=== PATIENT | female | born 1960 | race Caucasian/White ===

== ENCOUNTER 2024-12-12 04:37 | Inpatient (IN) | payer MEDICARE, SELFPAY ==
[2024-12-12] VITALS (15 sets, daily range): BP systolic 116–161; BP diastolic 63–96; PULSE 68–117; RESP 14–24; TEMP 36.2–36.9; O2SAT 88–100; BMI 36.5
--- NOTE | ~2024-12-12 | XR_ITS ---
Portable chest x-ray Comparison: 12/15/2024 Clinical History: Pulmonary edema Findings: Stable focal opacity adjacent to the left heart border at the left lung base. Right lung c lear. Cardiomediastinal silhouette is stable. Bones and soft tissues are unremarkable. Impression: Stable focal indeterminate opacity adjacent to left heart border. CT advised. Reviewed, dictated and finalized at location . SPACE QUALITY ENGINEER Impression: Stable focal indeterminate opacity adjacent to left heart border. CT advised.
--- NOTE | ~2024-12-12 | XR_ITS ---
XR chest 1V portable 12/15/2024 10:02 Indication: Pulmonary edema Procedure: AP portable chest Comparison: 12/12/2024 Findings: There is a lingular pulmonary nodule. Heart size normal. No focal air space disease, pulmon ezekiel edema, pleural effusion or suspected pneumothorax. The lungs are hyperinflated which is consisten t with, but not diagnostic of chronic obstructive pulmonary disease. Impression: 1: Lingular nodule. Follow-up CT chest recommended. Reviewed, dictated and finalized at location B. DEVELOPER Impression: 1: Lingular nodule. Follow-up CT chest recommended.
--- NOTE | ~2024-12-12 | XR_ITS ---
CHEST RADIOGRAPH CLINICAL HISTORY: Hypoxia, R lung pain . COMPARISON: None available TECHNIQUE: Single portable view of the chest. FINDINGS The cardiomediastinal silhouette is unremarkable. Increased interstitial markings are identified bilaterally, findings suggesting mild pulmonary vascul ar congestion. Coarse interstitial lung markings are present, likely chronic. The remainder of the lungs are clear. IMPRESSION: Mild pulmonary vascular congestion with coarse interstitial lung (likely chronic) without focal infil trate or effusion. Reviewed, dictated and finalized at location A. ROOM CULTIVATOR IMPRESSION: Mild pulmonary vascular congestion with coarse interstitial lung (likely chroni c) without focal infiltrate or effusion.
--- NOTE | ~2024-12-12 | CT_ITS ---
EXAMINATION:CT diagnostic chest wo con DATE: 12/16/2024 13:38 INDICATION: Abnormal chest radiograph. TECHNIQUE: Computed tomography (CT) of the chest was performed without intravenous contrast. Automate d exposure control and iterative reconstruction technique were employed. The dose-length product (DLP ) was 471.58 mGy-cm. COMPARISON: Chest single view 12/16/2024 FINDINGS: There is moderate emphysema. There are centrilobular nodules and tree-in-bud opacities in t he upper lobes and lower lobes. There are are scattered groundglass opacities in the lungs. There are mild airspace opacities in right middle lobe and lingula. Calcified right lung nodules and calcified right hilar and mediastinal lymph nodes are consistent with old granulomatous disease. No pleural ef fusion. The heart size is normal. No pericardial effusion. The liver demonstrate surface nodularity, consistent with cirrhosis. Calcifications in the liver and spleen are consistent with old granulomato us disease. There is mild thoracic spondylosis. There is a chronic burst fracture of L1. IMPRESSION: 1. Multifocal pneumonia. 2. Moderate emphysema. 3. Cirrhosis of the liver. Reviewed, dictated and finalized at location A. ANCE SERVICES COORDINATOR
--- OUTSIDE RECORDS SUMMARY | 2024-12-12 04:39 | XMS_ITS | Patient Health Record ---
Author Organization Formerly [facility], [facility] Address [address] [place] [address] Care Team Providers Care Hotel Reservationist Name Role Phone Erin Bryan Primary Care Provider [phone] Allergies Allergen (clinical drug ingredient) Drug/Non Drug Allergy documented on EMR Reaction Allergy Type Onset Date Status vancomycin Vancomycin Unknown Drug Allergy Activ e Reason For Referral No Information Medications Medication SIG (Take, Route, Frequency, Duration) Notes Start Date End Date Status PROzac 40 MG 1 capsule Orally Onc e a day for 30 day(s) Active traZODone HCl 150 MG 1 tablet at bedtime as needed Orally Once a day for 30 day(s) Active Wellbutrin XL 300 MG 1 tablet in the mor iva Orally Once a day for 30 day(s) Active Lactulose Active metFORMIN HCl 500 MG 1 tablet with a jah l Orally twice a day Active Vitamin D (Ergocalciferol) 1.25 MG (86547 UT) 1 capsule Orally for 30 day(s) Active Gabapentin 300 MG 1 capsule Orally thr ee times a day Active Losartan Potassium 50 MG 1 tablet Orally Once a day for 30 day(s) Active Social History Tobacco Use: Social History Observation Description Date Details (start date - stop date) Current Smoker NA - NA Sex Assigned At : Social History Observation Description Sex Assigned At Female Dont use, Tobacco Use/Smoking Question Answer Notes Are you a current every day smoker Additional Findings: Tobacco User Moderate cigar ette smoker (10-19 cigs/day) Problems Problem Type SNOMED Code ICD Code Onset Dates Problem Status W/U Status Risk Notes Problem Major depression (796041573) Major depression (F32.9) Active confirmed Problem Disorder caused by alcohol (disorder) (646710437) Alcohol use disorder (F10.99) Active confirmed Plan Of Treatment No Information Insurance Providers Payer Name Payer Address Payer Phone Subscriber Number Group Number Insured Name Patient Relationship to Insured Coverage Start Date Coverage End Date [employer] [address] [place] [phone] [id number] Lynn Castillo Self - patient is the insured 3 Medical (General) History Medical History History ICD Code MRSA in toe Surgical History Surgery Date(Month/Year) C section 1981 C section 1983 Hospitalization History Reason Date(Month/Year) 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
--- OUTSIDE RECORDS SUMMARY | 2024-12-12 04:39 | XMS_ITS | Encounter Summary ---
Author Organization [facility] Address [address] [place] [address] Phone Care Team Providers Care Cash On Delivery Clerk Name Role Phone Megha Orr MD Primary Care Provider Mukund Roche MD Unavailable [phone] Fady Amaral MD Primary Care Provider Encounter Details Date Type Department Care Team (Late st Contact Info) Description 06/03/2023 Orders Only [facility] Scanning, Provider Social History Tobacco Use Types Packs/Day Years Used Date Smoking Tobacco: Every Day Cigarettes 0.3 40 Vaping Smokeless Tobacco: Current Alcohol Use Standard Drinks/Week Comments Yes 0 (1 standard drink = 0.6 oz pure alcohol) 1/2 bottle of whiskey/day for 10 years AUDIT-C Answer Date Recorded Q1: How often do you have a drink containing alcohol? Never 12/16/2022 Q2: How many drinks containi ng alcohol do you have on a typical day when you are drinking? Patient does not drink Q3: How often do you have si x or more drinks on one occasion? 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 Gender Identity Female 03/10/2020 11:13 AM CDT Sexual Orientation Straight 03/10/2020 11 :13 AM CDT documented as of this encounter Plan of Treatment Upcoming Encounters Date Type Department Care Team (Late st Contact Info) Description 03/07/2025 11:00 AM CDT Hospital Encounter [address] [address] Omega Dhaliwal MD [address] [address] 03/07/2025 11:00 AM CDT - 03/07/2025 11:30 AM CDT Surgery [address] [address]Omega Bell MD [address] [address] COLONOSCOPY Scheduled Procedures Name Priority Associated Diagnoses Date/Ti me COLONOSCOPY History of colonic polyps Encounter for screening colonoscopy 03/07/2025 11:00 AM CDT COLONOSCOPY Alcoholic cirrhosis of liver without ascites (CMS/HCC) (HCC) documented as of this encounter Procedures Procedure Name Priority Date/Time Associated Diagnosis Comments SCAN - RADIOLOGY/IMAGING 06/03/2023 documented in this encounter Results * SCAN - RADIOLOGY/IMAGING (06/03/2023) Anatomical Region Laterality Modality Other us Provider Scanning Final Result documented in this encounter Visit Diagnoses Not on filedocumented in this encounter Care Teams Cash On Delivery Clerk Relationship Specialty Start Date End Date Megha Orr MD PCP - General Family Practice 10/22/22 12/01/24 Fady Amaral MD [address] [place] [address] [address] PCP - General Family Medicine 12/02/24 Mukund Roche MD [address] [facility] [address] [place] [address] Referring Physician Gastroenterology 12/02/24 documented as of this encounter
--- OUTSIDE RECORDS SUMMARY | 2024-12-12 04:40 | XMS_ITS | Encounter Summary ---
Author Organization [facility] Address [address] [place] [address] Phone Care Team Providers Care Caustic Mixer Name Role Phone Unknown, Notinfile Primary Care Provider Unavail able Megha Orr MD Primary Care Provider Mukund Roche MD Unavailable [phone] Fady Amaral MD Primary Care Provider Encounter Details Date Type Department Care Team (Late st Contact Info) Description 07/09/2022 Orders Only [facility] Scanning, Provider Social History Tobacco Use Types Packs/Day Years Used Date Smoking Tobacco: Every Day Smokeless Tobacco: Current Alcohol Use Standard Drinks/Week Comments Yes 0 (1 standard drink = 0.6 oz pure alcohol) 1/2 bottle of whiskey/day for 10 years Comments No Sex and Gender Information Value Date Recorded Sex Assigned at Not on file 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 Gender Identity Female 03/10/2020 11:13 AM CDT Sexual Orientation Straight 03/10/2020 11 :13 AM CDT documented as of this encounter Plan of Treatment Upcoming Encounters Date Type Department Care Team (Late st Contact Info) Description 03/07/2025 11:00 AM CDT Hospital Encounter [facility] [address] [place] [address] Omega Dhaliwal MD 4 [facility] [address] [place] [address] 03/07/2025 11:00 AM CDT - 03/07/2025 11:30 AM CDT Surgery [facility] [address] [place] [address] Omega Dhaliwal MD 4 [facility] [address] [place] [address] COLONOSCOPY Scheduled Procedures Name Priority Associated Diagnoses Date/Ti me COLONOSCOPY History of colonic polyps Encounter for screening colonoscopy 03/07/2025 11:00 AM CDT COLONOSCOPY Alcoholic cirrhosis of liver without ascites (CMS/HCC) (HCC) documented as of this encounter Procedures Procedure Name Priority Date/Time Associated Diagnosis Comments SCAN - LABS 07/09/2022 documented in this encounter Results * SCAN - LABS (07/09/2022) us Provider Scanning Edited Result - Final documented in this encounter Visit Diagnoses Not on filedocumented in this encounter Care Teams Caustic Mixer Relationship Specialty Start Date End Date Unknown, Notinfile PCP - General 02/08/20 10/21/22 Megha Orr MD PCP - General Family Practice 10/22/22 12/01/24 Fady Amaral MD 2 [facility] [address] [place] [address] PCP - General Family Medicine 12/02/24 Mukund Roche MD [address] [facility] [address] [place] [address] Referring Physician Gastroenterology 12/02/24 documented as of this encounter
--- OUTSIDE RECORDS SUMMARY | 2024-12-12 04:40 | XMS_ITS | Data Portability ---
Author Organization MARCUS JESUSKaleb Ramirez Address [address] [place] [address] Assessment No assessment recorded. Plan of Treatment Reminders Order Date Submit Date Provider Last Modified By Organization Details Last Modified Time Details Appointments None recorded . Lab pap, IG + HPV, cervical 2021 022 [facility], [address] [place], [place] [address], [address], [place], [address], 2 13:09:14 vaginal pathogen s panel, HARDY+prob e, vaginal fluid 2021 022 [facility], [address] [place] [address], [address], [place], [address], 2 06:09:56 culture, urine 2021 022 [facility], [address] [place], [place] [address]ese Yevgeniy, [address], [place], [address], 2 07:08:05 urinalys is, dipstick 2021 022 SNOW In-Office Order, Internal Use Only DO Not Attach Compendium DO Not Attach Compendium, Do Not Delete/merge, [id number] 2 10:55:21 HIV 1 + 2, meaningf ul use set 2021 022 [facility], [address] [place], [place] [address]ese Yevgeniy, [address], [place], [address], 09:12:44 hepatiti s C Ab, signal-t o-cutoff , serum or plasma 2021 [facility], [address], [address], [place], [address], 09:12:42 RPR (rapid plasma reagin), serum 2021 SNOWSUKUMAR WATTSJOANIE, [address], [address], [place], [address], 09:12:43 CBC w/ auto diff 2021 SNOW [facility], [address], [address], [place], [address], 09:12:43 culture, wound 2021 SNOW WATTSJOANIE, [address], [address], [place], [address], 19:08:33 HIV 1 + 2, meaningf ul use set 2021 [facility], [address] [facility] [address], [address], [place], [address], 19:08:35 HIV 2 Ab, signal/c utoff, IA, serum or plasma 2021 [facility], [address], [address], [place], [address], 19:08:34 hepatiti s C Ab, signal-t o-cutoff , serum or plasma 2021 SNOWSUKUMAR EDWARD, [address], [address], [place], [address], 2 19:08:36 RPR (rapid plasma reagin), serum 2021 [facility], [address] [facility] [address], [address], [place], [address], 2 19:08:38 CBC w/ auto diff 2021 022 [facility], [address] [facility] [address], [address], [place], [address], 2 19:08:31 HbA1c (hemoglo bin A1c), blood 2021 022 [email or web address] In-Office Order, Internal Use Only DO Not Attach Compendium DO Not Attach Compendium, Do Not Delete/merge, [id number] 2 16:47:47 microalb umin, urine 2021 022 [email or web address] In-Office Order, Internal Use Only DO Not Attach Compendium DO Not Attach Compendium, Do Not Delete/merge, [id number] 2 16:47:47 HbA1c (hemoglo bin A1c), blood 2020 021 SN[facility] In-Office Order, Internal Use Only DO Not Attach Compendium DO Not Attach Compendium, Do Not Delete/merge, [id number] 1 14:28:46 Referral None recorded . Procedures None recorded . Surgeries None recorded . Imaging MAMMO, screenin g, digital, bilatera l 2021 022 [facility] ([facility]), [address] [place], [address], 12:40:35 Medication Orders phenazop yridine 200 mg tablet 2021 022 [facility], [address] [place], [place], [id number], 2 11:09:29 sulfamet hoxazole 800 mg-trime thoprim 160 mg tablet 2021 [facility] #47766, [address] [place], [place], [id number], 10:33:26 [facility]iproflo xacin 500 mg tablet [facility]38902, [address] [place], [place], [id number], 10:06:38 metformi n 500 mg tablet 2021 [facility] [employer] [facility] #26766, [address] [place], [place], [id number], 14:26:21 omeprazo le 20 mg capsule, delayed release 2021 [facility] #34947, [address] [place], [place], [id number], 14:27:21 Advair Diskus 250 mcg-50 mcg/dose powder for inhalati on [email or web address]4793, [address] [place], [place], [id number], 12:15:05 Ventolin HFA 90 mcg/actu ation aerosol inhaler [id number], [address] [place], [place], [id number], 12:15:05 nicotine 14 mg/24 hr daily transder mal patch 2020 021 [facility] #68993, [address] [place], [place], [id number], 11:09:04 metformi n 1,000 mg tablet 2020 021 [email or web address] [facility] #77710, [address] [place], [place], [id number], 11:08:54 Benadryl 25 mg capsule 2020 021 SNOW [facility] #22246, [address] [place], [place], [id number], 12:43:36 Pennsaid 20 mg/gram/ actuatio n (2 %) topical soln in metered- dose pump 2020 [email or web address] [facility] #77152, [address] [place], [place], [id number], 12:06:30 Patient TargetsNo targets recorded. Patient Instructions Encounter Date Encounter Id Patient Instructions Last Modified By Organization Details Last Modified Time 07/22/2022 [id number] atrophic vaginitis: care instructions Not available 07/22/2022 14:41:44 Stress Incontinence: Care Instructions Not available 07/22/2022 14:41:32 Urge Incontinence: Care Instructions Not available 07/22/2022 14:41:31 kegel exercises: care instructions Not available 07/22/2022 14:41:32 bladder training : care instructions Not available 07/22/2022 14:41:31 Reason for Referral None Reported. Results Created Date Observation Date Name Description Value Unit Range Abnormal Flag Note LastModifiedBy Organization Detail LastModifiedTime 07/20/2007/20/2021 HbA1c (hemo globi n A1c), blood HbA1c 7.4% Not Available In-Office Order Internal Use Only DO Not Attach Compendium DO Not Attach Compendium, Do Not Delete/merge, [id number] 07/20/2021 12:40:55 02/07/20 22 02/06/2022 HbA1c (hemo globi n A1c), blood HbA1c 6.7% Not Available In-Office Order Internal Use Only DO Not Attach Compendium DO Not Attach Compendium, Do Not Delete/merge, [id number] 02/06/2022 12:42:20 02/07/20 22 02/06/2022 micro album in, urine Microalbumin Normal Not Available In-Of fice Order Internal Use Only DO Not Attach Compendium DO Not Attach Compendium, Do Not Delete/merge, [id number] 02/06/2022 12:42:22 05/10/20 22 05/11/2022 CBC WITH DIFFE RENTI AL/PL ATELE T WBC TNP x10e3 /uL Test not perfo rmed. No laven neftaly top tube submi tted. Not Available [facility] ([facility]) [address] [place], [address], 05/16/2022 19:08:31 05/10/20 22 05/11/2022 CBC WITH DIFFE RENTI AL/PL ATELE T RBC TNP Test not perfo rmed Not Available [facility] ([facility]) [address] [place], [address], 05/16/2022 19:08:31 05/10/20 22 05/11/2022 CBC WITH DIFFE RENTI AL/PL ATELE T hemoglobin TNP Test not perfo rmed Not Available [facility] ([facility]) [address] [place], [address], 05/16/2022 19:08:31 05/10/20 22 05/11/2022 CBC WITH DIFFE RENTI AL/PL ATELE T hematocrit TNP Test not perfo rmed Not Available [facility] ([facility]) [address] [place], [address], 05/16/2022 19:08:31 05/10/20 22 05/11/2022 CBC WITH DIFFE RENTI AL/PL ATELE T MCV COLLAR POINTER Not Available [facility] ([facility]) [address] [facility], [place], [address], 05/16/2022 19:08:31 05/10/20 22 05/11/2022 CBC WITH DIFFE RENTI AL/PL ATELE T MCH COLLAR POINTER Not Available [facility] ([facility]) [address] [facility], [place], [address], 05/16/2022 19:08:31 05/10/20 22 05/11/2022 CBC WITH DIFFE RENTI AL/PL ATELE T MCHC COLLAR POINTER Not Available [facility] ([facility]) [address] [facility], [place], [address], 05/16/2022 19:08:31 05/10/20 22 05/11/2022 CBC WITH DIFFE RENTI AL/PL ATELE T RDW COLLAR POINTER Not Available [facility] ([facility]) [address] [facility], [place], [address], 05/16/2022 19:08:31 05/10/20 22 05/11/2022 CBC WITH DIFFE RENTI AL/PL ATELE T platelets TNP Test not perfo rmed Not Available [facility] ([facility]) [address] [facility], [place], [address], 05/16/2022 19:08:31 05/10/20 22 05/11/2022 CBC WITH DIFFE RENTI AL/PL ATELE T neutrophils TNP Test not perfo rmed Not Available [facility] ([facility]) [address] [facility], [place], [address], 05/16/2022 19:08:31 05/10/20 22 05/11/2022 CBC WITH DIFFE RENTI AL/PL ATELE T lymphs TNP Test not perfo rmed Not Available [facility] ([facility]) [address] [facility], [place], [address], 05/16/2022 19:08:31 07/15/20 22 05/11/2022 CBC WITH DIFFE RENTI AL/PL ATELE T monocytes TNP Test not perfo rmed Not Available [facility] ([facility]) [address] [place], [address], 05/16/2022 19:08:31 05/10/20 22 05/11/2022 CBC WITH DIFFE RENTI AL/PL ATELE T eos TNP Test not perfo rmed Not Available [facility] ([facility]) [address] [place], [address], 05/16/2022 19:08:31 05/10/20 22 05/11/2022 CBC WITH DIFFE RENTI AL/PL ATELE T basos COLLAR POINTER Not Available [facility] ([facility]) [address] [place], [address], 05/16/2022 19:08:31 05/10/20 22 05/11/2022 CBC WITH DIFFE RENTI AL/PL ATELE T immature cells COLLAR POINTER Not Available [facility] ([facility]) [address] [place], [address], 05/16/2022 19:08:31 05/10/20 22 05/11/2022 CBC WITH DIFFE RENTI AL/PL ATELE T neutrophils (absolute) COLLAR POINTER Not Available [facility] ([facility]) [address] [place], [address], 05/16/2022 19:08:31 05/10/20 22 05/11/2022 CBC WITH DIFFE RENTI AL/PL ATELE T lymphs (absolute) TNP Test not perfo rmed Not Available [facility] ([facility]) [address] [place], [address], 05/16/2022 19:08:31 05/10/20 22 05/11/2022 CBC WITH DIFFE RENTI AL/PL ATELE T monocytes(ab solute) COLLAR POINTER Not Available [facility] ([facility]) [address] [facility], [place], [address], 05/16/2022 19:08:31 05/10/20 22 05/11/2022 CBC WITH DIFFE RENTI AL/PL ATELE T eos (absolute) TNP Test not perfo rmed Not Available [facility] ([facility]) [address] [facility], [place], [address], 05/16/2022 19:08:31 05/10/20 22 05/11/2022 CBC WITH DIFFE RENTI AL/PL ATELE T baso (absolute) TNP Test not perfo rmed Not Available [facility] ([facility]) [address] [facility], [place], [address], 05/16/2022 19:08:31 05/10/20 22 05/11/2022 CBC WITH DIFFE RENTI AL/PL ATELE T immature granulocytes COLLAR POINTER Not Available [facility] ([facility]) [address] [facility], [place], [address], 05/16/2022 19:08:31 05/10/20 22 05/11/2022 CBC WITH DIFFE RENTI AL/PL ATELE T immature grans (abs) COLLAR POINTER Not Available [facility] ([facility]) [address] [facility], [place], [address], 05/16/2022 19:08:31 05/10/20 22 05/11/2022 CBC WITH DIFFE RENTI AL/PL ATELE T NRBC COLLAR POINTER Not Available [facility] ([facility]) [address] [facility], [place], [address], 05/16/2022 19:08:31 05/10/20 22 05/11/2022 CBC WITH DIFFE RENTI AL/PL ATELE T hematology comments: COLLAR POINTER Not Available [facility] ([facility]) [address] [facility], [place], [address], 05/16/2022 19:08:31 05/10/20 22 05/15/2022 ANAER OBIC AND AEROB IC CULTU RE aerobic culture Final report Not Available [facility] ([facility]) [address] [facility], [place], [address], 05/16/2022 19:08:33 05/10/20 22 05/15/2022 ANAER OBIC AND AEROB IC CULTU RE result 1 Mixed skin lata Not Available [facility] ([facility]) [address] [facility], [place], [address], 05/16/2022 19:08:33 05/10/20 22 05/16/2022 ANAER OBIC AND AEROB IC CULTU RE anaerobic culture Final report Not Available [facility] ([facility]) [address] [facility], [place], [address], 05/16/2022 19:08:33 05/10/20 22 05/16/2022 ANAER OBIC AND AEROB IC CULTU RE result 1 Commen t No anaer obic growt h in 72 hours . Not Available [facility] ([facility]) [address] [facility], [place], [address], 05/16/2022 19:08:33 05/10/20 22 05/11/2022 PANEL 71335 0 HIV-2 Ab-O.D. ratio TNP Test not perfo rmed. No serum gel recei miguel ángel. Inter preta tion: A repea tedly react kristine HIV-2 resul t may indic ate infec tion with HIV-2 virus . Howev er, HIV1 posit kristine patie nts (50-9 0%) may also react in HIV-2 EIA. React kristine resul ts shoul d be inves tigat ed by suppl ement al tests . Posit kristine HIV-2 resul ts shoul d be consi dered indic ative of infec tion if HIV-1 has been ruled out with negat kristine HIV-1 testi ngblossom nt has epide miolo gical risk facto rs for HIV-2 , and suppl ement al tests such as HIV-2 Immun oblot (Inve stiga johann l use only) show the prese nce of HIV-2 speci fic viral bands . Eff ectiv e Augus t 2021, HIV-2 Antib odies by EIA will be made non-o rdera ble. [facility] offer s an HIV refle x algor ithm, 88834 5 HIV p24 Antig en/An tibod y With Refle x to Confi rmati on, which can be used to detec t and diffe renti ate both acute and estab lishe d HIV-1 and HIV-2 infec tion. Not Available [facility] ([facility]) [address] [facility], [place], [address], 05/16/2022 19:08:34 05/10/20 22 05/11/2022 HIV AB/P2 4 AG WITH REFLE X HIV Ab/P24 Ag screen TNP Test not perfo rmed. No serum gel recei miguel ángel. Not Available [facility] ([facility]) [address] [facility], [place], [address], 05/16/2022 19:08:35 05/10/20 22 05/11/2022 HCV ANTIB ROSI hep C virus Ab TNP s/co_ ratio Test not perfo rmed. No serum gel recei miguel ángel. Negat kristine: < 0.8 Indet ermin ate: 0.8 - 0.9 Posit kristine: > 0.9 HCV antib rosi alone does not diffe renti ate betwe en previ ous resol miguel ángel infec tion and activ e infec tion. The CDC and curre nt clini jeramy guide lines recom mend that a posit kristine HCV antib rosi resul t be follo wed up with an HCV RNA test to suppo rt the diagn osis of acute HCV infec tion. [facility] offer s Hepat itis C Virus (HCV) RNA, Diagn osis, HARDY (2639 20) and Hepat itis C Virus (HCV) Antib rosi with refle x to Quant itati ve Real- time PCR (2240 50). Not Available [facility] ([facility]) [address] [facility], [place], [address], 05/16/2022 19:08:36 05/10/20 22 05/11/2022 RPR RPR TNP Test not perfo rmed. No serum gel recei miguel ángel. Not Available [facility] ([facility]) [address] [facility], [place], [address], 05/16/2022 19:08:37 05/10/20 22 05/11/[address] PROBL EM request problem TNP Test not perfo rmed. No laven neftaly top tube submi tted. TEST: [id number] 9 CBC With Diffe renti al/Pl atele t Not Available [facility] ([facility]) [address] [facility], [place], [address], 05/16/2022 19:08:39 05/10/20 22 05/11/[address] PROBL EM request problem TNP Test not perfo rmed. No serum gel recei miguel ángel. TEST: 73461 0 Panel [id number] 0 04384 5 HIV Ab/p2 4 Ag with Refle x 51608 9 HCV Antib rosi 43869 2 RPR Not Available [facility] ([facility]) [address] [facility], [place], [address], 05/16/2022 19:08:40 07/12/20 22 07/13/2022 HCV ANTIB ROSI hep C virus Ab <0.1 s/co_ ratio 0.0-0. 9 Negat kristine: < 0.8 Indet ermin ate: 0.8 - 0.9 Posit kristine: > 0.9 HCV antib rosi alone does not diffe renti ate betwe en previ ous resol miguel ángel infec tion and activ e infec tion. The CDC and curre nt clini jeramy guide lines recom mend that a posit kristine HCV antib rosi resul t be follo wed up with an HCV RNA test to suppo rt the diagn osis of acute HCV infec tion. [facility] offer s Hepat itis C Virus (HCV) RNA, Diagn osis, HARDY (5398 70) and Hepat itis C Virus (HCV) Antib rosi with refle x to Quant itati ve Real- time PCR (1440 50). Not Available [facility] ([facility]) [address] [facility], [place], [address], 07/13/2022 09:12:42 07/12/20 22 07/13/2022 CBC WITH DIFFE RENTI AL/PL ATELE T WBC 5.4 x10e3 /uL 3.4-10 .8 Not Available [facility] ([facility]) [address] [facility], [place], [address], 07/13/2022 09:12:43 07/12/20 22 07/13/2022 CBC WITH DIFFE RENTI AL/PL ATELE T RBC 4.73 x10e6 /uL 3.77-5 .28 Not Available [facility] ([facility]) [address] [facility], [place], [address], 07/13/2022 09:12:43 07/12/20 22 07/13/2022 CBC WITH DIFFE RENTI AL/PL ATELE T hemoglobin 13.2 g/dL 11.1-1 5.9 Not Available [facility] ([facility]) [address] [facility], [place], [address], 07/13/2022 09:12:43 07/12/20 22 07/13/2022 CBC WITH DIFFE RENTI AL/PL ATELE T hematocrit 40.4 % 34.0-4 6.6 Not Available [facility] ([facility]) [address] [facility], [place], [address], 07/13/2022 09:12:43 07/12/20 22 07/13/2022 CBC WITH DIFFE RENTI AL/PL ATELE T MCV 85 fL 79-97 Not Available [facility] ([facility]) [address] [facility], [place], [address], 07/13/2022 09:12:43 07/12/20 22 07/13/2022 CBC WITH DIFFE RENTI AL/PL ATELE T MCH 27.9 pg 26.6-3 3.0 Not Available [facility] ([facility]) [address] [place], [address], 07/13/2022 09:12:43 07/12/20 22 07/13/2022 CBC WITH DIFFE RENTI AL/PL ATELE T MCHC 32.7 g/dL 31.5-3 5.7 Not Available [facility] ([facility]) [address] [place], [address], 07/13/2022 09:12:43 07/12/20 22 07/13/2022 CBC WITH DIFFE RENTI AL/PL ATELE T RDW 14.8 % 11.7-1 5.4 Not Available [facility] ([facility]) [address] [place], [address], 07/13/2022 09:12:43 07/12/20 22 07/13/2022 CBC WITH DIFFE RENTI AL/PL ATELE T platelets 104 x10e3 /uL 150-45 0 below low normal Actua l plate let count may be somew hat highe r than repor ethan due to aggre gatio n of plate lets in this sampl e. Not Available [facility] ([facility]) [address] [place], [address], 07/13/2022 09:12:43 07/12/20 22 07/13/2022 CBC WITH DIFFE RENTI AL/PL ATELE T neutrophils 69 % notest ab. Not Available [facility] ([facility]) [address] [place], [address], 07/13/2022 09:12:43 07/12/20 22 07/13/2022 CBC WITH DIFFE RENTI AL/PL ATELE T lymphs 21 % notest ab. Not Available [facility] ([facility]) [address] [place], [address], 07/13/2022 09:12:43 07/12/20 22 07/13/2022 CBC WITH DIFFE RENTI AL/PL ATELE T monocytes 7 % notest ab. Not Available [facility] ([facility]) [address] [facility] [place], [address], 07/13/2022 09:12:43 07/12/20 22 07/13/2022 CBC WITH DIFFE RENTI AL/PL ATELE T eos 2 % notest ab. Not Available [facility] ([facility]) [address] [place], [address], 07/13/2022 09:12:43 07/12/20 22 07/13/2022 CBC WITH DIFFE RENTI AL/PL ATELE T basos 1 % notest ab. Not Available [facility] ([facility]) [address] [place], [address], 07/13/2022 09:12:43 07/12/20 22 07/13/2022 CBC WITH DIFFE RENTI AL/PL ATELE T neutrophils (absolute) 3.7 x10e3 /uL 1.4-7. 0 Not Available [facility] ([facility]) [address] [place], [address], 07/13/2022 09:12:43 07/12/20 22 07/13/2022 CBC WITH DIFFE RENTI AL/PL ATELE T lymphs (absolute) 1.1 x10e3 /uL 0.7-3. 1 Not Available [facility] ([facility]) [address] [place], [address], 07/13/2022 09:12:43 07/12/20 22 07/13/2022 CBC WITH DIFFE RENTI AL/PL ATELE T monocytes(ab solute) 0.4 x10e3 /uL 0.1-0. 9 Not Available [facility] ([facility]) [address] [place], [address], 07/13/2022 09:12:43 07/12/20 22 07/13/2022 CBC WITH DIFFE RENTI AL/PL ATELE T eos (absolute) 0.1 x10e3 /uL 0.0-0. 4 Not Available [facility] ([facility]) [address] [facility], [place], [address], 07/13/2022 09:12:43 07/12/20 22 07/13/2022 CBC WITH DIFFE RENTI AL/PL ATELE T baso (absolute) 0.1 x10e3 /uL 0.0-0. 2 Not Available [facility] ([facility]) [address] [facility], [place], [address], 07/13/2022 09:12:43 07/12/20 22 07/13/2022 CBC WITH DIFFE RENTI AL/PL ATELE T immature granulocytes 0 % notest ab. Not Available [facility] ([facility]) [address] [facility], [place], [address], 07/13/2022 09:12:43 07/12/20 22 07/13/2022 CBC WITH DIFFE RENTI AL/PL ATELE T immature grans (abs) 0.0 x10e3 /uL 0.0-0. 1 Not Available [facility] ([facility]) [address] [facility], [place], [address], 07/13/2022 09:12:43 07/12/20 22 07/13/2022 CBC WITH DIFFE RENTI AL/PL ATELE T hematology comments: Note: Verif ied by dominic graf nDemond Not Available [facility] ([facility]) [address] [place], [address], 07/13/2022 09:12:43 07/12/20 22 07/13/2022 RPR RPR Non Reacti ve nonrea ctive Not Available [facility] ([facility]) [address] [facility], [place], [address], 07/13/2022 09:12:43 07/12/20 22 07/13/2022 HIV AB/P2 4 AG WITH REFLE X HIV Ab/P24 Ag screen Non Reacti ve nonrea ctive HIV Negat kristine HIV-1 /HIV- 2 antib odies and HIV-1 p24 antig en were NOT detec ethan. There is no labor atory evide nce of HIV infec tion. Not Available [facility] ([facility]) [address] [facility], [place], [address], 07/13/2022 09:12:44 07/12/20 22 07/14/2022 URINE CULTU RE,CO MPREH ENSIV E urine culture,comp rehensive Final report Not Available [facility] ([facility]) [address] [facility], [place], [address], 07/14/2022 07:08:05 07/12/20 22 07/14/2022 URINE CULTU RE,CO MPREH ENSIV E result 1 Commen t Mixed uroge nital lata 50,00 0-100 ,000 colon y formi ng units per mL Not Available [facility] ([facility]) [address] [facility], [place], [address], 07/14/2022 07:08:05 07/12/20 22 07/12/2022 urina lysis , dipst ick Leukocytes Negati ve Not Available In-Office Order Internal Use Only DO Not Attach Compendium DO Not Attach Compendium, Do Not Delete/merge, [id number] 07/12/2022 10:53:30 07/12/20 22 07/12/2022 urina lysis , dipst ick Nitrite negati ve Not Available In-Office Order Internal Use Only DO Not Attach Compendium DO Not Attach Compendium, Do Not Delete/merge, [id number] 07/12/2022 10:53:30 07/12/20 22 07/12/2022 urina lysis , dipst ick Urobilinogen 1 Not Available In-Of fice Order Internal Use Only DO Not Attach Compendium DO Not Attach Compendium, Do Not Delete/merge, 07/12/2022 10:53:30 07/12/20 22 07/12/2022 urina lysis , dipst ick Protein Negati ve Not Available In-Office Order Internal Use Only DO Not Attach Compendium DO Not Attach Compendium, Do Not Delete/merge, 07/12/2022 10:53:30 07/12/20 22 07/12/2022 urina lysis , dipst ick pH 7.0 Not Available In-Office Order Internal Use Only DO Not Attach Compendium DO Not Attach Compendium, Do Not Delete/merge, 07/12/2022 10:53:30 07/12/20 22 07/12/2022 urina lysis , dipst ick Blood Negati ve Not Available In-Office Order Internal Use Only DO Not Attach Compendium DO Not Attach Compendium, Do Not Delete/merge, 07/12/2022 10:53:30 07/12/20 22 07/12/2022 urina lysis , dipst ick Specific Donnellson 1.020 Not Available In-Off ice Order Internal Use Only DO Not Attach Compendium DO Not Attach Compendium, Do Not Delete/merge, 07/12/2022 10:53:30 07/12/20 22 07/12/2022 urina lysis , dipst ick Ketone Negati ve Not Available In-Office Order Internal Use Only DO Not Attach Compendium DO Not Attach Compendium, Do Not Delete/merge, 07/12/2022 10:53:30 07/12/20 22 07/12/2022 urina lysis , dipst ick Bilirubin Negati ve Not Available In-Office Order Internal Use Only DO Not Attach Compendium DO Not Attach Compendium, Do Not Delete/merge, 07/12/2022 10:53:30 07/12/20 22 07/12/2022 urina lysis , dipst ick Glucose 100 Not Available In-Office Order Internal Use Only DO Not Attach Compendium DO Not Attach Compendium, Do Not Delete/merge, 07/12/2022 10:53:30 07/22/20 22 07/24/2022 NUSWA B VAGIN ITIS PLUS (VG+) atopobium vaginae Low - 0 score Not Available [facility] ([facility]) [address] [facility], [place], [address], 07/24/2022 06:09:56 07/22/20 22 07/24/2022 NUSWA B VAGIN ITIS PLUS (VG+) bvab 2 Low - 0 score Not Available [facility] ([facility]) [address] [place], [address], 07/24/2022 06:09:56 07/22/20 22 07/24/2022 NUA B VAGIN ITIS PLUS (VG+) megasphaera 1 Low - 0 score Calcu late total score by raymundo dinh the 3 indiv idual bacte rial vagin osis (BV) marke r score s toget her. Total score is inter prete d as follo ws: Total score 0-1: Indic ates the absen ce of BV. Total score 2: Indet ermin ate for BV. Addit ional clini jeramy data shoul d be evalu ated to estab raúl a diagn osis. Total score 3-6: Indic ates the prese nce of BV. This test was devel oped and its perfo rmanc e car cteri stics deter mined by [facility]. It has not been clear ed or appro miguel ángel by the Food and Drug Admin istra tion. Not Available [facility] ([facility]) [address] [facility], [place], [address], 07/24/2022 06:09:56 07/22/20 22 07/24/2022 NUA B VAGIN ITIS PLUS (VG+) saba albicans, HARDY Negati ve negati ve Not Available [facility] ([facility]) [address] [facility], [place], [address], 07/24/2022 06:09:56 07/22/20 22 07/24/2022 NUSWA B VAGIN ITIS PLUS (VG+) saba glabrata, HARDY Negati ve negati ve Not Available [facility] ([facility]) [address] [place], [address], 07/24/2022 06:09:56 07/22/20 22 07/24/2022 NUA B VAGIN ITIS PLUS (VG+) trich vag by HARDY Negati ve negati ve Not Available [facility] ([facility]) [address] [facility], [place], [address], 07/24/2022 06:09:56 07/22/20 22 07/24/2022 NUA B VAGIN ITIS PLUS (VG+) chlamydia trachomatis, HARDY Negati ve negati ve Not Available [facility] ([facility]) [address] [place], [address], 07/24/2022 06:09:56 07/22/20 22 07/24/2022 NUA B VAGIN ITIS PLUS (VG+) neisseria gonorrhoeae, HARDY Negati ve negati ve Not Available [facility] ([facility]) [address] [place], [address], 07/24/2022 06:09:56 07/22/20 22 07/24/2022 IGP, APTIM A HPV HPV aptima Negati ve negati ve This nucle ic acid ampli ficat ion test detec ts fourt een high- risk HPV types (16,1 8,31, 33,35 ,39,4 5,51, 52,56 ,58,5 9,66, 68) witho ut diffe renti ation . Not Available [facility] ([facility]) [address] [place], [address], 07/30/2022 13:09:14 07/22/20 22 07/30/2022 IGP, APTIM A HPV diagnosis: Commen t NEGAT KRISTINE FOR INTRA EPITH ELIAL LESIO N OR MARIANELA FERNANDES . REACT KRISTINE CELLU MARIA VICTORIA ANDUJAR ES AND/O R ANASTASIA R ARE PRESE NT. Not Available [facility] ([facility]) [address] [place], [address], 07/30/2022 13:09:14 07/22/20 22 07/30/2022 IGP, APTIM A HPV specimen adequacy: Devin feldman Satis facto ry for evalu ation . No endoc ervic al compo nent is ident ified . Not Available [facility] ([facility]) [address] [place], [address], 07/30/2022 13:09:14 07/22/20 22 07/30/2022 IGP, APTIM A HPV clinician provided ICD10: Devin feldman Z01.4 19 Not Available [facility] ([facility]) [address] [place], [address], 07/30/2022 13:09:14 07/22/20 22 07/30/2022 IGP, APTIM A HPV performed by: Devin Reyez ws, Cytot echno logis t (ASCP ) Not Available [facility] ([facility]) [address] [place], [address], 07/30/2022 13:09:14 07/22/20 22 07/30/2022 IGP, APTIM A HPV electronical ly signed by: Devin Jimenez MD, Patho logis t Not Available [facility] ([facility]) [address] [place], [address], 07/30/2022 13:09:14 07/22/20 22 07/30/2022 IGP, APTIM A HPV . . Not Available [facility] ([facility]) [address] [place], [address], 07/30/2022 13:09:14 07/22/20 22 07/30/2022 IGP, APTIM A HPV note: Commen t The Pap smear is a scree iva test desig milly to aid in the detec tion of anna ligna nt and malig nant condi tions of the uteri ne cervi x. It is not a diagn ostic proce dure and shoul d not be used as the sole means of detec ting cervi jeramy cance r. Both false -posi tive and false -nega tive repor ts do occur . Not Available [facility] ([facility]) [address] [facility], [place], [address], 07/30/2022 13:09:14 07/22/20 22 07/30/2022 IGP, APTIM A HPV test methodology: Commen t This liqui d based ThinP rep(R ) pap test was scree milly with the use of an image guide d kristy rodriguez. Not Available [facility] ([facility]) [address] [facility], [place], [address], 07/30/2022 13:09:14 10/25/20 21 10/25/2021 US, abdom en, limit ed No observ ation record ed. [address] [place], [address], 10/25/2021 21:45:14 08/06/20 22 08/05/2022 MAMMO , scree iva, digit al, bilat eral No observ ation record ed. [address] ([facility]) [address] [place], [address], 08/08/2022 22:12:26 08/06/20 22 08/05/2022 MAMMO , scree iva, digit al, bilat eral No observ ation record ed. [facility] [place] [facility] [address] [place], [address], 08/07/2022 12:02:03 Result Notes None recorded. Problems Name Problem SNOMED Code Status Onset Date Resolution Date Notes Provider Name and Address Organization Details Recorded Time Type 2 diabetes mellitus 97740602 Active 2017 Jordy Shaver PA-C Attn: Accountin g,[address] [facility], [place], [address] [facility] 8 14:50:45 Neuropath y 741052850 Active 2017 Jordy Shaver PA-C Attn: Accountin g,[address] [facility], [place], [address] [facility] 8 14:52:08 Toxic effect of ethyl alcohol 32844089 Active 2017 Jordy Shaver PA-C Attn: Accountin g,[address] [facility], [place], [address] [facility] 8 14:53:57 Hepatitis C screening Active 2017 Jordy Shaver PA-C Attn: Accountin g,[address] [facility], [place], [address] [facility] 8 14:57:08 Tobacco user 414035442 Active 2017 Jordy Shaver PA-C Attn: Accountin g,[address] [facility], [place], [address] [facility] 8 15:01:09 Essential hypertens ion 53999788 Active 2017 Jordy Shaver PA-C Attn: Accountin g,[address] [facility], [place], [address] [facility] 8 15:01:23 Depressiv e disorder 09067471 Active 2017 Jordy Shaver PA-C Attn: Accountin g,[address] [facility], [place], [address] [facility] 8 12:07:18 Screening for malignant neoplasm of colon Active 2017 Jordy Shaver PA-C Attn: Accountin g,[address] [facility], [place], [address] [facility] 8 12:12:46 Ultrasono graphy of liver abnormal [id number] 37283 Active 2017 Jordy Shaver PA-C Attn: Carlo dinh,[address] [place] [address], [address], [place] [facility] 8 12:36:08 Low back pain 897372083 Active 2017 Jordy Shaver PA-C Attn: Carlo dinh,[address] [place] [address], [address] [facility] 8 12:00:23 Vitamin D deficienc y 64844457 Active 2017 Jordy Shaver PA-C Attn: Carlo dinh,[address] [place] [address], [address] [facility] 8 12:10:37 Acute pharyngit is 881175846 Active 2017 Jordy Shaver PA-C Attn: Carlo dinh,[address] [place] [address], [address] [facility] 8 10:11:30 Administr ation of influenza vaccine Active 2017 Jordy Shaver PA-C Attn: Carlo dinh,[address] [place], [address] [facility] 8 11:15:46 Degenerat ion of lumbar intervert ebral disc 02904776 Active 2017 Jordy Shaver PA-C Attn: Carlo dinh,[address] [place] [address], [address] [facility] 8 11:57:21 Bilateral knee pain Active 2018 Jordy Shaver PA-C Attn: Carlo dinh,[address] [place] [address], [address] [facility] 9 12:43:15 Pain in right knee Active 2018 ultrasoun d indicates a tear in meniscus , radiologi st wanted an mri to better delineate Jordy Shaver PA-C Attn: Accountin g,[address] [facility], [place], [address], [place] [facility] 9 22:17:59 Rupture of medial collatera l ligament of knee 452227636 Active 2018 Jordy Shaver PA-C Attn: Accountin g,[address] [facility], [place], [address] [facility] 9 10:58:00 Acute sinusitis 60687803 Active 2019 Jordy Shaver PA-C Attn: Accountin g,[address] [facility], [place], [address] [facility] 0 11:48:25 Chronic obstructi ve pulmonary disease 14047171 Active 2019 Jordy Shaver PA-C Attn: Accountin g,[address] [facility], [place], [address] [facility] 0 11:49:45 Cirrhosis of liver 65382289 Active 2019 Jordy Shaver PA-C Attn: Accountin g,[address] [facility], [place], [address] [facility] 0 10:37:07 Insomnia 220448993 Active 2019 Jordy Shaver PA-C Attn: Accountin g,[address] [facility], [place], [address], [place] [facility] 0 11:43:28 Gastroeso phageal reflux disease 241142670 Active 2019 Jordy Shaver PA-C Attn: Accountin g,[address] [facility], [place], [address] [facility] 0 11:57:34 Serum vitamin B12 borderlin e low 438791796 Active 2019 Jordy Shaver PA-C Attn: Accountin g,[address] [facility], [place], [address], [place] [facility] 0 13:01:25 Acute folliculi tis 681805450 Active 2020 Jordy Shaver PA-C Attn: Carlo dinh,[address] [facility], [place], [address], [place] [facility] 1 17:40:11 Foot callus 872725537 Active 2020 left great toe Jordy Shaver PA-C Attn: Carlo dinh,[address] [facility], [place], [address], [place] [facility] 1 17:41:44 Pruritic disorder 470653754 Active 2020 Jordy Shaver PA-C Attn: Carlo dinh,[address] [facility], [place], [address], [place] [facility] 1 12:41:32 HIV screening Active 2021 Jordy Shaver PA-C Attn: Merlindylan dinh,[address] [place], [address], [place] [facility] 2 14:28:30 Administr ation of tetanus vaccine Active 2021 Jordy Shaver PA-C Attn: Carlo dinh,[address] [facility], [place], [address], [place] [facility] 2 14:31:01 Dysuria 28604746 Active 2021 Jordy Shaver PA-C Attn: Merlindylan dinh,[address] [facility], [place], [address] [facility] 2 10:32:20 Menopausa l syndrome 216514171 Active 2021 ANDREY GARCIA Attn: Merlindylan dinh,[address] [place], [address], [place] [facility] 2 15:37:41 Mixed urinary incontine nce 536007894 Active 2021 ANDREY GARCIA Attn: Carlo allegra,[address] [place], [place], [address] [place] [address], [place] [facility] 2 15:37:44 Atrophic vaginitis 60770742 Active 2021 ANDREY GARCIA Attn: Carlo dinh,[address], [place], [address], [facility] 2 15:37:45 Problem Notes None recorded. Procedures Surgical History Date Name Laterality Status Provider Name and Address Organization Details Recorded Time 2 Caesarean Section completed Judy Faria MA [facility] 03/02/2018 14:27:19 Imaging Results Imaging Date Name Status LastModified by Organiz ation Details LastModified Time 10/25/2021 US, abdomen, limited completed [address] [place], [address], 10/25/2021 21:45:14 08/05/2022 MAMMO, screening, digital, bilateral completed [address] ([facility]) [address] [place], [address], 08/08/2022 22:12:26 08/05/2022 MAMMO, screening, digital, bilateral completed [facility] [place] [facility] [address] [place], [address], 08/07/2022 12:02:03 Procedure Notes None recorded. Medical Equipment None Reported. Allergies No known drug allergies Medications Name Sig Start Date Stop Date Status Note LastModified by Organization Details LastModified Time losartan 50 mg tablet TAKE 1 TABLET BY MOUTH EVERY DAY IN THE MORNING 2021 active Not Available Not Available Not Avai lable cyclobenzap rine 10 mg tablet Take 1 tablet every day by oral route at bedtime for 30 days. 04/25 completed Not Available Not Available Not Available metformin 500 mg tablet 1 tab daily before food . for 14 days ,then 1 tab po twice dialy for 14 days , then 1 tab in am and 2 tabs in pm for 14 days , then 2 tabs twice daily and maintain active Not Available Not Available No t Available bupropion HCl SR 150 mg tablet,12 hr sustained-r elease 12/08 completed Not Available Not Available Not Available promethazin e-DM 6.25 mg-15 mg/5 mL oral syrup Take 5 mL every 6 hours by oral route for 10 days. 04/25 completed Not Available Not Available Not Available nicotine 14 mg/24 hr daily transdermal patch APPLY 1 PATCH TOPICALLY TO THE SKIN EVERY DAY 07/19 completed Not Available Not Available Not Available azithromyci n 250 mg tablet TAKE 2 TABLETS (500 MG) BY ORAL ROUTE ONCE DAILY FOR 1 DAY THEN 1 TABLET (250 MG) BY ORAL ROUTE ONCE DAILY FOR 4 DAYS 12/08 completed Not Available Not Available Not Available ibuprofen 800 mg tablet Take 1 tablet 3 times a day by oral route with meals for 10 days. 03/10 completed Not Available Not Available Not Available fluconazole 150 mg tablet Take 1 tablet every 72 hours by oral route for 9 days. 04/25 completed Not Available Not Available Not Available phenazopyri dine 200 mg tablet Take 1 tablet 3 times a day by oral route for 2 days. 07/19 completed Not Available Not Available Not Available prednisone 20 mg tablet Take 2 tablet(s) twice a day by oral route as directed for 2 days. 12/08 completed Not Available Not Available Not Available metoprolol succinate ER 100 mg tablet,exte nded release 24 hr 04/25 completed Not Available Not Available Not Available ciprofloxac in 500 mg tablet TAKE 1 TABLET BY MOUTH EVERY 12 HOURS FOR 10 DAYS 07/12 completed Not Available Not Available Not Available sulfamethox azole 800 mg-trimetho prim 160 mg tablet TAKE 1 TABLET BY MOUTH EVERY 12 HOURS FOR 10 DAYS active Not Available Not Available No t Available tramadol 50 mg tablet 04/25 completed Not Available Not Available Not Available methylpredn isolone acetate 80 mg/mL suspension for injection Take 1 mL by injection route for 1 day. 12/08 completed Not Available Not Available Not Available trazodone 100 mg tablet TAKE 1 TABLET BY MOUTH EVERY DAY AT BEDTIME NEEDED 07/22 completed Not Available Not Available Not Available baclofen 10 mg tablet Take 1 tablet 3 times a day by oral route as needed for 30 days. 04/25 completed Not Available Not Available Not Available pantoprazol e 40 mg tablet,lamine yed release Take 1 tablet every day by oral route for 30 days. 04/25 completed Not Available Not Available Not Available trazodone 150 mg tablet Take by oral route for 90 days. active Not Available Not Available No t Available metformin 1,000 mg tablet 0.5 tab at dinner for 14 days . then 0.5 tab twice daily for 14 , 0.5 tab in am and 1 tab inpm for 14 days ; then 1 tab twice daily and maintain 07/19 completed Not Available Not Available Not Available triamcinolo ne acetonide 0.1 % topical ointment APPLY A THIN LAYER TO THE AFFECTED AREA(S) BY TOPICAL ROUTE 2 TIMES PER DAY 07/19 completed Not Available Not Available Not Available nicotine 21 mg/24 hr daily transdermal patch Apply 1 patch every day by transderm al route. 12/08 completed Not Available Not Available Not Available fluoxetine 10 mg capsule 12/08 completed Not Available Not Available Not Available gabapentin 300 mg capsule TAKE 2 CAPSULES BY MOUTH THREE TIMES DAILY active Not Available Not Available No t Available omeprazole 20 mg capsule,del ayed release active Not Available Not Available Not Available Banophen 25 mg capsule TAKE 1-2 CAPSULES BY MOUTH EVERY NIGHT AT BEDTIME NEEDED FOR ITCHING active Not Available Not Available No t Available ergocalcife rol (vitamin D2) 1,250 mcg (50,000 unit) capsule TAKE 1 CAPSULE BY MOUTH EVERY WEEK WITH MEALS 07/19 completed Not Available Not Available Not Available lisinopril 10 mg-hydrochl orothiazide 12.5 mg tablet 12/08 completed Not Available Not Available Not Available albuterol sulfate HFA 90 mcg/actuati on aerosol inhaler INHALE 2 PUFFS BY MOUTH THREE TIMES DAILY NEEDED active Not Available Not Available No t Available losartan 50 mg-hydrochl orothiazide 12.5 mg tablet TAKE 1 TABLET BY MOUTH EVERY DAY IN THE MORNING 04/25 completed Not Available Not Available Not Available fluoxetine 20 mg capsule TAKE 1 CAPSULE BY MOUTH EVERY DAY active Not Available Not Available No t Available naproxen 500 mg tablet Take 1 tablet twice a day by oral route with meals for 30 days. 03/10 completed Not Available Not Available Not Available amoxicillin 875 mg-potassiu m clavulanate 125 mg tablet Take 1 tablet every 12 hours by oral route for 10 days. 04/25 completed Not Available Not Available Not Available hydroxyzine pamoate 25 mg capsule 12/08 completed Not Available Not Available Not Available cyclobenzap rine 5 mg tablet 04/25 completed Not Available Not Available Not Available bupropion HCl XL 300 mg 24 hr tablet, extended release TAKE 1 TABLET BY MOUTH EVERY DAY IN THE MORNING active Not Available Not Available No t Available nitrofurant oin monohydrate /macrocryst als 100 mg capsule 04/25 completed Not Available Not Available Not Available lactulose 10 gram/15 mL oral solution TAKE 30 ML BY MOUTH FOUR TIMES DAILY NEEDED active Not Available Not Available No t Available diclofenac 1 % topical gel APPLY 2 GRAMS TOPICALLY TO AFFECTED AREA(S) FOUR TIMES DAILY 04/25 completed Not Available Not Available Not Available Xifaxan 550 mg tablet Take 1 tablet twice a day by oral route for 30 days. 04/25 completed Not Available Not Available Not Available Pennsaid 20 mg/gram/act uation (2 %) topical soln in metered-dos e pump APPLY 2 PUMPS TO THE AFFECTED AREA OF THE KNEE TWICE DAILY 02/06 completed does not work Not Available Not Available Not Available Wixela Inhub 250 mcg-50 mcg/dose powder for inhalation active Not Available Not Available N ot Available Vitals Date Recorded Body height Body mass index (BMI) Body weight Oxygen saturation Oxygen saturation in Arterial blood by Pulse oximetry Heart rate Body temperature Systolic blood pressure Diastolic blood pressure Provider Name and Address Organization Details Last Updated DateTime 1 172.72 cm 35.9 kg/m2 680898. 08 g 93 % 93 % 85 /min 98.5 [degF] 124 mm[Hg] 70 mm[Hg] Lexi Kellogg [place] [facility] 1 12:23:49 Date Recorded Body height Body mass index (BMI) Body weight Oxygen saturation Oxygen saturation in Arterial blood by Pulse oximetry Heart rate Systolic blood pressure Diastolic blood pressure Provider Name and Address Organization Details Last Updated DateTime 2 172.72 cm 36.7 kg/m2 550124. 19 g 93 % 93 % 76 /min 122 mm[Hg] 62 mm[Hg] Lexi Kellogg MA [facility] 2 11:49:38 Date Recorded Body height Body mass index (BMI) Body weight Oxygen saturation Oxygen saturation in Arterial blood by Pulse oximetry Heart rate Systolic blood pressure Diastolic blood pressure Provider Name and Address Organization Details Last Updated DateTime 2 172.72 cm 35.9 kg/m2 065472. 24 g 95 % 95 % 96 /min 126 mm[Hg] 72 mm[Hg] Lexi Kellogg MA [facility] 2 14:13:26 Date Recorded Body height Body mass index (BMI) Body weight Oxygen saturation Oxygen saturation in Arterial blood by Pulse oximetry Heart rate Systolic blood pressure Diastolic blood pressure Provider Name and Address Organization Details Last Updated DateTime 2 172.72 cm 37.4 kg/m2 911410 g 94 % 94 % 74 /min 126 mm[Hg] 72 mm[Hg] Lexi Kellogg MA [facility] 2 10:09:44 Date Recorded Body height Body mass index (BMI) Body weight Heart rate Body temperature Oxygen saturation Oxygen saturation in Arterial blood by Pulse oximetry Systolic blood pressure Diastolic blood pressure Provider Name and Address Organization Details Last Updated DateTime 2 172.72 cm 36.3 kg/m2 916640. 17 g 62 /min 98.3 [degF] 93 % 93 % 140 mm[Hg] 60 mm[Hg] Judy Faria MA [facility] 2 14:07:13 Social History Question Answer Notes LastModified by Organizat ion Details LastModified Time Tobacco Smoking Status Current Every Day Smoker Judy Faria MA null, [facility] 03/02/2018 14:25:04 Do You Have An Advance Directive? No Information not available 03/02/2018 What Is Your Level Of Alcohol Consumption? None Quit 01/2020 Information not available 01/19/2021 What Is Your Level Of Caffeine Consumption? Occasional Information not available 03/02/2018 How Much Tobacco Do You Chew? None Information not available 03/02/2018 In The 14 Days Before Symptom Onset, Have You Had Close Contact With A Laboratory-[facility] COVID-19 While That Case Was Ill? No Information not available 07/22/2022 In The 14 Days Before Symptom Onset, Have You Had Close Contact With A Person Who Is Under Investigation For COVID-19 While That Person Was Ill? No Information not available 07/22/2022 Have You Been To An Area Known To Be High Risk For COVID-19? No Information not available 07/22/2022 Are You Currently Employed? No Information not available 07/22/2022 What Type Of Diet Are You Following? REGULAR Information not available 03/02/2018 Education 2 Year College Information not available 03/02/2018 Are There Any Guns Present In Your Home? No Information not available 03/02/2018 Hard Of Hearing Or Deaf In One Or Both Ears? Yes Information not available 03/02/2018 Legally Blind In One Or Both Eyes? No Information not available 03/02/2018 Marital Status Informatio n not available 03/02/2018 What Was The Date Of Your Most Recent Tobacco Screening? 07/22/2022 Information not available 07/22/2022 Performs Monthly Self-breast Exam? Yes Information not available 03/02/2018 What Is Your Relationship Status? Information not available 01/19/2021 Do You Use Your Seat Belt Or Car Seat Routinely? Yes Information not available 01/19/2021 Seat Belts Used Routinely Yes Information not available 03/02/2018 Are You Sexually Active? No Information not available 07/22/2022 Smoke Alarm In Home Yes Information not available 03/02/2018 Do You Have Smoke And Carbon Monoxide Detectors In Your Home? Yes Information not available 01/19/2021 At What Age Did You Start Smoking Tobacco? 22 Information not available 03/02/2018 Are You Passively Exposed To Smoke? Yes Information not available 01/19/2021 How Much Tobacco Do You Smoke? 1 PPD Information not available 04/25/2020 General Stress Level Medium Information not available 03/02/2018 Do You Feel Stressed (tense, Restless, Nervous, Or Anxious, Or Unable To Sleep At Night)? [id number] Information not available 01/19/2021 Do You Use Any Illicit Or Recreational Drugs? Yes Napoleon Information not available 01/19/2021 Do You Use Sunscreen Routinely? Yes Information not available 03/02/2018 Has Tobacco Cessation Counseling Been Provided? Yes Information not available 07/22/2022 On What Date Was Tobacco Cessation Counseling Provided? 07/22/2022 Information not available 07/22/2022 How Many Years Have You Smoked Tobacco? 30 Information not available 03/02/2018 Sex: Female Functional Status Question Answer Note LastModified by Organizat ion Details LastModified Time What is your exercise level? Occasional Information not available 03/02/2018 Mental Status None recorded. Family History Relationship Description Onset Age of this Age Resolved Age Notes LastModified by Organization Details LastModified Time Mother Diabetes mellitus [email or web address] Not available 2017 14:24:28 Mother Hypertensive disorder mnelsonma Not available 2017 14:24:55 Father Disease of liver mnelsonma Not available 2017 14:24:38 Father Hypertensive disorder mnelsonma Not available 2017 14:24:55 Medical History Condition Response Coronary Artery Disease N Other N Atrial Fibrillation N High Blood Pressure Y Thyroid Problems N Kidney or Bladder Problems N Depression Y COPD Y Blood Clots N GI Problems N Skin Problems N Anemia N Heart Attack ([place]) N Diabetes Y Anxiety Disorder Y Muscle, Joint, or Bone Problems Y Seizures/Epilepsy N Acid Reflux (GERD) Y Cancer N Stroke N Allergies Y Asthma N High Cholesterol N Hepatitis Y Liver Disease N Headaches Y Osteoporosis N Heart Failure N Gynecological History Statement/Question Response Menses Monthly N If Post Menopausal, Age at Menopause 53 Age at Menarche 17 Current Control Method None Age at First Child 21 On BCP's at Conception? N Obstetrics History GPAL:G 2 P 1 1 0 3 Type Value Full Term 1 Premature 1 Living 3 Total 2 Immunizations Vaccine Type Date Status Note Provider Nam e and Address Organization Details Recorded Time COVID-19, mRNA, LNP-S, PF, 100 mcg/0.5mL dose or 50 mcg/0.25mL dose 1 completed Lexi Kellogg [place], [place] [facility] 07/20/2021 12:20:53 COVID-19, mRNA, LNP-S, PF, 100 mcg/0.5mL dose or 50 mcg/0.25mL dose 1 completed Lexi Kellogg MA [place], [facility] 07/20/2021 12:21:04 Influenza, split virus, quadrivalent, PF 8 completed Not Available [facility] 11/13/2019 02:36:31 Influenza, split virus, quadrivalent, preservative 9 completed Not Available [facility] 11/13/2019 02:49:50 Tdap 2 completed Lexi Kellogg MA [place], [facility] 05/16/2022 15:05:54 Past Encounters Encounter ID Performer Location Encounter Start Date Encounter Closed Date Diagnosis/Indication Diagnosis SNOMED-CT Code Diagnosis ICD10 Code Diagnosis Note [id number] GEOVANNY Mcfarland (Adult Med) [address] [place] [address] 79361-894 0 03/02/2018 13:54:22 03/02/2018 15:12:23 Type 2 diabetes mellitus 53080607 E11.9 Neuropathy 712901387 G62 [address] of ethyl alcohol 72837035 T51.0X1A Hepatitis C screening 41 0876772 Z11.59 Essential hypertension 59915261 I10 Tobacco user 115959172 Z 72.0 [id number] GEOVANNY Mcfarland (Adult Med) [address] [place] [address] 81805-066 0 04/13/2018 10:58:26 04/14/2018 09:34:26 Type 2 diabetes mellitus 56229332 E11.9 Neuropathy 027879512 G62 .9 Tobacco user 905335164 Z 72.0 Depressive disorder 3548 9007 F33.9 Screening for malignant neoplasm of colon 839881657 Z12.11 Ultrasonog keturah of liver abnormal 2014945308 0836866 R93.2 [id number] GEOVANNY Mcfarland (Adult Med) [address] [place] [address] 59476-290 0 06/10/2018 10:39:35 06/10/2018 12:30:00 Low back pain 510187935 M54.5 Vitamin D deficiency 347 23268 E55.9 Type 2 melanie betes mellitus 37574388 E11.9 Depressive disorder 3548 [address] of ethyl alcohol 11170271 T51.0X1A Essential hypertension 51572731 I10 Tobacco user 089448204 Z 72.0 [id number] GEOVANNY Mcfarland (Adult Med) [address] [place] [address] 60113-601 0 08/12/2018 09:20:30 08/12/2018 10:23:18 Tobacco user 436985361 Z72.0 Acute pharyngitis 672322 003 J02.9 Essential hypertension 09598915 I10 [id number] GEOVANYN Mcfarland (Adult Med) [address] [place] [address] 24177-471 0 08/26/2018 09:50:18 08/26/2018 15:29:16 Administration of influenza vaccine 78039985 Z23 Low back pain 817664076 M54.5 Depressive disorder 3548 9007 F33.9 Essential hypertension 30714015 I10 Tobacco user 405022819 Z 72.0 Neuropathy 055973212 G62 .9 Type 2 melanie betes mellitus 13467811 E11.9 [id number] GEOVANNY Mcfarland (Adult Med) [address] [place] [address] 90972-525 0 12/08/2018 16:23:18 12/09/2018 09:59:16 Tobacco user 637773581 Z72.0 Acute pharyngitis 266859 003 J02.9 Type 2 melanie betes mellitus 91697419 E11.9 Vitamin D deficiency 347 13961 E55.9 Low back pain 939288884 M54.5 Depressive disorder 3548 9007 F33.9 Essential hypertension 60869550 I[address] of ethyl alcohol 60001328 T51.0X1A Neuropathy 233754449 G62 .9 [id number] GEOVANNY Mcfarland (Adult Med) [address] [place] [address] 55304-861 0 06/24/2019 11:41:43 06/25/2019 08:55:45 Low back pain 258895365 M54.5 Neuropathy 548176338 G62 .9 Bilateral knee pain 1187 276105 0129434 M25.561 Vitamin D deficiency 347 08099 E55.9 Essential hypertension 31601270 I10 Tobacco user 206678364 Z 72.0 Type 2 melanie betes mellitus 31549042 E11.9 [id number] GEOVANNY Mcfarland (Adult Med) [address] [place] [address] 85049-409 0 08/02/2019 16:36:35 08/02/2019 17:38:28 Type 2 diabetes mellitus 87827498 E11.9 Neuropathy 036340728 G62 .9 Administra tion of influenza vaccine 19511352 Z23 Low back pain 583846589 M54.5 Essential hypertension 58329838 I10 Pain in right knee 14609 69619 38781 M25.561 Degenerati on of lumbar intervertebral disc 25731517 M51.36 The insurance company denied the request for the CT scan of the LS spine as there is no documentat ion that she has failed PT Vitamin D deficiency 347 39001 E55.9 Depressive disorder 3548 9007 F33.9 [id number] GEOVANNY Mcfarland (Adult Med) [address] [place] [address] 34802-741 0 01/25/2020 09:40:23 01/25/2020 13:06:20 Chronic obstructive pulmonary disease 11540303 J44.9 Acute sinusitis 40314718 J01.90 Acute pharyngitis 616268 003 J02.9 Vitamin D deficiency 347 53162 E55.9 Rupture of medial collateral ligament of knee 703401766 M23.631 Pain in right knee 36532 11451 74775 M25.637 [id number] GEOVANNY Mcfarland (Adult Med) [address] [place] [address] 20152-132 0 02/23/2020 09:30:21 02/23/2020 10:45:53 Cirrhosis of liver 42519925 K74.60 [id number] GEOVANNY Mcfarland (Adult Med) [address] [place] [address] 33283-152 0 03/10/2020 08:02:18 03/10/2020 12:05:19 Cirrhosis of liver 47911184 K74.60 Insomnia 505924078 G47.0 0 Gastroesop hageal reflux disease 748708309 K21.0 Degenerati on of lumbar intervertebral disc 21771808 M51.36 The insurance company denied the request for the CT scan of the LS spine as there is no documentat ion that she has failed PT Essential hypertension 80919287 I10 Low back pain 464905601 M54.5 Neuropathy 836378343 G62 .9 Bilateral knee pain 1187 754671 5191397 M25.270 [id number] GEOVANNY Mcfarland (Adult Med) [address] [place] [address] 17410-578 0 04/25/2020 12:25:20 04/25/2020 14:19:22 Type 2 diabetes mellitus 09912732 E11.9 Depressive disorder 3548 9007 F33.9 Vitamin D deficiency 347 48899 E55.9 Cirrhosis of liver 007 K74.60 Gastroesop hageal reflux disease 160588446 K21.0 Low back pain 821438517 M54.5 Neuropathy 123047568 G62 .[address] of ethyl alcohol 53856712 T51.0X1A Serum vianey min B12 borderline low 752086881 R79.89 [id number] GEOVANNY Mcfarland (Adult Med) [address] [place] [address] 89045-316 0 08/15/2020 08:49:51 08/15/2020 14:40:13 Vitamin D deficiency 26935630 E55.9 Neuropathy 115278385 G62 .9 Cirrhosis of liver 007 K74.60 Chronic ob structive pulmonary disease 74105128 J44.9 Bilateral knee pain 1187 128776 7340326 M25.561 Degenerati on of lumbar intervertebral disc 00401296 M51.36 The insurance company denied the request for the CT scan of the LS spine as there is no documentat ion that she has failed PT Depressive disorder 3548 9007 F33.9 Essential hypertension 80074987 I10 Gastroesop hageal reflux disease 607278109 K21.00 Insomnia 971366777 G47.0 0 Low back pain 510273776 M54.5 Rupture of medial collateral ligament of knee 570212922 M23.631 Serum vianey min B12 borderline low 652243639 R79.89 Tobacco user 959809907 Z 72.0 Type 2 melanie betes mellitus 79999449 E11.9 [id number] GEOVANNY Mcfarland (Adult Med) [address] [place] [address] 61205-453 0 01/19/2021 17:13:33 01/23/2021 11:54:36 Chronic obstructive pulmonary disease 82943965 J44.9 Type 2 melanie betes mellitus 06108121 E11.9 Acute folliculitis 10534 7007 L73.9 Foot callus 531730920 L8 4 Vitamin D deficiency 347 44707 E55.9 Serum vianey min B12 borderline low 330777530 R79.89 Neuropathy 849438383 G62 .9 Low back pain 737709851 M54.5 Insomnia 339720846 G47.0 0 Essential hypertension 18894260 I10 Depressive disorder 3548 9007 F33.9 Degenerati on of lumbar intervertebral disc 92427784 M51.36 The insurance company denied the request for the CT scan of the LS spine as there is no documentat ion that she has failed PT Cirrhosis of liver 007 K74.60 [id number] GEOVANNY Mcfarland (Adult Med) [address] [place] [address] 93010-053 0 05/21/2021 11:05:06 05/21/2021 17:52:33 Chronic obstructive pulmonary disease 90066298 J44.9 Degenerati on of lumbar intervertebral disc 47267525 M51.36 The insurance company denied the request for the CT scan of the LS spine as there is no documentat ion that she has failed PT Essential hypertension 08633198 I10 Gastroesop hageal reflux disease 210067125 K21.00 Insomnia 358934910 G47.0 0 Neuropathy 364828292 G62 .9 Serum vianey min B12 borderline low 079954776 R79.89 Type 2 melanie betes mellitus 94516723 E11.9 Vitamin D deficiency 347 59635 E55.9 Rupture of medial collateral ligament of knee 074611060 M23.631 Pain in right knee 77723 18864 99155 M25.818 [id number] GEOVANNY Mcfarland (Adult Med) [address] [place] [address] 19171-839 0 07/20/2021 11:58:11 07/20/2021 14:29:36 Low back pain 849549495 M54.5 Vitamin D deficiency 347 35585 E55.9 Type 2 melanie betes mellitus 27868235 E11.9 Serum vianey min B12 borderline low 710233247 R79.89 Pruritic disorder 816589 002 L29.9 Tobacco user 565420114 Z 72.0 [id number] GEOVANNY Mcfarland (Adult Med) [address] [place] [address] 04770-476 0 02/06/2022 11:35:51 02/07/2022 14:16:21 Chronic obstructive pulmonary disease 72664470 J44.9 Type 2 melanie betes mellitus 15622948 E11.9 Serum vianey min B12 borderline low 833617579 R79.89 Vitamin D deficiency 347 31254 E55.9 Neuropathy 787210958 G62 .9 Insomnia 825072225 G47.0 0 Degenerati on of lumbar intervertebral disc 96839051 M51.36 The insurance company denied the request for the CT scan of the LS spine as there is no documentat ion that she has failed PT Essential hypertension 84443468 I10 Gastroesop hageal reflux disease 635946707 K21.00 Low back pain 840469224 M54.50 Rupture of medial collateral ligament of knee 978695200 M23.229 [id number] GEOVANNY Mcfarland (Adult Med) [address] [place] [address] 87161-646 0 05/10/2022 13:50:16 05/14/2022 08:23:35 Acute folliculitis 099290041 L73.9 Chronic ob structive pulmonary disease 04152145 J44.9 Cirrhosis of liver 29155 007 K74.60 Degenerati on of lumbar intervertebral disc 73403247 M51.36 The insurance company denied the request for the CT scan of the LS spine as there is no documentat ion that she has failed PT Essential hypertension 91294722 I10 Gastroesop hageal reflux disease 519175416 K21.00 Low back pain 325040851 M54.50 Neuropathy 367419824 G62 .9 Serum vianey min B12 borderline low 484707015 R79.89 Type 2 melanie betes mellitus 25302565 E11.9 Vitamin D deficiency 347 01409 E55.9 HIV screening 140582633 Z11.4 Administra tion of tetanus vaccine 263871496 Z23 [id number] GEOVANNY Mcfarland (Adult Med) [address] [place] [address] 07/12/2022 09:45:36 07/15/2022 14:17:41 Dysuria 17097289 R30.9 HIV screening 947590354 Z11.4 [id number] ANDREY GARCIA (Adult Med) [address] [place] [address] 07/22/2022 13:54:54 07/23/2022 10:12:09 Gynecologic examination 57835830 Z01.419 61 year old post-menop ausal female with a history of morbid obesity, T2DM, neuropathy , and mixed urinary incontinen ce establish OBGYN care. Daughter present today with patient. Last pap smear and mammogram was many years ago, no prior abnormal paps or imaging.We nt through menopause at age 53Complain ing of pelvic pain x 2 weeks, being tx for UTI by PCP currently- pap smear and nuswab completed in the office today Screening mammography 24 895924 Z12.31 Last pap smear and mammogram was many years ago, no prior abnormal paps or imaging.No family history of breast cancer and no breast symptoms todayCBE: mild tenderness to lateral aspect of bilateral breasts, nipples inverted bilaterall y - Gave patient mammogram order during visit today, she is aware she is supposed to call and schedule herself. Menopausal syndrome 1237 43425 N95.9 Went through menopause at age 53, has dealt with hot flashes intermitte ntly over the last 8 years and less severe vaginal dryness.Yan s history of urinary frequency, urgency, and stress incontinen ce for many years.- mild atrophy noted on exam today Acute urin ezekiel tract infection 300760179 N39.0 Has history of urinary frequency, urgency, and stress incontinen ce for many years. Developed lower pelvic pain 2 weeks ago, was started on bactrim for possible UTI by her PCP. Has been taking Bactrim once daily rather than twice daily, has not seen an improvemen t in her symptoms.- advised to take bactrim BID instead of QD, if pelvic pain does not improve after taking, f/u with PCP and or me- unable to retest urine today since still on antibiotic Mixed urin ezekiel incontinence 936274340 N39.46 Has history of urinary frequency, urgency, and stress incontinen ce for many years. Developed lower pelvic pain 2 weeks ago, was started on bactrim for possible UTI by her PCP. Has been taking Bactrim once daily rather than twice daily, has not seen an improvemen t in her symptoms.A dmits to mild vaginal irritation but no discharge, abnormal vaginal bleeding, vaginal lesions, dysuria or hematuria. - finish abx- incontinen ce less likely from UTI or vaginal infection since going on for years, likely multi-fact orial to her weight, hx of multiple pregnancie s, pelvic floor weakness, T2 DM, and vaginal atrophy- provided informatio n on incontinen ce, work on kegel exercises at home and bladder training, if no improvemen t, consider pelvic floor PT and /or urology referral Atrophic vaginitis 31492 000 N95.2 Menopause at age 53Hx of mixed urinary incontinen ce and intermitte nt vaginal irritation Has been treated for multiple UTIs over the last few yearsON PE: mild atrophy noted of the vulva and introitus- considered starting vaginal estrogen cream but due to liver cirrhosis probably best to avoid estrogen if possible. Going to try and have them slate picker Replens vaginal moisturize r first to see if this helps minimize irritation Health Concerns Section Related Observation LastModified by Organization Detai ls LastModified Time None Recorded Concern Status LastModified by Organization Details LastModified Time None Recorded Advance Directives Directive N: Payers Encounter Date Sequence Insurance Name Policy Number Policy Rowan Covered Member ID Rowan Member ID Guarantor Name 07/20/2021 2 [facility] (MEDICAID HMO) [id number] Lynn Armenta [id number] Lynn Armenta 02/06/2022 2 [facility] (MEDICAID HMO) [id number] Lynn Armenta [id number] Lynn Armenta 05/10/2022 1 [employer] (MEDICARE REPLACEMENT/A DVANTAGE - PPO) Lynn Keita [id number] Lynn Armenta 05/10/2022 2 [facility] (MEDICAID HMO) [id number] Lynn Geovany [id number] Lynn Wrenshall 07/12/2022 1 [employer] (MEDICARE REPLACEMENT/A DVANTAGE - PPO) Lynn Rodriguez O Hartline [id number] Lynn Geovany 07/12/2022 2 [facility] (MEDICAID HMO) [id number] Lynn Geovany [id number] Lynn Geovany 07/22/2022 1 [employer] (MEDICARE REPLACEMENT/A DVANTAGE - PPO) Lynn Rodriguez O Hartline [id number] Lynn Wrenshall 07/22/2022 2 [facility] (MEDICAID HMO) [id number] Lynn Wrenshall [id number] Lynn Geovany Notes Date Note Type Note Provider Name and Address Organization Details Recorded Time 07/20/2021 text/html stable . itshes at night all over , no rash Jordy Shaver PA-C Attn: Accounting[address] [facility], [place], [address], [facility] 07/21/2021 11:59:45 02/06/2022 text/html no changes Jordy Shaver PA-C Attn: Accounting[address] [facility], [place], [address], [facility] 02/12/2022 21:11:29 05/10/2022 text/html started out as a blood blister medial aspect left great toe , now discharge Jordy Shaver PA-C Attn: Accounting,[address] [facility], [place], [address], [facility] 05/14/2022 11:56:17 07/12/2022 text/html dysuria , no fev er, chills Jordy Shaver PA-C Attn: Accounting,[address] [facility], [place], [address], [facility] 07/16/2022 15:09:38 07/22/2022 text/html 61 year old post-menopausal female with a history of morbid obesity, COPD, Type 2 DM, and neuropathy presents today to establish OBGYN care. Daughter present today with patient. Last pap smear and mammogram was many years ago, no prior abnormal paps or imaging. Went through menopause at age 53, has dealt with hot flashes intermittently over the last 8 years and less severe vaginal dryness. Has history of urinary frequency, urgency, and stress incontinence for many years. Developed lower pelvic pain 2 weeks ago, was started on bactrim for possible UTI by her PCP. Has been taking Bactrim once daily rather than twice daily, has not seen an improvement in her symptoms. Admits to mild vaginal irritation but no discharge, abnormal vaginal bleeding, vaginal lesions, dysuria or hematuria. ANDREY GARCIA Attn: Accounting[address] [place], [address], [place] [facility] 07/22/2022 15:39:32 OBGyn Episode No OBEpisode recorded.
--- OUTSIDE RECORDS SUMMARY | 2024-12-12 04:40 | XMS_ITS | Encounter Summary ---
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 Gender Identity Female 03/10/2020 11:13 AM CDT Sexual Orientation Straight 03/10/2020 11 :13 AM CDT documented as of this encounter Plan of Treatment Upcoming Encounters Date Type Department Care Team (Late st Contact Info) Description 03/07/2025 11:00 AM CDT Hospital Encounter [facility] [address] [place] [address] Omega Dhaliwal MD [address] [place] [address] 03/07/2025 11:00 AM CDT - 03/07/2025 11:30 AM CDT Surgery [facility] [address] [place] [address] Omega Dhaliwal MD [address] [place] [address] COLONOSCOPY Scheduled Procedures Name Priority Associated Diagnoses Date/Ti me COLONOSCOPY History of colonic polyps Encounter for screening colonoscopy 03/07/2025 11:00 AM CDT COLONOSCOPY Alcoholic cirrhosis of liver without ascites (CMS/HCC) (HCC) documented as of this encounter Procedures Procedure Name Priority Date/Time Associated Diagnosis Comments SCAN - LABS 03/28/2020 documented in this encounter Results * SCAN - LABS (03/28/2020) us Provider Scanning Final Result documented in this encounter Visit Diagnoses Not on filedocumented in this encounter Care Teams Making Machine Catcher Relationship Specialty Start Date End Date Unknown, Notinfile PCP - General 02/08/20 10/21/22 Megha Orr MD PCP - General Family Practice 10/22/22 12/01/24 Fady Amaral MD [address] [place] [address] PCP - General Family Medicine 12/02/24 Mukund Roche MD [address] [facility] [address] [place] [address] Referring Physician Gastroenterology 12/02/24 documented as of this encounter
--- OUTSIDE RECORDS SUMMARY | 2024-12-12 04:40 | XMS_ITS | Encounter Summary ---
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 Gender Identity Female 03/10/2020 11:13 AM CDT Sexual Orientation Straight 03/10/2020 11 :13 AM CDT documented as of this encounter Plan of Treatment Upcoming Encounters Date Type Department Care Team (Late st Contact Info) Description 03/07/2025 11:00 AM CDT Hospital Encounter [facility] 1 [place] [address] Omega Dhaliwal MD [address] [place] [address] 03/07/2025 11:00 AM CDT - 03/07/2025 11:30 AM CDT Surgery [facility] 1 [place] [address] Omega Dhaliwal MD [address] [place] [address] COLONOSCOPY Scheduled Procedures Name Priority Associated Diagnoses Date/Ti me COLONOSCOPY History of colonic polyps Encounter for screening colonoscopy 03/07/2025 11:00 AM CDT COLONOSCOPY Alcoholic cirrhosis of liver without ascites (CMS/HCC) (HCC) documented as of this encounter Procedures Procedure Name Priority Date/Time Associated Diagnosis Comments SCAN - RADIOLOGY/IMAGING 05/31/2021 documented in this encounter Results * SCAN - RADIOLOGY/IMAGING (05/31/2021) Anatomical Region Laterality Modality Other us Provider Scanning Edited Result - Final documented in this encounter Visit Diagnoses Not on filedocumented in this encounter Care Teams Accounting Practice Manager Relationship Specialty Start Date End Date Unknown, Notinfile PCP - General 02/08/20 10/21/22 Megha Orr MD PCP - General Family Practice 10/22/22 12/01/24 Fady Amaral MD [address] [place] [address] PCP - General Family Medicine 12/02/24 Mukund Roche MD [address] [facility] [address] [place] [address] Referring Physician Gastroenterology 12/02/24 documented as of this encounter
--- OUTSIDE RECORDS SUMMARY | 2024-12-12 04:40 | XMS_ITS | Clinical Summary ---
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 Place 1 patch on the skin daily 28 patch 3 12/02/19 25 025 Active traZODone (DESYREL) 150 mg tabletIndications: Alcohol-induced insomnia (CMS/HCC) ([facility]) Take 1 tablet (150 mg total) by mouth nightly as needed for sleep 90 tablet 3 12/02/19 25 Active gabapentin (NEURONTIN) 300 mg capsule Take 1 capsule (300 mg total) by mouth 3 (three) times a day 270 capsule 12/02/19 25 Active losartan (COZAAR) 25 mg tabletIndications: Essential hypertension Take 1 tablet (25 mg total) by mouth daily 90 tablet 3 12/02/[address] (PROTONIX) 40 mg EC tabletIndications: Gastroesophageal reflux disease, unspecified whether esophagitis present Take 1 tablet (40 mg total) by mouth daily before breakfast 90 tablet 3 12/02/19 25 Active fluticasone propion-salmeteroL (WIXELA INHUB) 500-50 mcg/dose diskus inhaler Inhale 1 puff 2 (two) times a day Rinse mouth with water after use. Do not swallow. 60 each 3 12/02/19 25 Active cholecalciferol (VITAMIN D-3) 5,000 unit tabletIndications: Vitamin D Deficiency Take 1 tablet (5,000 Units total) by mouth daily 90 tablet 3 12/03/19 25 Active metFORMIN XR (GLUCOPHAGE XR) 500 mg 24 hr tabletIndications: Type 2 diabetes mellitus with hyperglycemia, without long-term current use of insulin ([facility]) Take 1 tablet (500 mg total) by mouth daily with breakfast for 30 days, THEN 2 tablets (1,000 mg total) daily with breakfast. 210 tablet 12/03/19 25 025 Active rosuvastatin (CRESTOR) 10 mg tabletIndications: Dyslipidemia associated with type 2 diabetes mellitus (HCC) Take 1 tablet (10 mg total) by mouth nightly 90 tablet 3 12/03/[address] (PROTONIX) 40 mg EC tabletIndications: Gastroesophageal reflux disease, unspecified whether esophagitis present Take 1 tablet (40 mg total) by mouth daily before breakfast 90 tablet 1 09/12/20 23 025 Discontin ued(Reord er) fluticasone propion-salmeteroL (WIXELA INHUB) 500-50 mcg/dose diskus inhaler Inhale 1 puff 2 (two) times a day Rinse mouth with water after use. Do not swallow. 3 each 1 09/12/20 23 025 Discontin ued(Reord er) oxyBUTYnin XL (DITROPAN-XL) 5 mg 24 hr tabletIndications: Mixed stress and urge urinary incontinence Take 1 tablet (5 mg total) by mouth daily 90 tablet 1 05/06/20 24 025 Discontin ued(Thera py completed ) losartan (COZAAR) 25 mg tabletIndications: Essential hypertension Take 1 tablet (25 mg total) by mouth daily 90 tablet 1 05/06/20 24 025 Discontin ued(Reord er) traZODone (DESYREL) 100 mg tabletIndications: Primary insomnia Take 1 tablet (100 mg total) by mouth nightly as needed for sleep 90 tablet 4 05/06/20 24 025 Discontin ued(Thera py completed ) gabapentin (NEURONTIN) 300 mg capsule TAKE 1 CAPSULE BY MOUTH THREE TIMES DAILY 270 capsule 1 05/24/20 24 025 Discontin ued(Reord er) ergocalciferol (VITAMIN D) 50,000 unit capsule Take 1 capsule (50,000 Units total) by mouth once a week 12 capsule 4 05/25/20 24 025 Discontin ued(Thera py completed ) Active Problems Problem Noted Date Diagnosed Date Dyslipidemia associated with type 2 diabetes suzanne eloisaus 12/03/2024 Assessment & Plan (12/03/2024 5:32 AM FILLING SEPARATOR): - chronic, uncontrolled - has known T2DM - LDL >100, start Rosuvastatin 10 mg nightly, script sent in Lab Results Component Value Date CHOL 197 12/02/2024 CHOL 170 05/20/2024 CHOL 182 10/22/2022 Lab Results Component Value Date HDL 42 12/02/2024 HDL 48 05/20/2024 HDL 56 10/22/2022 Lab Results Component Value Date LDLCALC 133 (H) 12/02/2024 LDLCALC 107 05/20/2024 LDLCALC 114 10/22/2022 Lab Results Component Value Date TRIG 121 12/02/2024 TRIG 73 05/20/2024 TRIG 58 10/22/2022 Type 2 diabetes mellitus wit h hyperglycemia, without long-term current use of insulin 12/02/2024 Assessment & Plan (12/03/2024 5:31 AM FILLING SEPARATOR): - chronic condition, worse - used to be on Metformin in past, interested in getting back on it - recheck labs, has noticed at times elevated blood glucose readings - restart Metformin XR 500 mg daily and taper up to 1000 mg daily, script sent in - LDL >100, start Rosuvastatin 10 mg nightly, script sent in Lab Results Component Value Date HGBA1C 6.6 05/06/2024 HGBA1C 6.4 04/30/2023 HGBA1C 6.7 (H) 10/22/2022 Lab Results Component Value Date LDLCALC 107 05/20/2024 CREATININE 0.74 05/20/2024 Pruritic condition 12/02/2024 Overview (12/08/2024): 11/2024 - minimally elevated bile acids noted Assessment & Plan (12/02/2024 2:41 PM FILLING SEPARATOR): - new diagnosis, reports pruritus - check bile acids given her known liver cirrhosis, order placed Preventative health care 12/02/2024 Assessment & Plan (12/03/2024 5:28 AM FILLING SEPARATOR): - New or chronic worsening conditions: Insomnia, Pruritus, GERD, COPD, Tobacco use disorder, T2DM, vitamin D deficiency - Mental health: stable, hx of depression, anxiety, some grief from loss of sister - Dental health: Recommend regular dental care and cleaning. Discussed importance of regular tooth brushing, flossing, and dental visits. - Nutrition: Recommend moderation in sodium/caffeine intake, saturated fat and cholesterol, caloric balance, sufficient intake of fresh fruits, vegetables - Exercise: Recommend to exercise at least 30 minutes moderate to vigorous exercise most days of the week. (minimum 150 minutes weekly) - Immunizations: Age and sex appropriate immunizations reviewed and offered - Cervical Cancer screening: Recommended - Breast Cancer screening: Recommended - Colon cancer screening: Recommended - Lung cancer screening: Recommended - Bone desnity/osteoporosis screening:not indicated - control: not applicable History of colonic polyps 12/02/2024 Encounter for screening colonoscopy 12/02/2024 Class 2 severe obesity due t o excess calories with serious comorbidity and body mass index (BMI) of 35.0 to 35.9 in adult 05/06/2024 Assessment & Plan (12/02/2024 1:58 PM FILLING SEPARATOR): Wt Readings from Last 3 Encounters: 12/02/24 108.4 kg (238 lb 14.4 oz) 07/22/24 105.1 kg (231 lb 9.6 oz) 05/06/24 104.8 kg (231 lb) Body mass index is 36.32 kg/m . - chronic condition, not at goal, worse, some weight gain noted - BMI Follow-up includes: nutrition counseling, exercise counseling and education provided - Recommend to exercise at least 30 minutes moderate to vigorous exercise most days of the week. (minimum 150 minutes weekly) Assessment & Plan (05/06/2024 6:46 PM CDT): Chronic. Suboptimally controlled but stable. Encouraged healthy diet and lifestyle History of colon polyps 07/16/2023 Assessment & Plan (12/02/2024 2:37 PM FILLING SEPARATOR): - hx of colon polyp - had incomplete prep on colonosocpy on 08/2023, told to repeat in 1 years - new referral placed to GI for repeat colonoscopy Neuropathy 10/22/2022 Overview (12/02/2024): Recommend podiatry follow up /monitoring regularly Assessment & Plan (12/03/2024 5:26 AM FILLING SEPARATOR): - chronic condition, persistent/controlled - hx of alcohol heavy use in past - hx of diabetes - has pain and numbness in bilateral lower legs - Patient has dense neuropathy in her feet which put out much increased risk for diabetic ulceration. Close monitoring her feet as needed. - Recommend podiatry follow up /monitoring regularly Lab Results Component Value Date VITB12 670 12/02/2024 Lab Results Component Value Date FOLATE 6.4 12/02/2024 Lab Results Component Value Date HGBA1C 8.3 (H) 12/02/2024 No results found for: SCRA1C Assessment & Plan (05/06/2024 6:46 PM CDT): Chronic. Diabetes is controlled. Patient has self stopped the metformin as she ran out and never restarted. Given diabetes control is okay we will monitor off of the metformin. Encouraged yearly diabetic eye exam. Diabetic foot exam done today. Patient has dense neuropathy in her feet which put out much increased risk for diabetic ulceration. Close monitoring her feet as needed. She does have some calluses but nothing that appears to stage that it is starting to ulcerate. They will monitor the great toe callus on the left foot closely and if it worsens at all they will get back in with the gas generator operator. Continue use of diabetic shoes and insoles. We will order the rest of her diabetic test with her labs today Recurrent major depressive disorder, in partial remission 10/22/2022 Assessment & Plan (05/06/2024 6:47 PM CDT): Chronic. Patient self stopped her antidepressant. She reports her mood is doing okay off medication. We will monitor closely. If mood flares that she may need to get back in with her psychiatrist History of alcohol abuse 10/22/2022 Assessment & Plan (12/03/2024 5:28 AM FILLING SEPARATOR): Chronic. Patient remains sober since 2019 when she was diagnosed with liver cirrhosis Continue to abstain from alcohol Lab Results Component Value Date VITB12 670 12/02/2024 Lab Results Component Value Date FOLATE 6.4 12/02/2024 Lab Results Component Value Date ALT 21 12/02/2024 AST 30 12/02/2024 ALKPHOS 156 (H) 12/02/2024 BILITOT 0.5 12/02/2024 Assessment & Plan (05/06/2024 6:48 PM CDT): Chronic. Patient remains sober. Continue to abstain from alcohol Mixed stress and urge urinary incontinence 07/22 Assessment & Plan (05/06/2024 6:46 PM CDT): Chronic. Struggles with urinary incontinence as well as urinary frequency and urgency. Urinalysis in office today not consistent with UTI. I suspect her urinary symptoms are more of an issue with overactive bladder. Discussed trial of oxybutynin. Ordered. If does not tolerate oxybutynin we could always see if insurance will cover Myrbetriq. Monitor Alcoholic cirrhosis of liver without ascites ([facility] S/HCC) 11/02/2020 Overview (12/02/2024): Follows with GI Assessment & Plan (12/03/2024 5:27 AM FILLING SEPARATOR): - chronic condition, stable - no hx of ascites - Monitor liver enzymes, platelet, PT INR. - secondary to alcohol use, has abstained from alcohol in 2019 - hx of heavy alcohol use with hard liquor for about 10 years prior to that - diagnosed about 2019 - follows with GI, annually, missed her last visit with GI - past due for Liver US, last US liver was in 2022 - Her EGD is up-to-date. Next will be due in either 2024 or 2025. She did not have any esophageal varices on her last EGD -plans to set up follow up appointment - currently on Lactulose 1-2 times a day - recommend regular follow up with GI Lab Results Component Value Date INR 1.08 05/20/2024 INR 1.1 10/22/2022 INR 1.2 11/02/2020 Lab Results Component Value Date WBC 9.6 12/02/2024 HGB 16.0 (H) 12/02/2024 HCT 49.8 (H) 12/02/2024 MCV 96.5 (H) 12/02/2024 LABPLAT 189 12/02/2024 Lab Results Component Value Date ALT 21 12/02/2024 AST 30 12/02/2024 ALKPHOS 156 (H) 12/02/2024 BILITOT 0.5 12/02/2024 Assessment & Plan (05/06/2024 6:45 PM CDT): Chronic. Stable. Remains alcohol free. Monitor liver enzymes, platelet, PT INR. She was sees liver specialist yearly. Continue to abstain from alcohol. Continue lactulose Alcohol-induced insomnia (CMS/HCC) 03/10/2020 Assessment & Plan (12/02/2024 2:12 PM FILLING SEPARATOR): - Chronic. Not at goal - used to see psychiatry for depression, anxiety and insomnia - currently on Trazodone 100 mg daily --> return back to 150 mg daily - continue to be abstain from alcohol use Assessment & Plan (05/06/2024 6:45 PM CDT): Chronic. Struggling. Patient had self DC her trazodone 150 mg nightly from her psychiatrist. We will go ahead and restart but at the lower dose of 50 mg nightly. Gastroesophageal reflux disease 02/29/2020 Assessment & Plan (12/02/2024 2:40 PM FILLING SEPARATOR): - chronic condition, not at ogal - currently on Pantoprazole 40 mg daily but taking it PRN only --> recommend daily use of medication - Continue given patient is at increased risk for developing esophageal varices and has a component of thrombocytopenia. Her EGD is up-to-date. Next will be due in either 2024 or 2025. She did not have any esophageal varices on her last EGD - minimize caffeinated drinks Assessment & Plan (05/06/2024 6:48 PM CDT): Chronic. Symptoms controlled with pantoprazole. Continue given patient is at increased risk for developing esophageal varices and has a component of thrombocytopenia. Her EGD is up-to-date. Next will be due in either 2024 or 2025. She did not have any esophageal varices on her last EGD Assessment & Plan (02/29/2020 8:15 PM CDT): Start PO PPI given history of dark stools Chronic obstructive lung disease 01/25/2020 Assessment & Plan (12/02/2024 2:33 PM FILLING SEPARATOR): - chronic condition, not at goal - active daily tobacco smoker, discussed importance of tobacco smoking cessation - on albuterol rescue inhaler and wixela controller agent --> not using controller agent daily --> discussed to use controlled agent daily and albuterol inhaler PRN only Assessment & Plan (05/06/2024 6:47 PM CDT): Chronic. Breathing is stable. Continue Wixela. Patient is counseled to stop smoking Assessment & Plan (03/03/2020 4:50 AM CDT): History of smoking. No PFTs available. - ctn albuterol PRN. Assessment & Plan (03/02/2020 2:45 PM CDT): Chart history & long standing history of tobacco use but no prior PFTs in [facility] system. Currently without wheezing -Continue PRN albuterol Assessment & Plan (03/01/2020 1:51 PM CDT): Chart history & long standing history of tobacco use but no prior PFTs in [facility] system. Currently without wheezing -Continue PRN albuterol Assessment & Plan (02/29/2020 9:09 PM CDT): Chart history & long standing history of tobacco use but no prior PFTs in [facility] system. Currently without wheezing -Continue PRN albuterol -Will need outpatient PFTs in the future Vitamin D deficiency 06/10/2018 Assessment & Plan (12/03/2024 5:27 AM FILLING SEPARATOR): - chronic condition, not at goal - hx of vitamin D deficiency, recheck labs, order placed - has completed high dose weekly vitamin D - recheck labs, results updated below - currently on daily OTC vitamin D supplementation, unknown dose but reports inconsistent intake --> recommend consistent intake of 5000 International units of vitamin D3 daily Lab Results Component Value Date 25HYDROVITD 29 (L) 12/02/2024 25HYDROVITD 22 (L) 05/20/2024 25HYDROVITD 24 (L) 10/22/2022 25HYDROVITD 32 03/02/2020 Assessment & Plan (05/06/2024 6:44 PM CDT): Chronic. Check and adjust replacement as needed Assessment & Plan (02/29/2020 8:20 PM CDT): Continue home weekly Ergocalciferol -Vitamin D level pending Essential hypertension 03/02/2018 Assessment & Plan (12/02/2024 1:59 PM FILLING SEPARATOR): Blood Pressure Management BP Readings from Last 3 Encounters: 12/02/24 126/80 07/22/24 118/70 05/06/24 142/83 Chronic condition Status - is adequately controlled. Current medications are: Losartan 25 mg daily Patient is compliant with medications. Patient denies any side effects or adverse side effects from the medication/s. Follow a low salt diet Monitor blood pressure regularly at home Continue current management unless change made above The 10-year ASCVD risk score (Elton REESE, et al., 2019) is: 18.6% Values used to calculate the score: Age: 64 years Sex: Female Is Non- : No Diabetic: Yes Tobacco smoker: Yes Systolic Blood Pressure: 126 mmHg Is BP treated: Yes HDL Cholesterol: 48 mg/dL Total Cholesterol: 170 mg/dL Lab Results Component Value Date LDLCALC 107 05/20/2024 Lab Results Component Value Date GLUCOSE 153 05/20/2024 CALCIUM 9.4 05/20/2024 SODIUM 143 05/20/2024 POTASSIUM 4.5 05/20/2024 CO2 25 05/20/2024 CHLORIDE 105 05/20/2024 BUNSER 8 05/20/2024 CREATININE 0.74 05/20/2024 Assessment & Plan (05/06/2024 6:44 PM CDT): Chronic. Uncontrolled. Offer her losartan. Given it is only mildly high we will restart losartan but at a lower dose of 25 mg daily. Encouraged healthy diet and lifestyle Assessment & Plan (03/03/2020 5:41 AM CDT): Hold home losartan ISO decompensated cirrhosis. Assessment & Plan (03/02/2020 2:47 PM CDT): Hold Losartan Assessment & Plan (03/01/2020 1:54 PM CDT): Hold Losartan Assessment & Plan (02/29/2020 8:14 PM CDT): Home losartan 50 mg qday on hold given softer BP on arrival and slight Cr rise (up to 0.8 from baseline 0.4) -HCTZ was discontinued during previous admission -CTM and can restart losartan as tolerated Personal history of tobacco use 03/02/2018 Assessment & Plan (12/02/2024 2:01 PM FILLING SEPARATOR): Social History Tobacco Use Smoking Status Every Day Current packs/day: 1.00 Average packs/day: 1 pack/day for 44.1 years (44.1 ttl pk-yrs) Types: Cigarettes, Vaping Start date: 10/1980 Smokeless Tobacco Current - chronic condition, not at goal --> smoking about 1pk/day - assessed patient readiness for tobacco smoking cessation - discussed the importance of tobacco smoking cessation with goal of being tobacco free - wants to quit smoking, requesting assistance, will provide her nicotine patches Assessment & Plan (05/06/2024 6:48 PM CDT): Chronic. Needs to quit. Counseled Resolved Problems Problem Noted Date Diagnosed Date Resolved Date Platelets decreased 05/06/2024 12/02/19 25 Assessment & Plan (05/06/2024 6:54 PM CDT): Due to alcohol associated liver disease/liver cirrhosis. Monitor platelet count with labs as ordered Encounter for screening colonoscopy 07/16/2023 05/06/2024 Alcohol-induced thrombocytopenia 04/30/2023 12/02/2024 Assessment & Plan (05/06/2024 6:47 PM CDT): Chronic. Control uncertain. Check labs. Continue to abstain from alcohol. Bleeding precautions recommended. Osteoarthritis of multiple joints 12/13/2020 12/03/2024 Overview (10/22/2022): Last Assessment & Plan: Condition: stable Advised to take pain medication as directed. Discussed nonpharmacological pain relief methods. Follow up in: three months Encephalopathy 03/03/2020 04/30/2023 Assessment & Plan (03/06/2020 7:42 AM CDT): DDx hepatic vs septic vs toxic (amphetamines). Baseline unknown. Ammonia 50. BCx NGTD. Will monitor for improvement w/ treatment of HE and Abx for empiric SBP. Unlikely to be amphetamines as patient is on Wellbutrin and Prozac at home which both can cause false positive amphetamine UDS. Now seems to be near her baseline mental status A&O x4 with some residual mild confusion. -Rifaximin -Reduce lactulose 20 mg to TID for excessive BMs, target 3-5 BMs per day Alcoholic hepatitis 02/29/2020 10/22/20 22 Assessment & Plan (03/05/2020 8:49 AM CDT): Pt reported last drink ~5/3 to [facility] but denies drinking on admission to Covid unit. -Continue thiamine and MVI supplementation -continue care per Hepatology, Bili downtrending which is reassuring -MELDNa 23 this AM Assessment & Plan (03/02/2020 2:45 PM CDT): Long standing history and recently stopped in the middle of January after noticing jaundice. Patient denies alcohol use prior to admission. Would like to verify history with family. -Continue thiamine and MVI supplementation Assessment & Plan (03/01/2020 1:51 PM CDT): Long standing history and recently stopped in the middle of January after noticing jaundice -Denies any use since her last admission -Continue thiamine and MVI supplementation -Monitor off protocol for withdrawal. Contact family to confirm she has not been drinking Assessment & Plan (02/29/2020 9:21 PM CDT): Long standing history and recently stopped in the middle of January after noticing jaundice -Denies any use since her last admission -S/p thiamine, folic acid and MVI during last admission -Holding off on CIWA protocol for now, will order if any signs of withdrawal Alcoholic hepatitis 02/29/2020 10/22/20 22 Decompensated hepatic cirrhosis (CMS/HCC) 02/29/2020 10/22/2022 Assessment & Plan (03/04/2020 8:36 AM CDT): Alcohol-induced. MELD 23. Not given steroids given suspected infection. HE: Currently AAOx2. On rifaximin/lactulose. SBP: No safe pocket this admit. Empiric CTX. EGD: 03/03 with PHG and no evidence of bleeding HCC: unknown. Assessment & Plan (03/02/2020 2:47 PM CDT): Presenting with confusion, mild abdominal pain and possible dark stools concerning for decompensated cirrhosis. She was recently admitted from 02/06-02/09 with new onset jaundice and was found to have alcoholic cirrhosis with total bilirubin ~23 at that time. Liver was consulted and remainder of her work-up (Hep panel/HIV and autoimmune) was negative. Liver US at that time with hepatic steatosis and TTE normal -Since discharge she reports alcohol cessation and denies any drug use history (UDS was positive for amphetamines, confirmatory pending-psych meds sometimes cause false + in UDS) -CT abdomen/pelvis with cirrhosis, moderate ascites and portal colopathy -bedside ultrasound with some ascites but inadequate for bedside para on admission -Will continue lactulose and rifaximin for hepatic encephalopathy, continue CTX -Liver following Assessment & Plan (03/01/2020 1:54 PM CDT): Presenting with confusion, mild abdominal pain and possible dark stools concerning for decompensated cirrhosis. She was recently admitted from 02/06-02/09 with new onset jaundice and was found to have alcoholic cirrhosis with total bilirubin ~23 at that time. Liver was consulted and remainder of her work-up (Hep panel/HIV and autoimmune) was negative. Liver US at that time with hepatic steatosis and TTE normal -Since discharge she reports alcohol cessation and denies any drug use history (UDS was positive for amphetamines, confirmatory pending-psych meds sometimes cause false + in UDS) -CT abdomen/pelvis with cirrhosis, moderate ascites and portal colopathy -ER attempted diagnostic paracentesis but could not find tappable fluid pocket, will repeat bedside ultrasound today -Will start lactulose and rifaximin for hepatic encephalopathy, continue CTX -Anticipate Liver consult Assessment & Plan (02/29/2020 9:19 PM CDT): Presenting with confusion, mild abdominal pain and possible dark stools concerning for decompensated cirrhosis. She was recently admitted from 02/06-02/09 with new onset jaundice and was found to have alcoholic cirrhosis with total bilirubin ~23 at that time. Liver was consulted and remainder of her work-up (Hep panel/HIV and autoimmune) was negative. Liver US at that time with hepatic steatosis and TTE normal -Since discharge she reports alcohol cessation and denies any drug use history (UDS was positive for amphetamines, confirmatory pending) -On exam she is noticeable jaundice, only oriented to person & hospital (did not get hospital name correct), mild abdominal tenderness -CT abdomen/pelvis with cirrhosis, moderate ascites and portal colopathy -LFTs with total bilirubin up to 27.7, remainder of LFTs hemolyzed. Will repeat LFTs but may be hemolyzed due to high bilirubin -MELD score pending coags -Ammonia 50, ethanol <10 and UDS with amphetamines -ER attempted diagnostic paracentesis but could not find tappable fluid pocket -Will start lactulose and rifaximin for hepatic encephalopathy -S/p 1 dose of CTX in ED and will continue for possible SBP -Strict I&Os -Liver consult in AM Leukocytosis 02/29/2020 10/22/2022 Assessment & Plan (03/03/2020 6:54 AM CDT): DDx: SBP vs CAP vs alcoholic hepatitis. CXR showing streaky streaky bibasilar opacities that favor atelectasis over aspiration PNA. No safe pocket for para. Covid neg x2. - MDR 42 and steroids deferred d/t suspected infection - CTX 2gm q24h (02/28-) for empiric SBP (anticipate 7d course) - WBC 22 -> 13 Assessment & Plan (03/02/2020 2:52 PM CDT): WBC elevated to 21.7 on admission, up from 8.8 on 02/08. -She is endorsing abdominal pain, confusion. No new dyspnea/cough, chills, COVID exposures -CXR with linear streaky bibasilar opacities (L>R) concerning for atelectasis/aspiration but cannot rule out atypical vs viral PNA -blood cultures no growth, unable to obtain ascites sample. UA suspicious for UTI but no reflex ordered to culture from original sample. Culture sample obtained after abx and is now growth. -Continue empiric CTX for SBP v. UTI -COVID swab negative x2. Clinical suspicion for COVID is low. Patient to be removed from precautions. Assessment & Plan (03/01/2020 1:56 PM CDT): WBC elevated to 21.7 on admission, up from 8.8 on 02/08 -She is endorsing abdominal pain, confusion, & chronic SOB/cough -CXR with linear streaky bibasilar opacities (L>R) concerning for atelectasis/aspiration but cannot rule out atypical vs viral PNA -f/u Ucx and blood cultures. Dx para if accessible ascites. Continue empiric SBP -COVID swab negative, repeat swab recommended by IP. Contact/droplet isolation precautions Assessment & Plan (02/29/2020 9:22 PM CDT): WBC elevated to 21.7 on admission, up from 8.8 on 02/08 -She is endorsing abdominal pain, confusion, & chronic SOB/cough -Overall concerning for SBP vs vital etiology -CXR with linear streaky bibasilar opacities (L>R) concerning for atelectasis/aspiration but cannot rule out atypical vs viral PNA -UA dirty -COVID swab pending given confusion, CXR findings, and elevated WBC. Contact/droplet isolation precautions placed -CT abdomen/pelvis with moderate ascites, but per ED report no tappable fluid pocket for diagnostic paracentesis -Blood cx pending -Given one dose of CTX in ED and will continue q24 for possible SBP for now Hyponatremia 02/29/2020 03/05/2020 Assessment & Plan (03/02/2020 2:49 PM CDT): Resolved with albumin Assessment & Plan (03/01/2020 1:55 PM CDT): Na 132 on admission, mild. suspect secondary to hypervolemic hyponatremia -Urine Na and serum/urine osmolality pending -Monitor BMP Assessment & Plan (02/29/2020 8:23 PM CDT): Na 132 on admission, suspect secondary to hypervolemic hyponatremia -Urine Na and serum/urine osmolality pending -S/p 1 L LR in ED, will repeat BMP on the floor Dark stools 02/29/2020 10/22/2022 Assessment & Plan (03/05/2020 8:50 AM CDT): Pt not a reliable historian but charted here as having two dark brown stools. Hgb downtrending from admission; unclear if this is d/t hemodilution or ongoing bleed. - PPI BID - on CTX 02/28- - trend Hgb, transfuse for <7 - GI following; appreciate recs: EGD 03/03 w/ portal hypertensive gastropathy. No need for B remi. Assessment & Plan (03/02/2020 2:46 PM CDT): Vague history of dark stools but denies any overt blood. Also states she has a BM every 2-3 days and usually has issues with constipation. Since starting Lactulose has had 2 BMs that were dark brown. Subsequent stools light brown per RN -recheck CBC -PPI BID Assessment & Plan (03/01/2020 1:52 PM CDT): Vague history of dark stools but denies any overt blood. Also states she has a BM every 2-3 days and usually has issues with constipation. Since starting Lactulose has had 2 BMs that were dark brown. -Hgb stable currently -PPI Assessment & Plan (02/29/2020 9:10 PM CDT): Vague history of dark stools but denies any overt blood. Also states she has a BM every 2-3 days and usually has issues with constipation -Hgb 12.0 on admission and will monitor -Stool guaiac with BM -Will start PPI BID in the meantime Tear of medial collateral ligament of knee 08/09/2019 05/06/2024 Degeneration of lumbar intervertebral disc 08/29/2018 12/02/2024 Depressive disorder 04/13/2018 10/22/20 Assessment & Plan (03/03/2020 5:41 AM CDT): - ctn home regimen Assessment & Plan (03/02/2020 2:47 PM CDT): -Continue home fluoxetine 40 mg qday, bupropion XL 300 mg qday, and trazodone 100 mg qhs Assessment & Plan (03/01/2020 1:54 PM CDT): Mood is stable, no SI/HI -Continue home fluoxetine 40 mg qday, bupropion XL 300 mg qday, and trazodone 100 mg qhs Assessment & Plan (02/29/2020 8:13 PM CDT): Mood is stable, no SI/HI -Continue home fluoxetine 40 mg qday, bupropion XL 300 mg qday, and trazodone 100 mg qhs Type 2 diabetes mellitus wit h foot ulcer, without long-term current use of insulin 03/02/2018 05/06/2024 Assessment & Plan (02/29/2020 8:22 PM CDT): Prior history but most recent Hgb A1c (02/07) returned at <4.2% so her metformin was discontinued during last admission -Can consider adding on accuchecks and sliding scale insulin if BG elevated on BMP Alcoholic peripheral neuropathy 03/02/2018 12/03/2024 Overview (10/22/2022): Last Assessment & Plan: Condition: stable Advised to take pain medication as directed. Discussed nonpharmacological pain relief methods. Follow up in: three months Assessment & Plan (05/06/2024 6:45 PM CDT): Chronic. Stable. Continue gabapentin Hyperlipidemia 09/08/2017 12/02/2024 Assessment & Plan (05/06/2024 6:44 PM CDT): Chronic. Control uncertain. Check cholesterol level. We have previously deferred cholesterol medication given patient's known alcoholic liver cirrhosis and concerns about risk of liver injury with cholesterol medication Encounters Date Type Department Care Team Description 12/03/2024 Telephone [facility] Primary Care at [address] [place] [address] Fady Amaral MD 12/02/2024 2:45 PM FILLING SEPARATOR Lab [facility] Outpatient Lab at [address] [id number] Vitamin D deficiency (Primary Dx) 12/02/2024 2:35 PM FILLING SEPARATOR - 12/02/2024 11:59 PM FILLING SEPARATOR Hospital Encounter [address] [address] History of alcohol abuse; Alcoholic cirrhosis of liver without ascites (CMS/HCC) (HCC); Pruritic condition; Vitamin D deficiency; Hyperlipidemia, unspecified hyperlipidemia type; Class 2 severe obesity due to excess calories with serious comorbidity and body mass index (BMI) of 35.0 to 35.9 in adult (HCC); Pre-diabetes; Essential hypertension; Need for hepatitis B screening test Discharge Disposition: Discharge to home or self care 12/02/2024 1:45 PM FILLING SEPARATOR Office Visit [facility] Primary Care at [address] [phone] Fady Amaral MD Preventative health care (Primary Dx); Essential hypertension; Class 2 severe obesity due to excess calories with serious comorbidity and body mass index (BMI) of 35.0 to 35.9 in adult (HCC); Gastroesophageal reflux disease without esophagitis; Hyperlipidemia, unspecified hyperlipidemia type; Tobacco use disorder, continuous; Vitamin D deficiency; Pulmonary emphysema, unspecified emphysema type (HCC); Alcoholic cirrhosis of liver without ascites (CMS/HCC) (HCC); History of alcohol abuse; Alcohol-induced insomnia (CMS/HCC) (HCC); Gastroesophageal reflux disease, unspecified whether esophagitis present; Encounter for screening mammogram for malignant neoplasm of breast; History of colon polyps; Need for hepatitis B screening test; Pruritic condition; Neuropathy (CMS/HCC); Personal history of tobacco use; Type 2 diabetes mellitus with hyperglycemia, without long-term current use of insulin (HCC); Dyslipidemia associated with type 2 diabetes mellitus (HCC) 12/02/2024 Telephone [facility] Gastroenterology at [address] [place] [phone] Omega Dhaliwal MD 11/12/2024 Telephone [facility] at [address] [phone] Jaycee Hopper PA from Last 3 Months Immunizations Immunization Administration Dates Next Due Influenza, Quadrivalent, Judith l Culture-based MDCK, Preservative Free, Antibiotic Free, Intramuscular 08/18/2023,11/08/2021 Influenza, Quadrivalent, Spl it, Intramuscular 08/02/2019,10/11/2016 Influenza, Quadrivalent, Spl it, Preservative Free, Intramuscular 08/19/2022,08/26/2018,09/04/2017 Influenza, Trivalent, IM (MDV) 08/01/2015 Influenza, Trivalent, Preser vative Free, Intramuscular 12/02/2024 Moderna SARS-CoV-2 Monovalen t Vaccination (12+ YRS) 04/11/2021,03/12/2021 Pneumococcal Polysaccharide PPV23 10/11/2016 Tdap 05/10/2022 ZOSTER Recombinant 08/19/2022 Surgical History Surgery Date Site/Laterality Comments SECTION 2 UPPER GASTROINTESTINAL ENDOSCOPY Medical History Medical History Date Comments Liver failure (CMS/HCC) (HCC) al cholic cirrhosis Diabetes mellitus (HCC) Hypertension Hyperlipidemia Hyponatremia 02/29/2020 GERD (gastroesophageal reflux disease) Alcohol abuse Anxiety Arthritis Depression Type 2 diabetes mellitus (HCC) COPD (chronic obstructive pulmonary disease) (HC C) Tear of medial collateral ligament of knee 08/09 Family History Medical History Relation Name Comments Diabetes Father Laweramecca Meyer Hypertension Father Lawerancijeoma Meyer Diabetes Mother Niki MEYER Hypertension Mother Niki MEYER Liver disease Other Relation Name Status Comments Father eramecca Meyer Mother Niki MEYER Other Social History Tobacco Use Types Packs/Day Years Used Date Smoking Tobacco: Every Day Cigarettes 1 44.1 Started: 10/1980 Vaping Smokeless Tobacco: Current Tobacco Cessation:Ready to Q uit: Not Asked; Counseling Given: Not Answered Alcohol Use Standard Drinks/Week Comments Yes 0 (1 standard drink = 0.6 oz pure alcohol) 1/2 bottle of whiskey/day for 10 years AUDIT-C Answer Date Recorded Q1: How often do you have a drink containing alcohol? Never 05/06/2024 Q2: How many drinks containi ng alcohol do you have on a typical day when you are drinking? Patient does not drink Q3: How often do you have si x or more drinks on one occasion? Never 05/06/2024 PHQ-2 Answer Date Recorded PHQ-2 Total Score (If total score is 3 or more points, staff should administer the PHQ-9) 0 12/02/2024 Personal Safety Answer Date Recorded Have you ever been in or are you currently in a harmful physical or emotional relationship or is someone making you feel afraid or unsafe? Denies 09/22/2023 Comments No Sex and Gender Information Value Date Recorded Sex Assigned at Not on file Legal Sex Female 9:26 PM FILLING SEPARATOR Gender Identity Female 03/10/2020 11:13 AM CDT Sexual Orientation Straight 03/10/2020 11 :13 AM CDT Obstetrics History Last Filed Vital Signs Vital Sign Reading Time Taken Comments Blood Pressure 126/80 12/02/2024 1:42 PM FILLING SEPARATOR Pulse 78 12/02/2024 1:42 PM FILLING SEPARATOR Temperature 36.7 C (98.1 F) 12/02/2024 1:42 PM FILLING SEPARATOR Respiratory Rate 16 05/06/2024 4:06 PM CDT Oxygen Saturation 98% 12/02/2024 1:42 PM FILLING SEPARATOR Inhaled Oxygen Concentration - - Weight 108.4 kg (238 lb 14.4 oz) 12/02/2024 1:42 PM FILLING SEPARATOR Height 172.7 cm (5' 8) 12/02/2024 1:42 PM FILLING SEPARATOR Body Mass Index 36.32 12/02/2024 1:42 PM FILLING SEPARATOR Plan of Treatment Upcoming Encounters Date Type Department Care Team (Late st Contact Info) Description 03/07/2025 11:00 AM CDT Hospital Encounter [facility] [address] [place] [address] Omega Dhaliwal MD [address] [place] [address] 03/07/2025 11:00 AM CDT - 03/07/2025 11:30 AM CDT Surgery [facility] [address] [place] [address] Omega Dhaliwal MD [address] [place] [address] [address] [place] [address] COLONOSCOPY Scheduled Procedures Name Priority Associated Diagnoses Date/Ti me COLONOSCOPY History of colonic polyps Encounter for screening colonoscopy 03/07/2025 11:00 AM CDT COLONOSCOPY Alcoholic cirrhosis of liver without ascites (CMS/HCC) (HCC) Health Maintenance Due Date Last Done Comments Dilated Eye Exam 1962 Lung Cancer Screening 2012 Pneumococcal vaccine <65 (2 of 2 - PCV) 10/11/2017 10/11/2016 Zoster Vaccine (2 of 2) 10/14/2022 08/19/2022 Breast Cancer Screening-Mammogram 08/05/2023 022 Covid-19 Vaccine (2023-2 5 season) 2024 04/11/2021, 03/12/2021 Colon Cancer Screening-Colonoscopy 09/22/2024 09/22/2023 Albumin Creatinine Ratio, Urine 05/06/2025 , 10/22/2022 Foot Exam 05/06/2025 05/06/2024, 04/26, 10/22/2022 Hemoglobin A1C 06/01/2025 12/02/2024, 0710/2023, 04/30/2023, Additional history exists Cervical Cancer Screening 07/24/2025 07/24/2022 Depression Screening 12/02/2025 12/02/2024, 05/06/2024, 10/22/2022, Additional history exists Lipid Panel 12/02/2025 12/02/2024, 04/27, 10/22/2022, Additional history exists Regular Well Visit/Exam 18-64 12/02/2025 12/02/2024 eGFR 12/02/2025 12/02/2024, 04/27, 10/22/2022, Additional history exists DTaP/Tdap/Td Vaccine (2 - Td or Tdap) 05/10/2032 05/10/2022 Hepatitis C Screening Completed 07/12/2022, 020 Colon Cancer Screening-CT Colonography Discontinued 09/22/2023 Colon Cancer Screening-DNA Stool Discontinued 09/22/20, 05/16/2023 Colon Cancer Screening-FIT Discontinued 09/22/2023, Colon Cancer Screening-Sigmoidoscopy Discontinued 09/22/2023 Hepatitis B Screening Completed 12/02/2024 Influenza Vaccine Completed 12/02/2024, , 08/19/2022, Additional history exists Procedures Procedure Name Priority Date/Time Associated Diagnosis Comments HEMOGLOBIN A1C Routine 12/02/2024 9:03 PM FILLING SEPARATOR Class 2 severe obesity due to excess calories with serious comorbidity and body mass index (BMI) of 35.0 to 35.9 in adult (HCC) Pre-diabetes EGFR Routine 12/02/2024 9:02 PM FILLING SEPARATOR Essential hypertension DIFFERENTIAL AUTO Routine 12/02/2024 9:0 2 PM FILLING SEPARATOR Essential hypertension CBC WITH AUTO DIFFERENTIAL Routine 12/02/2024 9:02 PM FILLING SEPARATOR Essential hypertension COMPREHENSIVE METABOLIC PANEL Routine 12/02/2024 9:02 PM FILLING SEPARATOR Essential hypertension LIPID PANEL Routine 12/02/2024 9:02 PM FILLING SEPARATOR Hyperlipidemia, unspecified hyperlipidemia type THYROID FUNCTION CASCADE Routine 12/02/2024 9:02 PM FILLING SEPARATOR Hyperlipidemia, unspecified hyperlipidemia type BILE ACIDS, TOTAL Routine 12/02/2024 9:0 2 PM FILLING SEPARATOR Alcoholic cirrhosis of liver without ascites (CMS/HCC) (HCC) Pruritic condition VITAMIN B12 Routine 12/02/2024 9:02 PM FILLING SEPARATOR History of alcohol abuse FOLATE Routine 12/02/2024 9:02 PM FILLING SEPARATOR History of alcohol abuse VITAMIN D 25 HYDROXY Routine 12/02/2024 8:31 PM FILLING SEPARATOR Vitamin D deficiency HEPATITIS B SURFACE ANTIGEN Routine 12/02/2024 8:31 PM FILLING SEPARATOR Need for hepatitis B screening test HEPATITIS B CORE ANTIBODY, TOTAL Routine 12/02/2024 8:31 PM FILLING SEPARATOR Need for hepatitis B screening test HEPATITIS B SURFACE ANTIBODY (IMMUNE STATUS) Routine 12/02/2024 8:31 PM FILLING SEPARATOR Need for hepatitis B screening test VITAMIN B1 Routine 12/02/2024 2:35 PM FILLING SEPARATOR History of alcohol abuse ALBUMIN CREATININE RATIO, URINE Routine 05/06/2024 4:47 PM CDT Diabetic peripheral neuropathy associated with type 2 diabetes mellitus (CMS/HCC) (HCC) Alcoholic peripheral neuropathy (HCC) COLONOSCOPY 09/22/2023 9:12 AM FILLING SEPARATOR HM MAMMOGRAPHY Routine 08/05/2022 HM PAP SMEAR WITH HPV Routine 07/24/2022 HM HEPATITIS C SCREENING Routine 07/12/2022 from Last 3 Months or Most Recently Relevant to Health Maintenance Results * (ABNORMAL) Hemoglobin A1c (12/02/2024 9:03 PM FILLING SEPARATOR) Hgb A1C 8.3(H) 4.0 - 5.6 % Estimated Average Glucose 192 mg/dL [facility] Comment: The ADA recommends reporting an estimated Average Glucose (eAG) with all Hemoglobin A1c results using the equation derived from a study of 507 normal and diabetic adults. Minority populations were underrepresented and children were not included. (Diabetes Care 31:0626-2495, 2008). The eAG is not equivalent to a fasting glucose. Blood 12/02/2024 9:03 PM FILLING SEPARATOR 12/02/2024 9:03 PM FILLING SEPARATOR us Fady Amaral MD LAB BLOOD ORDERABLES Fi nal Result [facility] [address] Department [place] [address] * eGFR (12/02/2024 9:02 PM FILLING SEPARATOR) eGFR >90 >=60 mL/min/1. 73 m2 Comment: Interpretive Data Reference Interval Normal >/= 90 mL/min/1.73m2 Mildly decreased* 60 - 89 mL/min/1.73m2 Mildly to moderately decreased 45 - 59 mL/min/1.73m2 Moderately to severely decreased 30 - 44 mL/min/1.73m2 Severely decreased 15 - 29 mL/min/1.73m2 Kidney Failure < 15 mL/min/1.73m2 *Relative to young adult level Estimated glomerular filtration rate is determined by the 2020 CKD-EPI equation recommended by the National Kidney Foundation (A Unifying Approach to GFR Estimation: Recommendations of the NKF-ASK Task Force on Reassessing the Inclusion of Race in Diagnosing Kidney Disease, JASN 2020). The CKD-EPI equation should not be used for patients with unstable renal function and has not been validated in children and those over 70. Current interpretive data was last reviewed 2021. Blood 12/02/2024 9:02 PM FILLING SEPARATOR 12/02/2024 9:02 PM FILLING SEPARATOR Fady Amaral MD LAB BLOOD ORDERABLES nal Result [facility] [address] Department [place] [address] * Differential, auto (12/02/2024 9:02 PM FILLING SEPARATOR) Neutrophil abs 5.4 1.5 - 6.5 K/cumm Imm gran abs 0.0 0.0 - 0.1 K/cumm [facility] Lymphocyte abs 3.3 0.8 - 3.3 K/cumm [facility] Monocyte abs 0.6 0.2 - 0.8 K/cumm [facility] Eosinophil abs 0.2 0.0 - 0.5 K/cumm [facility] Basophil abs 0.1 0.0 - 0.1 K/cumm [facility] Neutrophil pct 56.7 % [facility] Comment: Interpretive Data Percent cell count reference ranges are not reported, since discordance with absolute values may lead to misinterpretation of CBC data. Current Interpretive Data was last revised on 2018. Imm gran pct 0.2 % [facility] Comment: Interpretive Data Percent cell count reference ranges are not reported, since discordance with absolute values may lead to misinterpretation of CBC data. Current Interpretive Data was last revised on 2018. Lymphocyte pct 34.1 % [facility] Comment: Interpretive Data Percent cell count reference ranges are not reported, since discordance with absolute values may lead to misinterpretation of CBC data. Current Interpretive Data was last revised on 2018. Monocyte pct 6.1 % [facility] Comment: Interpretive Data Percent cell count reference ranges are not reported, since discordance with absolute values may lead to misinterpretation of CBC data. Current Interpretive Data was last revised on 2018. Eosinophil pct 1.8 % [facility] Comment: Interpretive Data Percent cell count reference ranges are not reported, since discordance with absolute values may lead to misinterpretation of CBC data. Current Interpretive Data was last revised on 2018. Basophil pct 1.1 % [facility] Comment: Interpretive Data Percent cell count reference ranges are not reported, since discordance with absolute values may lead to misinterpretation of CBC data. Current Interpretive Data was last revised on 2018. Blood 12/02/2024 9:02 PM FILLING SEPARATOR 12/02/2024 9:02 PM FILLING SEPARATOR Fady Amaral MD LAB BLOOD ORDERABLES Fi nal Result Performing Organization Address [facility] Co de Phone Number [facility] [phone] [address] [facility] [place] [address] * Thyroid Function [place] (12/02/2024 9:02 PM FILLING SEPARATOR) TSH 1.33 0.30 - 4.20 mcIUnit/mL Blood 12/02/2024 9:02 PM FILLING SEPARATOR 12/02/2024 9:02 PM FILLING SEPARATOR Fady Amaral MD LAB BLOOD ORDERABLES Fi nal Result Performing Organization Address [facility] Co de Phone Number [facility] [phone] Department [place] [employer] [place] [address] * (ABNORMAL) CBC with auto differential (12/02/2024 9:02 PM FILLING SEPARATOR) WBC 9.6 3.8 - 9.9 K/cumm Hgb 16.0(H) 11.9 - 15.5 g/dL [facility] Hct 49.8(H) 35.6 - 45.5 % [facility] Plt 189 150 - 400 K/cumm [facility] MPV 12.8(H) 9.1 - 12.3 fL [facility] RBC 5.16 3.90 - 5.20 M/cumm [facility] MCV 96.5(H) 81.3 - 96.4 fL [facility] MCH 31.0 27.1 - 33.3 pg [facility] MCHC 32.1(L) 32.3 - 35.7 g/dL [facility] RDW CV 14.5 11.1 - 14.9 % [facility] RDW SD 51.3(H) 35.7 - 48.1 fL [facility] NRBC abs 0.00 0.00 - 0.01 K/cumm [facility] Blood 12/02/2024 9:02 PM FILLING SEPARATOR 12/02/2024 9:02 PM FILLING SEPARATOR Fady Amaral MD LAB BLOOD ORDERABLES Fi nal Result Performing Organization Address [facility] Co de Phone Number [facility] [phone] [place] [place] [address] * (ABNORMAL) Bile acids (12/02/2024 9:02 PM FILLING SEPARATOR) Bile acids 12(H) <=10 mcmol/L [place] ref Lab Comment: Test Performed by: [address] [address] [employer] Operator: Maximo Duran Ph.D.; CLIA# [id number] Blood 12/02/2024 9:02 PM FILLING SEPARATOR 12/03/2024 9:13 AM FILLING SEPARATOR Fady Amaral MD LAB BLOOD ORDERABLES Fi nal Result Performing Organization Address [facility] Co de Phone Number [facility] [phone] [address] [facility] [employer] [place] [address] [facility] ref [facility] * Folate (12/02/2024 9:02 PM FILLING SEPARATOR) Pathologist [facility] Folic acid 6.4 >=5.0 ng/mL Blood 12/02/2024 9:02 PM FILLING SEPARATOR 12/02/2024 9:02 PM FILLING SEPARATOR Fady Amaral MD LAB BLOOD ORDERABLES Fi nal Result Performing Organization Address [facility] Co de Phone Number [facility] [address] [employer] [place] [address] * Vitamin B12 (12/02/2024 9:02 PM FILLING SEPARATOR) Pathologist [facility] Vitamin B12 670 230 - 1,250 pg/mL Blood 12/02/2024 9:02 PM FILLING SEPARATOR 12/02/2024 9:02 PM FILLING SEPARATOR Fady Amaral MD LAB BLOOD ORDERABLES Fi nal Result Performing Organization Address [facility] de Phone Number [facility] [phone] [address] [facility] [employer] [place] [address] * (ABNORMAL) Lipid panel (12/02/2024 9:02 PM FILLING SEPARATOR) Pathologist [facility] Cholesterol 197 30 - 199 mg/dL Comment: Interpretive Data Ages < or = 19 years Acceptable: <170 mg/dL Borderline high: 170-199 mg/dL High: >or= 200 mg/dL Ages > or = 20 years Desirable: <200 mg/dL Borderline high: 200-239 mg/dL High: >or= 240 mg/dL Literature References: 1. Expert Panel on Integrated Guidelines for Cardiovascular Health and Risk Reduction in Children and Adolescents. Pediatrics 2011;128:S213 2. NCEP Expert Panel. Circulation 2004;110:227 Current Interpretive Data was last revised on 2018. Triglycerides 121 <=149 mg/dL [facility] Comment: Interpretive Data Ages < or = 9 years Acceptable: <75 mg/dL Borderline high: 75-99 mg/dL High: >or= 100 mg/dL Ages 10 to 20 years Acceptable: <90 mg/dL Borderline high: 90-129 mg/dL High: >or= 130 mg/dL Ages > or = 20 years Desirable: <150 mg/dL Borderline high: 150-199 mg/dL High: 200-499 mg/dL Very high: >or= 499 mg/dL Literature References: 1. Expert Panel on Integrated Guidelines for Cardiovascular Health and Risk Reduction in Children and Adolescents. Pediatrics 2011;128:S213 2. NCEP Expert Panel. Circulation 2004;110:227 Current Interpretive Data was last revised on 2018. HDL 42 >=40 mg/dL [facility] Comment: Interpretive Data Ages < or = 19 years Acceptable: >45 mg/dL Borderline low: 40-45 mg/dL Low: <40 mg/dL Ages > or = 20 years Desirable: >or= 60 mg/dL Low: <40 mg/dL Literature References: 1. Expert Panel on Integrated Guidelines for Cardiovascular Health and Risk Reduction in Children and Adolescents. Pediatrics 2011;128:S213 2. NCEP Expert Panel. Circulation 2004;110:227 Current Interpretive Data was last revised on 2018. LDL, calculated 133(H) <=129 mg/dL [facility] Comment: Interpretive Data Ages < or = 19 years Acceptable: <110 mg/dL Borderline high: 110-129 mg/dL High: >or= 130 mg/dL Ages > or = 20 years Optimal: <100 mg/dL Near optimal: 100-129 mg/dL Borderline high: 130-159 mg/dL High: >160 mg/dL Calculated using the Kenneth LDL-C estimating equation. This equation was implemented on 2024. Prior to this date LDL-C was estimated using the Friedewald equation. Literature References: 1. Expert Panel on Integrated Guidelines for Cardiovascular Health and Risk Reduction in Children and Adolescents. Pediatrics 2011;128:S213 2. NCEP Expert Panel. Circulation 2004;110:227 3. Kenneth Saeed al. JAYLEEN Cardiol. 2020 February 24;5(5):540-548. doi: 10.1001/jamacardio.[email or web address] Current Interpretive Data was last revised on 2024. Non-HDL Cholesterol 155 mg/dL [facility] Comment: Interpretive Data Ages < or = 19 years Acceptable: <120 mg/dL Borderline high: 120-144 mg/dL High: >145 mg/dL Ages > or = 20 years When triglycerides are >200 mg/dL, Non-HDL cholesterol is a secondary target of therapy with treatment goals that are 30 mg/dL greater than the LDL cholesterol target. Literature References: 1. Expert Panel on Integrated Guidelines for Cardiovascular Health and Risk Reduction in Children and Adolescents. Pediatrics 2011;128:S213 2. NCEP Expert Panel. Circulation 2004;110:227 Current Interpretive Data was last revised on 2018. Chol/HDL ratio 5 [facility] Blood 12/02/2024 9:02 PM FILLING SEPARATOR 12/02/2024 9:02 PM FILLING SEPARATOR Narrative [facility] - 12/02/2024 9:37 PM FILLING SEPARATOR Has the patient been fasting for 8 hours or more?->No us Fady Amaral MD LAB BLOOD ORDERABLES Fi nal Result [facility] [address] Department [place] [address] * (ABNORMAL) Comprehensive metabolic panel (12/02/2024 9:02 PM FILLING SEPARATOR) Sodium 140 135 - 145 mmol/L Potassium, pl 4.6 3.3 - 4.9 mmol/L [facility] Chloride 105 97 - 110 mmol/L [facility] CO2 26 22 - 32 mmol/L [facility] Anion gap 9 2 - 15 mmol/L [facility] BUN 5(L) 6 - 25 mg/dL [facility] Creatinine 0.64 0.60 - 1.10 mg/dL [facility] Glucose 156 70 - 199 mg/dL [facility] Comment: Interpretive Data Fasting glucose >/= 126 mg/dl is diagnostic for diabetes. Fasting is defined as no caloric intake for at least 8 hours. Fasting glucose between 100 mg/dl to 125 mg/dl is diagnostic of prediabetes. In a patient with classic symptoms of hyperglycemia or hyperglycemic crisis, a random glucose >/= 200 mg/dl is diagnostic for diabetes. In the absence of unequivocal hyperglycemia, results should be confirmed by repeat testing. The classification and Diagnosis of Diabetes Diabetes Care 2021; 46: S19-S40. Current interpretive data was last revised 2022. Calcium 9.6 8.5 - 10.3 mg/dL [facility] Bilirubin, total 0.5 0.1 - 1.2 mg/dL [facility] Protein, pl 7.0 6.5 - 8.5 g/dL [facility] Albumin 4.3 3.5 - 5.0 g/dL [facility] Alk phos 156(H) 40 - 130 Units/L [facility] ALT 21 7 - 45 Units/L [facility] AST 30 10 - 45 Units/L [facility] Blood 12/02/2024 9:02 PM FILLING SEPARATOR 12/02/2024 9:02 PM FILLING SEPARATOR Fady Amaral MD LAB BLOOD ORDERABLES Fi nal Result Performing Organization Address City/[facility]/ZIP Co de Phone Number [facility] [address] [place] [employer] [place] [place] [address] * Hepatitis B core antibody, total Blood (12/02/2024 8:31 PM FILLING SEPARATOR) Pathologist [facility] Hep B core IgG/IgM Nonreactive Nonreactive Comment:Testing performed by : [facility], [address], [place]., [address] Blood 12/02/2024 8:31 PM FILLING SEPARATOR 12/03/2024 10:07 AM FILLING SEPARATOR Fady Amaral MD LAB MICROBIOLOGY - GENE RAL ORDERABLES Final Result [facility] [address] [place] [employer] [place] [place] [address] * (ABNORMAL) Vitamin D 25 hydroxy (12/02/2024 8:31 PM FILLING SEPARATOR) Pathologist [facility] Vitamin D 25-OH 29(L) 30 - 80 ng/mL Blood 12/02/2024 8:31 PM FILLING SEPARATOR 12/02/2024 9:51 PM FILLING SEPARATOR Fady Amaral MD LAB BLOOD ORDERABLES Fi nal Result Performing Organization Address [facility] de Phone Number [facility] [address] [address] [facility] [employer] [place] [address] * Hepatitis B surface antibody (immune status) Blood (12/02/2024 8:31 PM FILLING SEPARATOR) [facility] HBsAb (immune status) Nonreactive Comment: Interpretive Data Nonreactive: This result is consistent with a lack of immunity to Hepatitis B Virus when used in the setting of routine screening. Equivocal: The immune status of the individual should be further assessed, if appropriate, after consideration of clinical status, risk factors, and additional diagnostic information. Reactive: This result is consistent with immunity to Hepatitis B Virus when used in the setting of routine screening. Current interpretive data was last revised on 20. Blood 12/02/2024 8:31 PM FILLING SEPARATOR 12/02/2024 9:51 PM FILLING SEPARATOR Fady mAaral MD LAB MICROBIOLOGY - GENE RAL ORDERABLES Final Result Performing Organization Address [facility] [place] [address] [address] [facility] [employer] [place] [address] * Hepatitis B Surface Antigen Blood (12/02/2024 8:31 PM FILLING SEPARATOR) [facility] HepBsAg Nonreactive Nonreactive Blood 12/02/2024 8:31 PM FILLING SEPARATOR 12/02/2024 9:51 PM FILLING SEPARATOR Fady Amaral MD LAB MICROBIOLOGY - GENE RAL ORDERABLES Final Result Performing Organization Address [facility] de Phone [place] [place] [place] [address] [address] [facility] [employer] [place] [address] * Vitamin B1 (12/02/2024 2:35 PM FILLING SEPARATOR) Pathologist [facility] Thiamine (Vit B1) 139 70 - 180 nmol/L [place] ref [facility] Comment: ADDITIONAL INFORMATION This test was developed and its performance characteristics determined by [facility] in a manner consistent with CLIA requirements. This test has not been cleared or approved by the U.S. Food and Drug Administration. Test Performed by: [facility] - [facility] [address] [place] [address] Hob Machine Operator: Maximo Duran Ph.D.; CLIA# [id number] Blood 12/02/2024 2:35 PM FILLING SEPARATOR 12/03/2024 11:10 AM FILLING SEPARATOR Fady Amaral MD LAB BLOOD ORDERABLES Fi nal Result Performing Organization Address [facility] Co de Phone Number [facility] [place]AKOB [address] [address] [place] [place] [address] [place] ref Lab * Albumin Creatinine Ratio, Urine (05/06/2024 4:47 PM CDT) Albumin Ur <12.0 mg/L Comment: Interpretive Data No reference range established. Current interpretive data was last revised 2019. Creatinine Ur 10.6 mg/dL [facility] Comment: Interpretive Data No reference range established. Current interpretive data was last revised 2019. Albumin Creatinine Ratio, Ur See Comment 1 - 29 [facility] Comment:Unable to calculate Urine 05/06/2024 4:47 PM CDT 05/06/2024 6:43 PM CDT Megha Orr MD LAB URINE ORDERABLES F inal Result Performing Organization Address City/[facility] Co de Phone Number [facility] [place] [address] [address] [place] [place] [address] * COLONOSCOPY (09/22/2023 9:12 AM FILLING SEPARATOR) Anatomical Region Laterality Modality Other Narrative Procedure Note Omega Dhaliwal MD - 09/22/2023 9:12 AM CST [facility] Patient Name: Lynn Ascencio Procedure Date: 09/22/2023 9:12 AM Date of : 1960 Admit Type: Outpatient Age: 62 Gender: Female Attending MD: Omega Dhaliwal M.D. 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 Last colonoscopy 10-15 yearsago with polyps per patient, exam was also incompletedue to inadequate prep. No record for review. No familyhx of colon cancer. Procedure: Colonoscopy Indications: High risk colon cancer surveillance: Personalhistory of colonic polyps, Last colonoscopy: date unknown Referring MD: Megha Orr M.D. Providers: Omega Dhaliwal M.D. Impression: - Preparation of the colon was fair. - Perianal skin tags found on perianal exam. - Two 4 to 8 mm polyps in the cecum, removed with a cold snare. Resected and retrieved. - One 4 mm polyp in the cecum, removed with a cold snare. Resected and retrieved. - Large lipoma in the ascending colon. - One 10 mm polyp in the descending colon, removed with a cold snare. Resected and retrieved. - One 4 mm polyp in the sigmoid colon, removed witha cold snare. Resected and retrieved. - One 5 mm polyp in the sigmoid colon, removed witha cold snare. Resected and retrieved. - Diverticulosis in the entire examined colon. - External and internal hemorrhoids. Recommendation: - Patient has a contact number available for emergencies. The signs and symptoms of potential delayed complications were discussed with thepatient. Return to normal activities tomorrow. Written discharge instructions were provided to thepatient. - Discharge patient to home (with escort). - Resume previous diet. - Continue present medications. - Await pathology results. - Repeat colonoscopy in 1 year with 2 day bowelprep for surveillance based on pathology results. - Return to primary care physician as previously scheduled. Medicines: Monitored Anesthesia Care Complications: No immediate complications. Estimated Blood Loss: Estimated blood loss was minimal. Procedure: Pre-Anesthesia Assessment: - Prior to the procedure, a History and Physicalwas performed, and patient medications and allergieswere reviewed. The patient is competent. The risks and benefits of the procedure and the sedation optionsand risks were discussed with the patient. Allquestions were answered and informed consent was obtained. Patient identification and proposed procedure were verified by the physician, the overnight houseperson and the psychiatric technician assistant in the endoscopy suite. Mental Status Examination: normal. Prophylactic Antibiotics: The patient does not require prophylactic antibiotics. Prior Anticoagulants: The patient has taken no anticoagulant or antiplatelet agents. Afterreviewing the risks and benefits, the patient was deemed in satisfactory condition to undergo the procedure.The anesthesia plan was to use monitored anesthesiacare (MAC). Immediately prior to administration of medications, the patient was re-assessed foradequacy to receive sedatives. The heart rate, respiratory rate, oxygen saturations, blood pressure, adequacyof pulmonary ventilation, and response to care were monitored throughout the procedure. The physical status of the patient was re-assessed after the procedure. The benefits, risks and alternatives of theprocedure and sedation were discussed and informed consentwas obtained. All questions were answered. Please referto the signed informed consent document in the medical record. The bowel preparation used was Miralax and bisacodyl tablets via split dose instruction. The scope was passed under direct vision. TheColonoscope [id number] was introduced through the anus and advanced to the the cecum, identified by appendiceal orifice and ileocecal valve. The colonoscopy was performed without difficulty. The patient tolerated the procedure well. The qualityof the bowel preparation was fair. Bowel prep was administered using a split dose. Findings: Skin tags were found on perianal exam. Two Evette classification IIa (superficial, elevated) polyps werefound in the cecum. The polyps were 4 to 8 mm in size. These polyps were removed with a cold snare. Resection and retrieval were complete. A 4 mm polyp was found in the cecum. The polyp was sessile. The polyp was removed with a cold snare. Resection and retrieval werecomplete. There was a large lipoma, in the ascending colon. A 10 mm polyp was found in the descending colon. The polyp was Evette classification IIa (superficial, elevated). The polyp was removedwith a cold snare. Resection and retrieval were complete. A 4 mm polyp was found in the sigmoid colon. The polyp was semi-pedunculated. The polyp was removed with a cold snare. Resection and retrieval were complete. A 5 mm polyp was found in the sigmoid colon. The polyp was Evette classification IIa (superficial, elevated). The polyp was removedwith a cold snare. Resection and retrieval were complete. Multiple small and large-mouthed diverticula were found in the entire colon. External and internal hemorrhoids were found during retroflexion and during endoscopy. Omega Dhaliwal M.D. 09/22/2023 11:45:15 AM Number of Addenda: 0 Note Initiated On: 09/22/2023 9:12 AM Procedure Code(s): --- Professional --- 27627, Colonoscopy, flexible; with removal of tumor(s), polyp(s), or other lesion(s) by snare technique --- Technical --- 23678, Colonoscopy, flexible; with removal of tumor(s), polyp(s), or other lesion(s) by snare technique Diagnosis Code(s): --- Professional --- Z86.010, Personal history of colonic polyps K64.8, Other hemorrhoids D12.0, Benign neoplasm of cecum D12.4, Benign neoplasm of descending colon D12.5, Benign neoplasm of sigmoid colon K64.4, Residual hemorrhoidal skin tags K57.30, Diverticulosis of large intestine without perforation orabscess without bleeding --- Technical --- Z86.010, Personal history of colonic polyps K64.8, Other hemorrhoids D12.0, Benign neoplasm of cecum D12.4, Benign neoplasm of descending colon D12.5, Benign neoplasm of sigmoid colon K64.4, Residual hemorrhoidal skin tags K57.30, Diverticulosis of large intestine without perforation orabscess without bleeding CPT copyright 2020 [employer]. All rights reserved. The codes documented in this report are preliminary and upon surgical coder reviewmay be revised to meet current compliance requirements. Recognized by the [employer] for promoting quality in endoscopy Omega Dhaliwal MD ENDOSCOPY PROCEDURES Edited Resu lt - Final * MAMMOGRAPHY (08/05/2022) Historical Provider HEALTH MAINTENANCE Final Result * PAP SMEAR WITH HPV (07/24/2022) [facility] Provider HEALTH MAINTENANCE Final Result * HEPATITIS C SCREENING (07/12/2022) Historical Provider HEALTH MAINTENANCE Final Result from Last 3 Months or Most Recently Relevant to Health Maintenance Insurance [facility] MEDICARE [facility] MEDICARE [facility] Address: [address] [address] [place] [address] [employer] MEDICARE PPO [employer]ICARE [facility] Address: [facility] [address] [place] [address] Advance Directives For more information, please contact: [phone] * Full Code (Latest Code Status on File) Date Activated Date Inactivated Comments 09/22/2023 9:09 AM 09/22/2023 4:28 PM * Full Code Date Activated Date Inactivated Comments 09/22/2023 9:09 AM 09/22/2023 9:09 AM * Full Code Date Activated Date Inactivated Comments 12/16/2022 9:57 AM 12/16/2022 6:05 PM * Full Code Date Activated Date Inactivated Comments 03/03/2020 2:45 PM 03/06/2020 3:58 PM * Full Code Date Activated Date Inactivated Comments 03/01/2020 1:01 AM 03/03/2020 2:45 PM 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
--- OUTSIDE RECORDS SUMMARY | 2024-12-12 04:40 | XMS_ITS | Referral Summary ---
Author Organization [facility] Address [address] [place] [address] Care Team Providers Care Aoc Director Combat Plans Officer Name Role Phone Mukund Roche MD Unavailable [phone] Fady Amaral MD Primary Care Provider Encounters Date Type Department Care Team Description 12/03/2024 Telephone [facility] Primary Care at [address] [place] [address] Fady Amaral MD 12/02/2024 2:35 PM SR. PAYROLL PROCESSOR - 12/02/2024 11:59 PM SR. PAYROLL PROCESSOR Hospital Encounter [facility] [address] [place] [address] History of alcohol abuse; Alcoholic cirrhosis of liver without ascites (CMS/HCC) (HCC); Pruritic condition; Vitamin D deficiency; Hyperlipidemia, unspecified hyperlipidemia type; Class 2 severe obesity due to excess calories with serious comorbidity and body mass index (BMI) of 35.0 to 35.9 in adult (HCC); Pre-diabetes; Essential hypertension; Need for hepatitis B screening test Discharge Disposition: Discharge to home or self care 12/02/2024 Telephone [facility] Gastroenterology at [address] [place] [phone] Omega Dhaliwal MD 12/02/2024 2:45 PM SR. PAYROLL PROCESSOR Lab [facility] Outpatient Lab at [address] [address] Vitamin D deficiency (Primary Dx) 12/02/2024 1:45 PM SR. 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 Place 1 patch on the skin daily 28 patch 3 12/02/19 25 025 Active traZODone (DESYREL) 150 mg tabletIndications: Alcohol-induced insomnia (CMS/HCC) (HCC) Take 1 tablet (150 mg total) by mouth nightly as needed for sleep 90 tablet 3 12/02/19 25 Active gabapentin (NEURONTIN) 300 mg capsule Take 1 capsule (300 mg total) by mouth 3 (three) times a day 270 capsule 3 12/02/19 25 Active losartan (COZAAR) 25 mg [...] hyperglycemia, without long-term current use of insulin (HCC) Take 1 tablet (500 mg total) by [...] Dyslipidemia associated with type 2 diabetes suzanne litus 12/03/2024 Assessment & Plan (12/03/2024 5:32 AM SR. PAYROLL PROCESSOR): - chronic, uncontrolled - has known T2DM [...] 12/02/2024 Assessment & Plan (12/03/2024 5:31 AM SR. PAYROLL PROCESSOR): - chronic condition, worse - used to [...] noted Assessment & Plan (12/02/2024 2:41 PM SR. PAYROLL PROCESSOR): - new diagnosis, reports pruritus - check bile acids given her known liver cirrhosis, order placed Preventative health care 12/02/2024 Assessment & Plan (12/03/2024 5:28 AM SR. PAYROLL PROCESSOR): - New or chronic worsening conditions: Insomnia, [...] 05/06/2024 Assessment & Plan (12/02/2024 1:58 PM SR. PAYROLL PROCESSOR): Wt Readings from Last 3 Encounters: 12/02/24 [...] 07/16/2023 Assessment & Plan (12/02/2024 2:37 PM SR. PAYROLL PROCESSOR): - hx of colon polyp - had incomplete prep on colonosocpy on 08/2023, told to repeat in 1 years - new referral placed to GI for repeat colonoscopy Neuropathy 10/22/2022 Overview (12/02/2024): Recommend podiatry follow up /monitoring regularly Assessment & Plan (12/03/2024 5:26 AM SR. PAYROLL PROCESSOR): - chronic condition, persistent/controlled - hx of [...] they will get back in with the loan associate. Continue use of diabetic shoes and insoles. [...] 10/22/2022 Assessment & Plan (12/03/2024 5:28 AM SR. PAYROLL PROCESSOR): Chronic. Patient remains sober since 2019 when [...] GI Assessment & Plan (12/03/2024 5:27 AM SR. PAYROLL PROCESSOR): - chronic condition, stable - no hx [...] 03/10/2020 Assessment & Plan (12/02/2024 2:12 PM SR. PAYROLL PROCESSOR): - Chronic. Not at goal - used [...] 02/29/2020 Assessment & Plan (12/02/2024 2:40 PM SR. PAYROLL PROCESSOR): - chronic condition, not at ogal - [...] 01/25/2020 Assessment & Plan (12/02/2024 2:33 PM SR. PAYROLL PROCESSOR): - chronic condition, not at goal - [...] tobacco use but no prior PFTs in C system. Currently without wheezing -Continue PRN albuterol Assessment & Plan (03/01/2020 1:51 PM CDT): Chart history & long standing history of tobacco use but no prior PFTs in [facility] system. Currently without wheezing -Continue PRN albuterol Assessment & Plan (02/29/2020 9:09 PM CDT): Chart history & long standing history of tobacco use but no prior PFTs in C system. Currently without wheezing -Continue PRN albuterol -Will need outpatient PFTs in the future Vitamin D deficiency 06/10/2018 Assessment & Plan (12/03/2024 5:27 AM SR. PAYROLL PROCESSOR): - chronic condition, not at goal - [...] 03/02/2018 Assessment & Plan (12/02/2024 1:59 PM SR. PAYROLL PROCESSOR): Blood Pressure Management BP Readings from Last [...] 03/02/2018 Assessment & Plan (12/02/2024 2:01 PM SR. PAYROLL PROCESSOR): Social History Tobacco Use Smoking Status Every [...] disc 08/29/2018 12/02/2024 Depressive disorder 04/13/2018 10/22/20 22 Assessment & Plan (03/03/2020 5:41 AM CDT): [...] risk of liver injury with cholesterol medication Immunizations Immunization Administration Dates Next Due Influenza, Quadrivalent, Judith l Culture-based MDCK, Preservative Free, Antibiotic Free, Intramuscular 08/18/2023,11/08/2021 Influenza, Quadrivalent, Spl it, Intramuscular 08/02/2019,10/11/2016 Influenza, Quadrivalent, Spl it, Preservative Free, Intramuscular 08/19/2022,08/26/2018,09/04/2017 Influenza, Trivalent, IM (MDV) 08/01/2015 Influenza, Trivalent, Preser vative Free, Intramuscular 12/02/2024 Moderna SARS-CoV-2 Monovalen t Vaccination (12+ YRS) 04/11/2021,03/12/2021 Pneumococcal Polysaccharide PPV23 10/11/2016 Tdap 05/10/2022 ZOSTER Recombinant 08/19/2022 Social History Tobacco Use Types Packs/Day Years [...] on file Legal Sex Female 9:26 PM SR. PAYROLL PROCESSOR Gender Identity Female 03/10/2020 11:13 AM CDT Sexual Orientation Straight 03/10/2020 11 :13 AM CDT Last Filed Vital Signs Vital Sign Reading Time Taken Comments Blood Pressure 126/80 12/02/2024 1:42 PM SR. PAYROLL PROCESSOR Pulse 78 12/02/2024 1:42 PM SR. PAYROLL PROCESSOR Temperature 36.7 C (98.1 F) 12/02/2024 1:42 PM SR. PAYROLL PROCESSOR Respiratory Rate 16 05/06/2024 4:06 PM CDT Oxygen Saturation 98% 12/02/2024 1:42 PM SR. PAYROLL PROCESSOR Inhaled Oxygen Concentration - - Weight 108.4 kg (238 lb 14.4 oz) 12/02/2024 1:42 PM SR. PAYROLL PROCESSOR Height 172.7 cm (5' 8) 12/02/2024 1:42 PM SR. PAYROLL PROCESSOR Body Mass Index 36.32 12/02/2024 1:42 PM SR. PAYROLL PROCESSOR Plan of Treatment Upcoming Encounters Date Type Department Care Team (Late st Contact Info) Description 03/07/2025 11:00 AM CDT Hospital Encounter [address] [address] Omega Dhaliwal MD [address] [place] [address] 03/07/2025 11:00 AM CDT - 03/07/2025 11:30 AM CDT Surgery [address] [address] Omega Dhaliwal MD [address] [place] [address] COLONOSCOPY Scheduled Procedures Name Priority Associated Diagnoses Date/Ti me COLONOSCOPY History of colonic polyps Encounter for screening colonoscopy 03/07/2025 11:00 AM CDT COLONOSCOPY Alcoholic cirrhosis of liver without ascites (CMS/HCC) (HCC) Procedures Procedure Name Priority Date/Time Associated Diagnosis Comments HEMOGLOBIN A1C Routine 12/02/2024 9:03 PM SR. PAYROLL PROCESSOR Class 2 severe obesity due to excess calories with serious comorbidity and body mass index (BMI) of 35.0 to 35.9 in adult (HCC) Pre-diabetes EGFR Routine 12/02/2024 9:02 PM SR. PAYROLL PROCESSOR Essential hypertension DIFFERENTIAL AUTO Routine 12/02/2024 9:0 2 PM SR. PAYROLL PROCESSOR Essential hypertension CBC WITH AUTO DIFFERENTIAL Routine 12/02/2024 9:02 PM SR. PAYROLL PROCESSOR Essential hypertension COMPREHENSIVE METABOLIC PANEL Routine 12/02/2024 9:02 PM SR. PAYROLL PROCESSOR Essential hypertension LIPID PANEL Routine 12/02/2024 9:02 PM SR. PAYROLL PROCESSOR Hyperlipidemia, unspecified hyperlipidemia type THYROID FUNCTION CASCADE Routine 12/02/2024 9:02 PM SR. PAYROLL PROCESSOR Hyperlipidemia, unspecified hyperlipidemia type BILE ACIDS, TOTAL Routine 12/02/2024 9:0 2 PM SR. PAYROLL PROCESSOR Alcoholic cirrhosis of liver without ascites (CMS/HCC) (HCC) Pruritic condition VITAMIN B12 Routine 12/02/2024 9:02 PM SR. PAYROLL PROCESSOR History of alcohol abuse FOLATE Routine 12/02/2024 9:02 PM SR. PAYROLL PROCESSOR History of alcohol abuse VITAMIN D 25 HYDROXY Routine 12/02/2024 8:31 PM SR. PAYROLL PROCESSOR Vitamin D deficiency HEPATITIS B SURFACE ANTIGEN Routine 12/02/2024 8:31 PM SR. PAYROLL PROCESSOR Need for hepatitis B screening test HEPATITIS B CORE ANTIBODY, TOTAL Routine 12/02/2024 8:31 PM SR. PAYROLL PROCESSOR Need for hepatitis B screening test HEPATITIS B SURFACE ANTIBODY (IMMUNE STATUS) Routine 12/02/2024 8:31 PM SR. PAYROLL PROCESSOR Need for hepatitis B screening test VITAMIN B1 Routine 12/02/2024 2:35 PM SR. PAYROLL PROCESSOR History of alcohol abuse ALBUMIN CREATININE RATIO, URINE Routine 05/06/2024 4:47 PM CDT Diabetic peripheral neuropathy associated with type 2 diabetes mellitus (CMS/HCC) (HCC) Alcoholic peripheral neuropathy (HCC) COLONOSCOPY 09/22/2023 9:12 AM SR. PAYROLL PROCESSOR HM MAMMOGRAPHY Routine 08/05/2022 PAP SMEAR WITH HPV Routine 07/24/2022 HEPATITIS C SCREENING Routine 07/12/2022 from Last 3 Months or Most Recently Relevant to Health Maintenance Results * (ABNORMAL) Hemoglobin A1c (12/02/2024 9:03 PM SR. PAYROLL PROCESSOR) Hgb A1C 8.3(H) 4.0 - 5.6 % Estimated Average Glucose 192 mg/dL [facility] ROBERT Comment: The ADA recommends reporting an estimated Average Glucose (eAG) with all Hemoglobin A1c results using the equation derived from a study of 507 normal and diabetic adults. Minority populations were underrepresented and children were not included. (Diabetes Care 31:4258-8477, 2008). The eAG is not equivalent to a fasting glucose. Blood 12/02/2024 9:03 PM SR. PAYROLL PROCESSOR 12/02/2024 9:03 PM SR. PAYROLL PROCESSOR Fady Amaral MD LAB BLOOD ORDERABLES Fi nal Result [facility] ROBERT [address] [place] [address] * eGFR (12/02/2024 9:02 PM SR. PAYROLL PROCESSOR) eGFR >90 >=60 mL/min/1. 73 m2 Comment: [...] last reviewed 2021. Blood 12/02/2024 9:02 PM SR. PAYROLL PROCESSOR 12/02/2024 9:02 PM SR. PAYROLL PROCESSOR Fady Amaral MD LAB BLOOD ORDERABLES Fi nal Result [facility] [address] [place] [address] * Differential, auto (12/02/2024 9:02 PM SR. PAYROLL PROCESSOR) Neutrophil abs 5.4 1.5 - 6.5 K/cumm Imm gran abs 0.0 0.0 - 0.1 K/cumm [facility] Lymphocyte abs 3.3 0.8 - 3.3 K/cumm [facility] Monocyte abs 0.6 0.2 - 0.8 K/cumm [facility] Eosinophil abs 0.2 0.0 - 0.5 K/cumm [facility] Basophil abs 0.1 0.0 - 0.1 K/cumm [facility] Neutrophil pct 56.7 % [facility] Comment: Interpretive Data Percent cell count reference ranges are not reported, since discordance with absolute values may lead to misinterpretation of CBC data. Current Interpretive Data was last revised on 2018. Imm gran pct 0.2 % [facility] Comment: Interpretive Data Percent cell count reference ranges are not reported, since discordance with absolute values may lead to misinterpretation of CBC data. Current Interpretive Data was last revised on 2018. Lymphocyte pct 34.1 % [facility] Comment: Interpretive Data Percent cell count reference ranges are not reported, since discordance with absolute values may lead to misinterpretation of CBC data. Current Interpretive Data was last revised on 2018. Monocyte pct 6.1 % [facility] Comment: Interpretive Data Percent cell count reference ranges are not reported, since discordance with absolute values may lead to misinterpretation of CBC data. Current Interpretive Data was last revised on 2018. Eosinophil pct 1.8 % [facility] Comment: Interpretive Data Percent cell count reference ranges are not reported, since discordance with absolute values may lead to misinterpretation of CBC data. Current Interpretive Data was last revised on 2018. Basophil pct 1.1 % [facility] Comment: Interpretive Data Percent cell count reference ranges are not reported, since discordance with absolute values may lead to misinterpretation of CBC data. Current Interpretive Data was last revised on 2018. Blood 12/02/2024 9:02 PM SR. PAYROLL PROCESSOR 12/02/2024 9:02 PM SR. PAYROLL PROCESSOR Fady Amaral MD LAB BLOOD ORDERABLES Fi nal Result Performing Organization Address City/[facility]/ZIP Co de Phone Number VASQUEZ [address] [place] [address] * Thyroid Function [place] (12/02/2024 9:02 PM SR. PAYROLL PROCESSOR) [facility] TSH 1.33 0.30 - 4.20 mcIUnit/mL Blood 12/02/2024 9:02 PM SR. PAYROLL PROCESSOR 12/02/2024 9:02 PM SR. PAYROLL PROCESSOR Fady Amaral MD LAB BLOOD ORDERABLES Fi nal Result Performing Organization Address City/[facility] Co de Phone Number VASQUEZ ROBERT [address] [place] [place], [place] [id number] * (ABNORMAL) CBC with auto differential (12/02/2024 9:02 PM SR. PAYROLL PROCESSOR) Pathologist [facility] WBC 9.6 3.8 - 9.9 K/cumm Hgb 16.0(H) 11.9 - 15.5 g/dL [facility] Hct 49.8(H) 35.6 - 45.5 % [facility] Plt 189 150 - 400 K/cumm [facility] MPV 12.8(H) 9.1 - 12.3 fL [facility] RBC 5.16 3.90 - 5.20 M/cumm [facility] MCV 96.5(H) 81.3 - 96.4 fL [facility] MCH 31.0 27.1 - 33.3 pg [facility] MCHC 32.1(L) 32.3 - 35.7 g/dL [facility] RDW CV 14.5 11.1 - 14.9 % [facility] RDW SD 51.3(H) 35.7 - 48.1 fL [facility] CH NRBC abs 0.00 0.00 - 0.01 K/cumm [facility] CH Blood 12/02/2024 9:02 PM SR. PAYROLL PROCESSOR 12/02/2024 9:02 PM SR. PAYROLL PROCESSOR Fady Amaral MD LAB BLOOD ORDERABLES Fi nal Result Performing Organization Address [facility] de Phone Number VASQUEZ ROBERT [address] [facility] [place] [address] * (ABNORMAL) Bile acids (12/02/2024 9:02 PM SR. PAYROLL PROCESSOR) Bile acids 12(H) <=10 mcmol/L [facility] ref Lab Comment: Test Performed by: [place] [address] Hostess: Maximo Duran Ph.D.; CLIA# [id number] Blood 12/02/2024 9:02 PM SR. PAYROLL PROCESSOR 12/03/2024 9:13 AM SR. PAYROLL PROCESSOR Fady Amaral MD LAB BLOOD ORDERABLES Fi nal Result Performing Organization Address [facility] Co de Phone Number EMANUELMARI ROBERT [address] [facility] [place] [address] [place] ref Lab * Folate (12/02/2024 9:02 PM SR. PAYROLL PROCESSOR) Folic acid 6.4 >=5.0 ng/mL Blood 12/02/2024 9:02 PM SR. PAYROLL PROCESSOR 12/02/2024 9:02 PM SR. PAYROLL PROCESSOR Fady Amaral MD LAB BLOOD ORDERABLES Fi nal Result Performing Organization Address City/[facility] Co de Phone Number VASQUEZ ROBERT [address] [facility] [place] [address] * Vitamin B12 (12/02/2024 9:02 PM SR. PAYROLL PROCESSOR) Vitamin B12 670 230 - 1,250 pg/mL Blood 12/02/2024 9:02 PM SR. PAYROLL PROCESSOR 12/02/2024 9:02 PM SR. PAYROLL PROCESSOR us Fady Amaral MD LAB BLOOD ORDERABLES Fi nal Result [facility] [address] [place] [address] * (ABNORMAL) Lipid panel (12/02/2024 9:02 PM SR. PAYROLL PROCESSOR) Cholesterol 197 30 - 199 mg/dL Comment: [...] revised on 2018. HDL 42 >=40 mg/dL [facility] ROBERT Comment: Interpretive Data Ages [...] 2018. LDL, calculated 133(H) <=129 mg/dL [facility] ROBERT Comment: Interpretive Data Ages [...] NCEP Expert Panel. Circulation 2004;110:227 3. Kenneth M et al. JAYLEEN Cardiol. 2019February 24;5(5):540-548. doi: 10.1001/jamacardio.2020.0013 Current Interpretive Data was last revised on 2024. Non-HDL Cholesterol 155 mg/dL [facility] ROBERT Comment: Interpretive Data Ages [...] last revised on 2018. Chol/HDL ratio 5 [facility]Z Blood 12/02/2024 9:02 PM SR. PAYROLL PROCESSOR 12/02/2024 9:02 PM SR. PAYROLL PROCESSOR Narrative [facility] - 12/02/2024 9:37 PM SR. PAYROLL PROCESSOR Has the patient been fasting for 8 hours or more?->No Fady Amaral MD LAB [place]LOOD [place] [address] [place] [address] * (ABNORMAL) Comprehensive metabolic panel (12/02/2024 9:02 PM SR. PAYROLL PROCESSOR) Pathologist [facility] Sodium 140 135 - 145 mmol/L Potassium, pl 4.6 3.3 - 4.9 mmol/L [facility] Chloride 105 97 - 110 mmol/L [facility] CO2 26 22 - 32 mmol/L [facility] Anion gap 9 2 - 15 mmol/L [facility] BUN 5(L) 6 - 25 mg/dL [facility] Creatinine 0.64 0.60 - 1.10 mg/dL [facility] Glucose 156 70 - 199 mg/dL [facility] Comment: Interpretive Data Fasting glucose >/= 126 [...] Units/L [facility] Blood 12/02/2024 9:02 PM SR. PAYROLL PROCESSOR 12/02/2024 9:02 PM SR. PAYROLL PROCESSOR Fady Amaral MD LAB BLOOD ORDERABLES Fi nal Result Performing Organization Address [facility] Co de Phone Number VASQUEZ ROBERT [address] [facility] [place] [address] * Hepatitis B core antibody, total Blood (12/02/2024 8:31 PM SR. PAYROLL PROCESSOR) Pathologist [facility] Hep B core IgG/IgM Nonreactive Nonreactive Comment:Testing performed by : [facility], [address] [place]., [address] Blood 12/02/2024 8:31 PM SR. PAYROLL PROCESSOR 12/03/2024 10:07 AM SR. PAYROLL PROCESSOR Fady Amaral MD LAB MICROBIOLOGY - GENE RAL ORDERABLES Final Result Performing Organization Address [facility] Co de Phone Number EMANUELMARI ROBERT [address] [place] [place] [address] * (ABNORMAL) Vitamin D 25 hydroxy (12/02/2024 8:31 PM SR. PAYROLL PROCESSOR) Pathologist [facility] Vitamin D 25-OH 29(L) 30 - 80 ng/mL Blood 12/02/2024 8:31 PM SR. PAYROLL PROCESSOR 12/02/2024 9:51 PM SR. PAYROLL PROCESSOR Fady Amaral MD LAB BLOOD ORDERABLES Fi nal Result Performing Organization Address [facility] Co de Phone Number VASQEUZ ROBERT [address] [facility] [place] [address] * Hepatitis B surface antibody (immune status) Blood (12/02/2024 8:31 PM SR. PAYROLL PROCESSOR) Pathologist [facility] HBsAb (immune status) Nonreactive Comment: Interpretive Data [...] revised on 20. Blood 12/02/2024 8:31 PM SR. PAYROLL PROCESSOR 12/02/2024 9:51 PM SR. PAYROLL PROCESSOR Fady Amaral MD LAB MICROBIOLOGY - GENE RAL ORDERABLES Final Result Performing Organization Address [facility] de Phone Number VASQUEZ ROBERT [address] [facility] [place] [address] * Hepatitis B Surface Antigen Blood (12/02/2024 8:31 PM SR. PAYROLL PROCESSOR) HepBsAg Nonreactive Nonreactive Blood 12/02/2024 8:31 PM SR. PAYROLL PROCESSOR 12/02/2024 9:51 PM SR. PAYROLL PROCESSOR Fady Amaral MD LAB MICROBIOLOGY - GENE RAL ORDERABLES Final Result Performing Organization Address [facility] [place] [address] [facility] [place] [address] * Vitamin B1 (12/02/2024 2:35 PM SR. PAYROLL PROCESSOR) Pathologist [facility] Thiamine (Vit B1) 139 70 - 180 nmol/L [facility] Lab Comment: ADDITIONAL INFORMATION This test was developed and its performance characteristics determined by [facility] in a manner consistent with CLIA requirements. This test has not been cleared or approved by the U.S. Food and Drug Administration. Test Performed by: [facility] [place] [id number] Hostess: Maximo Duran Ph.D.; CLIA# [id number] Blood 12/02/2024 2:35 PM SR. PAYROLL PROCESSOR 12/03/2024 11:10 AM SR. PAYROLL PROCESSOR Fady Amaral MD LAB BLOOD ORDERABLES Fi nal Result Performing Organization Address [facility] [place] [address] [address] [place] [address] [place] ref Lab * Albumin Creatinine Ratio, Urine (05/06/2024 4:47 PM CDT) Albumin Ur <12.0 mg/L Comment: Interpretive Data No reference range established. Current interpretive data was last revised 2019. Creatinine Ur 10.6 mg/dL VASQUEZ Comment: Interpretive Data No reference range established. Current interpretive data was last revised 2019. Albumin Creatinine Ratio, Ur See Comment 1 - 29 VASQUEZ Comment:Unable to calculate Urine 05/06/2024 4:47 PM CDT 05/06/2024 6:43 PM CDT Megha Orr MD LAB URINE ORDERABLES F inal Result Performing Organization Address [facility] de Phone Number VASQUEZ ROBERT [address] [address] [place] [address] * COLONOSCOPY (09/22/2023 9:12 AM SR. PAYROLL PROCESSOR) Anatomical Region Laterality Modality Other Narrative Procedure Note Omega Dhaliwal MD - 09/22/2023 9:[address] [facility] Patient Name: Lynn Ascencio Procedure Date: 09/22/2023 9:12 AM Date of : 1960 Admit Type: Outpatient Age: 62 Gender: Female Attending MD: Omega Dhaliwal M.D. Room: [facility] 3 Note Status: Structural Analysis Engineer Override Patient Profile: This is a 62 [...] procedure were verified by the physician, the glass deposition tender and the front end technician in the endoscopy suite. Mental Status Examination: [...] scope was passed under direct vision. TheColonoscope [id number] was introduced through the anus and advanced [...] 9:12 AM Procedure Code(s): --- Professional --- 01172, Colonoscopy, flexible; with removal of tumor(s), polyp(s), or other lesion(s) by snare technique --- Technical --- 31384, Colonoscopy, flexible; with removal of tumor(s), polyp(s), [...] perforation orabscess without bleeding CPT copyright 2020 [employer]. All rights reserved. The codes documented in this report are preliminary and upon professional fee coder reviewmay be revised to meet current compliance requirements. Recognized by the [employer] for promoting quality in endoscopy us Omega Dhaliwal MD ENDOSCOPY PROCEDURES Edited Resu lt - Final * MAMMOGRAPHY (08/05/2022) Historical Provider HEALTH MAINTENANCE Final Result * PAP SMEAR WITH HPV (07/24/2022) Historical Provider HEALTH MAINTENANCE Final Result * HEPATITIS C SCREENING (07/12/2022) Historical Provider HEALTH MAINTENANCE Final Result from Last 3 Months or Most Recently Relevant to Health Maintenance Insurance [facility] MEDICARE IDOR [facility] MEDICARE SOLUTIONS [employer] CHOICE MEDICARE PPO MEDICARE SOLUTIONS Advance Directives For more information, please contact: [phone] * Full Code (Latest Code Status on [...] 1:01 AM 03/03/2020 2:45 PM Care Teams Aoc Director Combat Plans Officer Relationship Specialty Start Date End Date Fady Amaral MD [address] [place] [address] [address] PCP - General Family Medicine 12/02/24 Mukund Roche MD [address] [facility] [address] [place] [address] Referring Physician Gastroenterology 12/02/24
--- OUTSIDE RECORDS SUMMARY | 2024-12-12 04:40 | XMS_ITS | Clinical Summary ---
Author Organization [facility] Address [address] [place] [address] Care Team Providers Care Polish Maker Name Role Phone Unavailable Primary Care Provider Unavailabl e Social History Tobacco Use Types Packs/Day Years Used Date Smoking Tobacco: Never Assessed Comments Unknown Sex and Gender Information Value Date Recorded Sex Assigned at Not on file Legal Sex Female 7:34 PM CDT Gender Identity Not on file Sexual Orientation Not on file Plan of Treatment Health Maintenance Due Date Last Done Comments Cervical Cancer Screening Pa p Smear (Age 30 to 64) Every 3 Years 1962 Colorectal Cancer Screening Colonoscopy (10 Years) 1962 Annual Physical 1965 Hepatitis C 1980 DTaP, Tdap and Td Vaccines ( 1 - Tdap) 1981 Cervical Cancer Screening Pa p with HPV Testing (Age 30 to 64) Every 5 Years 1992 Cervical Cancer Screening with HPV 1992 Mammogram Screening 2002 Zoster Vaccines (1 of 2) 2012 COVID-19 Vaccine (2023-2 5 season) 2024 Influenza Adult (#1) 2024 RSV Immunization or 60+ Years (1 - 1-dose 75+ series) 2037 Meningococcal B Vaccine Aged Out No l onger eligible based on patient's age to complete this topic Meningococcal Vaccine Aged Out No alee moi eligible based on patient's age to complete this topic Pneumococcal Vaccine: Pediat rics (0 to 5 Years) and At-Risk Patients (6 to 64 Years) Aged Out No longer eligible b ased on patient's age to complete this topic RSV Immunizations Under 20 Months Aged Out No longer eligible based on patient's age to complete this topic
--- NOTE | 2024-12-12 05:08 | ECG_ITS ---
Test Date: 2024-12-12 06:27:43 Measurements Intervals [place] Rate: 86 P: 82 [place]: 167 QRS: 79 QRSD: 98 T: 36 QT: 398 QTc: 478 Interpretive Statements SINUS RHYTHM WITH OCCASIONAL SUPRAVENTRICULAR PREMATURE COMPLEXES DELAYED PRECORDIAL R/S TRANSITION NONSPECIFIC ST & T-WAVE ABNORMALITY- DIFFUSE LEADS BASELINE ARTIFACT- I, II, III, AVR, AVL, AVF, V1-V6 BORDERLINE ECG No previous ECG available for comparison Electronically Signed On 12-12-2024 08:13:02 CORN SHUCKER by Ivan Thomas D.O.
--- OUTSIDE RECORDS SUMMARY | 2024-12-12 05:23 | XMS_ITS | Encounter Summary ---
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 Gender Identity Female 03/10/2020 11:13 AM CDT Sexual Orientation Straight 03/10/2020 11 :13 AM CDT documented as of this encounter Plan of Treatment Upcoming Encounters Date Type Department Care Team (Late st Contact Info) Description 03/07/2025 11:00 AM CDT Hospital Encounter [facility] [address] [place] [address] Omega Dhaliwal MD [address] [facility] [address] [place] [address] 03/07/2025 11:00 AM CDT - 03/07/2025 11:30 AM CDT Surgery [facility] [address] [place] [address] Omega Dhaliwal MD 4 [facility] [address] [place] [address] COLONOSCOPY Scheduled Procedures Name Priority Associated Diagnoses [...] on filedocumented in this encounter Care Teams Feed Project Engineer Relationship Specialty Start Date End Date Unknown, Notinfile PCP - General 02/08/20 10/21/22 Megha Orr MD PCP - General Family Practice 10/22/22 12/01/24 Fady Amaral MD 2 [facility] [address] [place] [address] PCP - General Family Medicine 12/02/24 Mukund Roche MD [address] [facility] [address] [place] [address] Referring Physician Gastroenterology 12/02/24 documented as of this encounter
--- OUTSIDE RECORDS SUMMARY | 2024-12-12 05:23 | XMS_ITS | Referral Summary ---
Author Organization [facility] Address [address] [place] [address] Care Team Providers Care Butting Saw Operator Name Role Phone Mukund Roche MD Unavailable [phone] Fady Amaral MD Primary Care Provider Encounters Date Type Department Care Team Description 12/03/2024 Telephone [facility] Primary Care at [address] [place] [address] Fady Amaral MD 12/02/2024 2:35 PM MARINE GEOLOGIST - 12/02/2024 11:59 PM MARINE GEOLOGIST Hospital Encounter [facility] [address] [place] [address] History of alcohol abuse; Alcoholic [...] to home or self care 12/02/2024 Telephone [facility] Gastroenterology at [address] [place] [phone] Omega Dhaliwal MD 12/02/2024 2:45 PM MARINE GEOLOGIST Lab [facility] Outpatient Lab at [address] [address] Vitamin D deficiency (Primary Dx) 12/02/2024 1:45 PM MARINE GEOLOGIST Office Visit [facility] Primary Care at [address] [address] Fady Amaral MD Preventative health [...] type 2 diabetes mellitus (HCC) 11/12/2024 Telephone [facility] Convenient Care at [address] [address] Jaycee Hopper PA from Last [...] 24 Active nicotine (NICODERM CQ) 21 mgIndications:[employer] 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, 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 Place 1 patch on [...] 12/03/2024 Assessment & Plan (12/03/2024 5:32 AM MARINE GEOLOGIST): - chronic, uncontrolled - has known T2DM [...] 12/02/2024 Assessment & Plan (12/03/2024 5:31 AM MARINE GEOLOGIST): - chronic condition, worse - used to [...] noted Assessment & Plan (12/02/2024 2:41 PM MARINE GEOLOGIST): - new diagnosis, reports pruritus - check bile acids given her known liver cirrhosis, order placed Preventative health care 12/02/2024 Assessment & Plan (12/03/2024 5:28 AM MARINE GEOLOGIST): - New or chronic worsening conditions: Insomnia, [...] 05/06/2024 Assessment & Plan (12/02/2024 1:58 PM MARINE GEOLOGIST): Wt Readings from Last 3 Encounters: 12/02/24 [...] 07/16/2023 Assessment & Plan (12/02/2024 2:37 PM MARINE GEOLOGIST): - hx of colon polyp - had incomplete prep on colonosocpy on 08/2023, told to repeat in 1 years - new referral placed to GI for repeat colonoscopy Neuropathy 10/22/2022 Overview (12/02/2024): Recommend podiatry follow up /monitoring regularly Assessment & Plan (12/03/2024 5:26 AM MARINE GEOLOGIST): - chronic condition, persistent/controlled - hx of [...] they will get back in with the gerentological physiotherapist. Continue use of diabetic shoes and insoles. [...] 10/22/2022 Assessment & Plan (12/03/2024 5:28 AM MARINE GEOLOGIST): Chronic. Patient remains sober since 2019 when [...] GI Assessment & Plan (12/03/2024 5:27 AM MARINE GEOLOGIST): - chronic condition, stable - no hx [...] 03/10/2020 Assessment & Plan (12/02/2024 2:12 PM MARINE GEOLOGIST): - Chronic. Not at goal - used [...] 02/29/2020 Assessment & Plan (12/02/2024 2:40 PM MARINE GEOLOGIST): - chronic condition, not at ogal - [...] 01/25/2020 Assessment & Plan (12/02/2024 2:33 PM MARINE GEOLOGIST): - chronic condition, not at goal - [...] 06/10/2018 Assessment & Plan (12/03/2024 5:27 AM MARINE GEOLOGIST): - chronic condition, not at goal - [...] 03/02/2018 Assessment & Plan (12/02/2024 1:59 PM MARINE GEOLOGIST): Blood Pressure Management BP Readings from Last [...] 03/02/2018 Assessment & Plan (12/02/2024 2:01 PM MARINE GEOLOGIST): Social History Tobacco Use Smoking Status Every [...] on file Legal Sex Female 9:26 PM MARINE GEOLOGIST Gender Identity Female 03/10/2020 11:13 AM CDT Sexual Orientation Straight 03/10/2020 11 :13 AM CDT Last Filed Vital Signs Vital Sign Reading Time Taken Comments Blood Pressure 126/80 12/02/2024 1:42 PM MARINE GEOLOGIST Pulse 78 12/02/2024 1:42 PM MARINE GEOLOGIST Temperature 36.7 C (98.1 F) 12/02/2024 1:42 PM MARINE GEOLOGIST Respiratory Rate 16 05/06/2024 4:06 PM CDT Oxygen Saturation 98% 12/02/2024 1:42 PM MARINE GEOLOGIST Inhaled Oxygen Concentration - - Weight 108.4 kg (238 lb 14.4 oz) 12/02/2024 1:42 PM MARINE GEOLOGIST Height 172.7 cm (5' 8) 12/02/2024 1:42 PM MARINE GEOLOGIST Body Mass Index 36.32 12/02/2024 1:42 PM MARINE GEOLOGIST Plan of Treatment Upcoming Encounters Date Type Department Care Team (Late st Contact Info) Description 03/07/2025 11:00 AM CDT Hospital Encounter [address] [address] Omega Dhaliwal MD 4 [facility] [address] [place] [address] 03/07/2025 11:00 AM CDT - 03/07/2025 11:30 AM CDT Surgery [address] [address] Omega Dhaliwal MD 4 [facility] [address] [place] [address] COLONOSCOPY Scheduled Procedures Name Priority Associated Diagnoses Date/Ti me COLONOSCOPY History of colonic polyps Encounter for screening colonoscopy 03/07/2025 11:00 AM CDT COLONOSCOPY Alcoholic cirrhosis of liver without ascites (CMS/HCC) (HCC) Procedures Procedure Name Priority Date/Time Associated Diagnosis Comments HEMOGLOBIN A1C Routine 12/02/2024 9:03 PM MARINE GEOLOGIST Class 2 severe obesity due to excess calories with serious comorbidity and body mass index (BMI) of 35.0 to 35.9 in adult (HCC) Pre-diabetes EGFR Routine 12/02/2024 9:02 PM MARINE GEOLOGIST Essential hypertension DIFFERENTIAL AUTO Routine 12/02/2024 9:0 2 PM MARINE GEOLOGIST Essential hypertension CBC WITH AUTO DIFFERENTIAL Routine 12/02/2024 9:02 PM MARINE GEOLOGIST Essential hypertension COMPREHENSIVE METABOLIC PANEL Routine 12/02/2024 9:02 PM MARINE GEOLOGIST Essential hypertension LIPID PANEL Routine 12/02/2024 9:02 PM MARINE GEOLOGIST Hyperlipidemia, unspecified hyperlipidemia type THYROID FUNCTION CASCADE Routine 12/02/2024 9:02 PM MARINE GEOLOGIST Hyperlipidemia, unspecified hyperlipidemia type BILE ACIDS, TOTAL Routine 12/02/2024 9:0 2 PM MARINE GEOLOGIST Alcoholic cirrhosis of liver without ascites (CMS/HCC) (HCC) Pruritic condition VITAMIN B12 Routine 12/02/2024 9:02 PM MARINE GEOLOGIST History of alcohol abuse FOLATE Routine 12/02/2024 9:02 PM MARINE GEOLOGIST History of alcohol abuse VITAMIN D 25 HYDROXY Routine 12/02/2024 8:31 PM MARINE GEOLOGIST Vitamin D deficiency HEPATITIS B SURFACE ANTIGEN Routine 12/02/2024 8:31 PM MARINE GEOLOGIST Need for hepatitis B screening test HEPATITIS B CORE ANTIBODY, TOTAL Routine 12/02/2024 8:31 PM MARINE GEOLOGIST Need for hepatitis B screening test HEPATITIS B SURFACE ANTIBODY (IMMUNE STATUS) Routine 12/02/2024 8:31 PM MARINE GEOLOGIST Need for hepatitis B screening test VITAMIN B1 Routine 12/02/2024 2:35 PM MARINE GEOLOGIST History of alcohol abuse ALBUMIN CREATININE RATIO, URINE Routine 05/06/2024 4:47 PM CDT Diabetic peripheral neuropathy associated with type 2 diabetes mellitus (CMS/HCC) (HCC) Alcoholic peripheral neuropathy (HCC) COLONOSCOPY 09/22/2023 9:12 AM MARINE GEOLOGIST HM MAMMOGRAPHY Routine 08/05/2022 PAP SMEAR WITH HPV Routine 07/24/2022 HEPATITIS C SCREENING Routine 07/12/2022 from Last 3 Months or Most Recently Relevant to Health Maintenance Results * (ABNORMAL) Hemoglobin A1c (12/02/2024 9:03 PM MARINE GEOLOGIST) Hgb A1C 8.3(H) 4.0 - 5.6 % Estimated Average Glucose 192 mg/dL [facility] ROBERT Comment: The ADA recommends reporting an estimated Average Glucose (eAG) with all Hemoglobin A1c results using the equation derived from a study of 507 normal and diabetic adults. Minority populations were underrepresented and children were not included. (Diabetes Care 31:6937-2512, 2008). The eAG is not equivalent to a fasting glucose. Blood 12/02/2024 9:03 PM MARINE GEOLOGIST 12/02/2024 9:03 PM MARINE GEOLOGIST Fady Amaral MD LAB BLOOD ORDERABLES Fi nal Result [facility] ROBERT [address] Department [place] [address] * eGFR (12/02/2024 9:02 PM MARINE GEOLOGIST) eGFR >90 >=60 mL/min/1. 73 m2 Comment: [...] last reviewed 2021. Blood 12/02/2024 9:02 PM MARINE GEOLOGIST 12/02/2024 9:02 PM MARINE GEOLOGIST Fady Amaral MD LAB BLOOD ORDERABLES Fi nal Result [facility] [address] Department [place] [address] * Differential, auto (12/02/2024 9:02 PM MARINE GEOLOGIST) Neutrophil abs 5.4 1.5 - 6.5 K/cumm Imm gran abs 0.0 0.0 - 0.1 K/cumm [facility] Lymphocyte abs 3.3 0.8 - 3.3 K/cumm [facility] Monocyte abs 0.6 0.2 - 0.8 K/cumm [facility] Eosinophil abs 0.2 0.0 - 0.5 K/cumm [facility] Basophil abs 0.1 0.0 - 0.1 K/cumm [facility] Neutrophil pct 56.7 % [facility] Comment: Interpretive Data Percent cell count reference ranges are not reported, since discordance with absolute values may lead to misinterpretation of CBC data. Current Interpretive Data was last revised on 2018. Imm gran pct 0.2 % [facility] Comment: Interpretive Data Percent cell count reference ranges are not reported, since discordance with absolute values may lead to misinterpretation of CBC data. Current Interpretive Data was last revised on 2018. Lymphocyte pct 34.1 % [facility] Comment: Interpretive Data Percent cell count reference ranges are not reported, since discordance with absolute values may lead to misinterpretation of CBC data. Current Interpretive Data was last revised on 2018. Monocyte pct 6.1 % [facility] Comment: Interpretive Data Percent cell count reference ranges are not reported, since discordance with absolute values may lead to misinterpretation of CBC data. Current Interpretive Data was last revised on 2018. Eosinophil pct 1.8 % [facility] Comment: Interpretive Data Percent cell count reference ranges are not reported, since discordance with absolute values may lead to misinterpretation of CBC data. Current Interpretive Data was last revised on 2018. Basophil pct 1.1 % [facility] Comment: Interpretive Data Percent cell count reference ranges are not reported, since discordance with absolute values may lead to misinterpretation of CBC data. Current Interpretive Data was last revised on 2018. Blood 12/02/2024 9:02 PM MARINE GEOLOGIST 12/02/2024 9:02 PM MARINE GEOLOGIST Fady Amaral MD LAB BLOOD ORDERABLES Fi nal Result Performing Organization Address City/[facility]/ZIP Co de Phone Number VASQUEZ [address] [place] [address] * Thyroid Function Harper (12/02/2024 9:02 PM MARINE GEOLOGIST) [facility] TSH 1.33 0.30 - 4.20 mcIUnit/mL Blood 12/02/2024 9:02 PM MARINE GEOLOGIST 12/02/2024 9:02 PM MARINE GEOLOGIST Fady Amaral MD LAB BLOOD ORDERABLES Fi nal Result Performing Organization Address City/[facility] Co de Phone Number VASQUEZ ROBERT [address] Department of [employer] [place], [place] [id number] * (ABNORMAL) CBC with auto differential (12/02/2024 9:02 PM MARINE GEOLOGIST) Pathologist [facility] WBC 9.6 3.8 - 9.9 K/cumm Hgb 16.0(H) 11.9 - 15.5 g/dL [facility] Hct 49.8(H) 35.6 - 45.5 % [facility] Plt 189 150 - 400 K/cumm [facility] MPV 12.8(H) 9.1 - 12.3 fL [facility] RBC 5.16 3.90 - 5.20 M/cumm [facility] MCV 96.5(H) 81.3 - 96.4 fL [facility] MCH 31.0 27.1 - 33.3 pg [facility] MCHC 32.1(L) 32.3 - 35.7 g/dL [facility] RDW CV 14.5 11.1 - 14.9 % [facility] RDW SD 51.3(H) 35.7 - 48.1 fL [facility] CH NRBC abs 0.00 0.00 - 0.01 K/cumm [facility] CH Blood 12/02/2024 9:02 PM MARINE GEOLOGIST 12/02/2024 9:02 PM MARINE GEOLOGIST Fady Amaral MD LAB BLOOD ORDERABLES Fi nal Result Performing Organization Address [facility] de Phone Number VASQUEZ ROBERT [address] [facility] [place] [address] * (ABNORMAL) Bile acids (12/02/2024 9:02 PM MARINE GEOLOGIST) Bile acids 12(H) <=10 mcmol/L [facility] Comment: Test Performed by: [place] [address] Delivery Manager: Maximo Duran Ph.D.; CLIA# [id number] Blood 12/02/2024 9:02 PM MARINE GEOLOGIST 12/03/2024 9:13 AM MARINE GEOLOGIST Fady Amaral MD LAB BLOOD ORDERABLES Fi nal Result Performing Organization Address [facility] Co de Phone Number EMANUELMARI ROBERT [address] [facility] [place] [address] [facility] * Folate (12/02/2024 9:02 PM MARINE GEOLOGIST) Folic acid 6.4 >=5.0 ng/mL Blood 12/02/2024 9:02 PM MARINE GEOLOGIST 12/02/2024 9:02 PM MARINE GEOLOGIST Fady Amaral MD LAB BLOOD ORDERABLES Fi nal Result Performing Organization Address City/[facility] Co de Phone Number VASQUEZ ROBERT [address] [facility] [place] [address] * Vitamin B12 (12/02/2024 9:02 PM MARINE GEOLOGIST) Vitamin B12 670 230 - 1,250 pg/mL Blood 12/02/2024 9:02 PM MARINE GEOLOGIST 12/02/2024 9:02 PM MARINE GEOLOGIST us Fady Amaral MD LAB BLOOD ORDERABLES Fi nal Result [facility] ROBERT [address] Department [place] [address] * (ABNORMAL) Lipid panel (12/02/2024 9:02 PM MARINE GEOLOGIST) Cholesterol 197 30 - 199 mg/dL Comment: [...] ratio 5 [facility]Z Blood 12/02/2024 9:02 PM MARINE GEOLOGIST 12/02/2024 9:02 PM MARINE GEOLOGIST Narrative [facility] - 12/02/2024 9:37 PM MARINE GEOLOGIST Has the patient been fasting for 8 hours or more?->No Fady Amaral MD LAB [place]LOOD [place] [address] Department [place] [address] * (ABNORMAL) Comprehensive metabolic panel (12/02/2024 9:02 PM MARINE GEOLOGIST) Pathologist [facility] Sodium 140 135 - 145 mmol/L Potassium, [...] Units/L [facility] Blood 12/02/2024 9:02 PM MARINE GEOLOGIST 12/02/2024 9:02 PM MARINE GEOLOGIST Fady Amaral MD LAB BLOOD ORDERABLES Fi nal Result Performing Organization Address [facility] Co de Phone Number VASQUEZ ROBERT [address] [facility] [place] [address] * Hepatitis B core antibody, total Blood (12/02/2024 8:31 PM MARINE GEOLOGIST) Pathologist [facility] Hep B core IgG/IgM Nonreactive Nonreactive Comment:Testing performed by : [facility], [address] [place]., [address] Blood 12/02/2024 8:31 PM MARINE GEOLOGIST 12/03/2024 10:07 AM MARINE GEOLOGIST Fady Amaral MD LAB MICROBIOLOGY - GENE RAL ORDERABLES Final Result Performing Organization Address [facility] Co de Phone Number EMANUELMARI ROBERT [address] [place] [address] * (ABNORMAL) Vitamin D 25 hydroxy (12/02/2024 8:31 PM MARINE GEOLOGIST) Pathologist [facility] Vitamin D 25-OH 29(L) 30 - 80 ng/mL Blood 12/02/2024 8:31 PM MARINE GEOLOGIST 12/02/2024 9:51 PM MARINE GEOLOGIST Fady Amaral MD LAB BLOOD ORDERABLES Fi nal Result Performing Organization Address [facility] Co de Phone Number VASQUEZ ROBERT [address] [facility] [place] [address] * Hepatitis B surface antibody (immune status) Blood (12/02/2024 8:31 PM MARINE GEOLOGIST) Pathologist [facility] HBsAb (immune status) Nonreactive Comment: Interpretive Data [...] revised on 20. Blood 12/02/2024 8:31 PM MARINE GEOLOGIST 12/02/2024 9:51 PM MARINE GEOLOGIST Fady Amaral MD LAB MICROBIOLOGY - GENE RAL ORDERABLES Final Result Performing Organization Address [facility] de Phone Number VASQUEZ ROBERT [address] [facility] [place] [address] * Hepatitis B Surface Antigen Blood (12/02/2024 8:31 PM MARINE GEOLOGIST) HepBsAg Nonreactive Nonreactive Blood 12/02/2024 8:31 PM MARINE GEOLOGIST 12/02/2024 9:51 PM MARINE GEOLOGIST Fady Amaral MD LAB MICROBIOLOGY - GENE RAL ORDERABLES Final Result Performing Organization Address [facility] [place] [address] [address] [facility] [place] [address] * Vitamin B1 (12/02/2024 2:35 PM MARINE GEOLOGIST) Pathologist [facility] Thiamine (Vit B1) 139 70 - 180 nmol/L [facility] Comment: ADDITIONAL INFORMATION This test was developed and its performance characteristics determined by [facility] in a manner consistent with CLIA requirements. This test has not been cleared or approved by the U.S. Food and Drug Administration. Test Performed by: [facility] [id number] Delivery Manager: Maximo Duran Ph.D.; CLIA# [id number] Blood 12/02/2024 2:35 PM MARINE GEOLOGIST 12/03/2024 11:10 AM MARINE GEOLOGIST Fady Amaral MD LAB BLOOD ORDERABLES Fi nal Result Performing Organization Address [facility] [place] [address] [address] Department [place] [address] [facility] * Albumin Creatinine Ratio, Urine [...] ORDERABLES F inal Result Performing Organization Address [facility] de Phone Number VASQUEZ ROBERT [address] [address] Department [place] [address] * COLONOSCOPY (09/22/2023 9:12 AM MARINE GEOLOGIST) Anatomical Region Laterality Modality Other Narrative Procedure Note Omega Dhaliwal MD - 09/22/2023 9:12 AM CST [facility] Patient Name: Lynn Ascencio Procedure Date: 09/22/2023 9:12 AM Date of : 1960 Admit Type: Outpatient Age: 62 Gender: Female Attending MD: Omega Dhaliwal M.D. Room: [facility] ENDOSCOPY ROOM 3 Note Status: Cycle Repairer Override Patient Profile: This is a 62 [...] procedure were verified by the physician, the layout mechanic and the aviation safety equipment technician in the endoscopy suite. Mental Status [...] scope was passed under direct vision. TheColonoscope [id number] was introduced through the anus and advanced [...] 9:12 AM Procedure Code(s): --- Professional --- 88742, Colonoscopy, flexible; with removal of tumor(s), polyp(s), or other lesion(s) by snare technique --- Technical --- 45285, Colonoscopy, flexible; with removal of tumor(s), polyp(s), [...] perforation orabscess without bleeding CPT copyright 2020 [employer]. All rights reserved. The codes documented in this report are preliminary and upon loader engineer reviewmay be revised to meet current compliance requirements. Recognized by the [employer] for promoting quality [...] Most Recently Relevant to Health Maintenance Insurance [facility] MEDICARE [place] [facility] MEDICARE SOLUTIONS [employer] CHOICE MEDICARE PPO MEDICARE SOLUTIONS Advance Directives For more information, please contact: [phone] * Full Code (Latest Code Status on [...] 1:01 AM 03/03/2020 2:45 PM Care Teams Butting Saw Operator Relationship Specialty Start Date End Date Fady Amaral MD [address] [facility] [address] [address] PCP - General Family Medicine 12/02/24 Mukund Roche MD 1 [facility] [address] [place] [address] Referring Physician Gastroenterology 12/02/24
--- OUTSIDE RECORDS SUMMARY | 2024-12-12 05:23 | XMS_ITS | Clinical Summary ---
Author Organization [facility] Address [address] [place] [address] Care Team Providers Care Business Services Associate Name Role Phone Unavailable Primary Care Provider [...]
--- OUTSIDE RECORDS SUMMARY | 2024-12-12 05:23 | XMS_ITS | Encounter Summary ---
Author Organization 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 Gender Identity Female 03/10/2020 11:13 AM CDT Sexual Orientation Straight 03/10/2020 11 :13 AM CDT documented as of this encounter Plan of Treatment Upcoming Encounters Date Type Department Care Team (Late st Contact Info) Description 03/07/2025 11:00 AM CDT Hospital Encounter [facility] [address] [place] [address] Omega Dhaliwal MD [address] [facility] [address] [place] [address] 03/07/2025 11:00 AM CDT - 03/07/2025 11:30 AM CDT Surgery [facility] [address] [place] [address] Omega Dhaliwal MD [address] [facility] [address] [address] [place] [address] COLONOSCOPY Scheduled Procedures Name Priority Associated Diagnoses [...] on filedocumented in this encounter Care Teams Armhole Feller Handstitching Machine Relationship Specialty Start Date End Date Unknown, Notinfile PCP - General 02/08/20 10/21/22 Megha Orr MD PCP - General Family Practice 10/22/22 12/01/24 Fady Amaral MD [address] [facility] [address] [place] [address] PCP - General Family Medicine 12/02/24 Mukund Roche MD 1 [facility] [address] [place] [address] Referring Physician Gastroenterology 12/02/24 documented as of this encounter
--- OUTSIDE RECORDS SUMMARY | 2024-12-12 05:23 | XMS_ITS | Encounter Summary ---
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[employer] Gender Identity Female 03/10/2020 11:13 AM CDT Sexual Orientation Straight 03/10/2020 11 :13 AM CDT documented as of this encounter Plan of Treatment Upcoming Encounters Date Type Department Care Team (Late st Contact Info) Description 03/07/2025 11:00 AM CDT Hospital Encounter [address] [address] Omega Dhaliwal MD [address] [facility] [address] 03/07/2025 11:00 AM CDT - 03/07/2025 11:30 AM CDT Surgery [address] [address]Omega Bell MD [address] [facility] [address] [place] [address] COLONOSCOPY Scheduled Procedures Name Priority Associated Diagnoses [...] on filedocumented in this encounter Care Teams Veneer Glue Spreader Relationship Specialty Start Date End Date Megha Orr MD PCP - General Family Practice 10/22/22 12/01/24 Fady Amaral MD [address] [facility] [address] [place] [address] [address] PCP - General Family Medicine 12/02/24 Mukund Roche MD 1 [facility] [address] [place] [address] Referring Physician Gastroenterology 12/02/24 documented as of this encounter
--- OUTSIDE RECORDS SUMMARY | 2024-12-12 05:23 | XMS_ITS | Encounter Summary ---
Author Organization 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 [address] [place] [address] Omega Dhaliwal MD [address] [facility] [address] [place] [address] 03/07/2025 11:00 AM CDT - 03/07/2025 11:[address] [facility] [address] [place] [address] Omega Dhaliwal MD [address] [facility] [address] [place] [address] COLONOSCOPY Scheduled Procedures Name Priority Associated Diagnoses [...] on filedocumented in this encounter Care Teams Analysis Engineer Relationship Specialty Start Date End Date Unknown, Notinfile PCP - General 02/08/20 10/21/22 Megha Orr MD PCP - General Family Practice 10/22/22 12/01/24 Fady Amaral MD [address] [facility] [address] [place] [address] PCP - General Family Medicine 12/02/24 Mukund Roche MD 1 [facility] [address] [place] [address] Referring Physician Gastroenterology 12/02/24 documented as of this encounter
--- OUTSIDE RECORDS SUMMARY | 2024-12-12 05:24 | XMS_ITS | Clinical Summary ---
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 Place 1 patch on the skin daily 28 patch 3 12/02/19 25 025 Active traZODone (DESYREL) 150 mg tabletIndications: Alcohol-induced insomnia (CMS/HCC) ([facility]) Take 1 tablet (150 mg total) by [...] hyperglycemia, without long-term current use of insulin ([facility]) Take 1 tablet (500 mg total) by [...] 12/03/2024 Assessment & Plan (12/03/2024 5:32 AM MARKETING ANALYST): - chronic, uncontrolled - has known T2DM [...] 12/02/2024 Assessment & Plan (12/03/2024 5:31 AM MARKETING ANALYST): - chronic condition, worse - used to [...] noted Assessment & Plan (12/02/2024 2:41 PM MARKETING ANALYST): - new diagnosis, reports pruritus - check bile acids given her known liver cirrhosis, order placed Preventative health care 12/02/2024 Assessment & Plan (12/03/2024 5:28 AM MARKETING ANALYST): - New or chronic worsening conditions: Insomnia, [...] 05/06/2024 Assessment & Plan (12/02/2024 1:58 PM MARKETING ANALYST): Wt Readings from Last 3 Encounters: 12/02/24 [...] 07/16/2023 Assessment & Plan (12/02/2024 2:37 PM MARKETING ANALYST): - hx of colon polyp - had incomplete prep on colonosocpy on 08/2023, told to repeat in 1 years - new referral placed to GI for repeat colonoscopy Neuropathy 10/22/2022 Overview (12/02/2024): Recommend podiatry follow up /monitoring regularly Assessment & Plan (12/03/2024 5:26 AM MARKETING ANALYST): - chronic condition, persistent/controlled - hx of [...] 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 Continue use of diabetic shoes and insoles. [...] 10/22/2022 Assessment & Plan (12/03/2024 5:28 AM MARKETING ANALYST): Chronic. Patient remains sober since 2019 when [...] GI Assessment & Plan (12/03/2024 5:27 AM MARKETING ANALYST): - chronic condition, stable - no hx [...] 03/10/2020 Assessment & Plan (12/02/2024 2:12 PM MARKETING ANALYST): - Chronic. Not at goal - used [...] 02/29/2020 Assessment & Plan (12/02/2024 2:40 PM MARKETING ANALYST): - chronic condition, not at ogal - [...] 01/25/2020 Assessment & Plan (12/02/2024 2:33 PM MARKETING ANALYST): - chronic condition, not at goal - [...] tobacco use but no prior PFTs in [facility] system. Currently without wheezing -Continue PRN albuterol Assessment & Plan (03/01/2020 1:51 PM CDT): Chart history & long standing history of tobacco use but no prior PFTs in [facility] system. Currently without wheezing -Continue PRN albuterol Assessment & Plan (02/29/2020 9:09 PM CDT): Chart history & long standing history of tobacco use but no prior PFTs in [facility] system. Currently without wheezing -Continue PRN albuterol -Will need outpatient PFTs in the future Vitamin D deficiency 06/10/2018 Assessment & Plan (12/03/2024 5:27 AM MARKETING ANALYST): - chronic condition, not at goal - [...] 03/02/2018 Assessment & Plan (12/02/2024 1:59 PM MARKETING ANALYST): Blood Pressure Management BP Readings from Last [...] 03/02/2018 Assessment & Plan (12/02/2024 2:01 PM MARKETING ANALYST): Social History Tobacco Use Smoking Status Every [...] Type Department Care Team Description 12/03/2024 Telephone [facility] at [address] [place] [address] Fady Amaral MD 12/02/2024 2:45 PM MARKETING ANALYST Lab [facility] at [address] [phone] Vitamin D deficiency (Primary Dx) 12/02/2024 2:35 PM MARKETING ANALYST - 12/02/2024 11:59 PM MARKETING ANALYST Hospital Encounter [address] [address] History of alcohol abuse; Alcoholic cirrhosis of [...] home or self care 12/02/2024 1:45 PM MARKETING ANALYST Office Visit [facility] at [address] [phone] Fady Amaral MD Preventative health [...] type 2 diabetes mellitus (HCC) 12/02/2024 Telephone [facility] at [address] [place] [phone] Omega Dhaliwal MD 11/12/2024 Telephone [facility] at [address] [phone] Jaycee Hopper PA from Last [...] on file Legal Sex Female 9:26 PM MARKETING ANALYST Gender Identity Female 03/10/2020 11:13 AM CDT Sexual Orientation Straight 03/10/2020 11 :13 AM CDT Obstetrics History Last Filed Vital Signs Vital Sign Reading Time Taken Comments Blood Pressure 126/80 12/02/2024 1:42 PM MARKETING ANALYST Pulse 78 12/02/2024 1:42 PM MARKETING ANALYST Temperature 36.7 C (98.1 F) 12/02/2024 1:42 PM MARKETING ANALYST Respiratory Rate 16 05/06/2024 4:06 PM CDT Oxygen Saturation 98% 12/02/2024 1:42 PM MARKETING ANALYST Inhaled Oxygen Concentration - - Weight 108.4 kg (238 lb 14.4 oz) 12/02/2024 1:42 PM MARKETING ANALYST Height 172.7 cm (5' 8) 12/02/2024 1:42 PM MARKETING ANALYST Body Mass Index 36.32 12/02/2024 1:42 PM MARKETING ANALYST Plan of Treatment Upcoming Encounters Date Type Department Care Team (Late st Contact Info) Description 03/07/2025 11:00 AM CDT Hospital Encounter [facility] [address] [place] [address] Omega Dhaliwal MD [address] [place] [address] 03/07/2025 11:00 AM CDT - 03/07/2025 11:30 AM CDT Surgery [facility] [address] [place] [address] Omega Dhaliwal MD [address] [place] [address] [address] [place] [address] COLONOSCOPY Scheduled Procedures Name Priority Associated Diagnoses [...] Comments HEMOGLOBIN A1C Routine 12/02/2024 9:03 PM MARKETING ANALYST Class 2 severe obesity due to excess calories with serious comorbidity and body mass index (BMI) of 35.0 to 35.9 in adult (HCC) Pre-diabetes EGFR Routine 12/02/2024 9:02 PM MARKETING ANALYST Essential hypertension DIFFERENTIAL AUTO Routine 12/02/2024 9:0 2 PM MARKETING ANALYST Essential hypertension CBC WITH AUTO DIFFERENTIAL Routine 12/02/2024 9:02 PM MARKETING ANALYST Essential hypertension COMPREHENSIVE METABOLIC PANEL Routine 12/02/2024 9:02 PM MARKETING ANALYST Essential hypertension LIPID PANEL Routine 12/02/2024 9:02 PM MARKETING ANALYST Hyperlipidemia, unspecified hyperlipidemia type THYROID FUNCTION CASCADE Routine 12/02/2024 9:02 PM MARKETING ANALYST Hyperlipidemia, unspecified hyperlipidemia type BILE ACIDS, TOTAL Routine 12/02/2024 9:0 2 PM MARKETING ANALYST Alcoholic cirrhosis of liver without ascites (CMS/HCC) (HCC) Pruritic condition VITAMIN B12 Routine 12/02/2024 9:02 PM MARKETING ANALYST History of alcohol abuse FOLATE Routine 12/02/2024 9:02 PM MARKETING ANALYST History of alcohol abuse VITAMIN D 25 HYDROXY Routine 12/02/2024 8:31 PM MARKETING ANALYST Vitamin D deficiency HEPATITIS B SURFACE ANTIGEN Routine 12/02/2024 8:31 PM MARKETING ANALYST Need for hepatitis B screening test HEPATITIS B CORE ANTIBODY, TOTAL Routine 12/02/2024 8:31 PM MARKETING ANALYST Need for hepatitis B screening test HEPATITIS B SURFACE ANTIBODY (IMMUNE STATUS) Routine 12/02/2024 8:31 PM MARKETING ANALYST Need for hepatitis B screening test VITAMIN B1 Routine 12/02/2024 2:35 PM MARKETING ANALYST History of alcohol abuse ALBUMIN CREATININE RATIO, URINE Routine 05/06/2024 4:47 PM CDT Diabetic peripheral neuropathy associated with type 2 diabetes mellitus (CMS/HCC) (HCC) Alcoholic peripheral neuropathy (HCC) COLONOSCOPY 09/22/2023 9:12 AM MARKETING ANALYST HM MAMMOGRAPHY Routine 08/05/2022 HM PAP SMEAR WITH HPV Routine 07/24/2022 HM HEPATITIS C SCREENING Routine 07/12/2022 from Last 3 Months or Most Recently Relevant to Health Maintenance Results * (ABNORMAL) Hemoglobin A1c (12/02/2024 9:03 PM MARKETING ANALYST) Hgb A1C 8.3(H) 4.0 - 5.6 % Estimated Average Glucose 192 mg/dL [facility] Comment: The ADA recommends reporting an estimated Average Glucose (eAG) with all Hemoglobin A1c results using the equation derived from a study of 507 normal and diabetic adults. Minority populations were underrepresented and children were not included. (Diabetes Care 31:5540-5126, 2008). The eAG is not equivalent to a fasting glucose. Blood 12/02/2024 9:03 PM MARKETING ANALYST 12/02/2024 9:03 PM MARKETING ANALYST us Fady Amaral MD LAB BLOOD ORDERABLES Fi nal Result [facility] [address] Department [place] [address] * eGFR (12/02/2024 9:02 PM MARKETING ANALYST) eGFR >90 >=60 mL/min/1. 73 m2 Comment: [...] last reviewed 2021. Blood 12/02/2024 9:02 PM MARKETING ANALYST 12/02/2024 9:02 PM MARKETING ANALYST Fady Amaral MD LAB BLOOD ORDERABLES nal Result [facility] [address] Department [place] [address] * Differential, auto (12/02/2024 9:02 PM MARKETING ANALYST) Neutrophil abs 5.4 1.5 - 6.5 K/cumm Imm gran abs 0.0 0.0 - 0.1 K/cumm [facility] Lymphocyte abs 3.3 0.8 - 3.3 K/cumm [facility] Monocyte abs 0.6 0.2 - 0.8 K/cumm [facility] Eosinophil abs 0.2 0.0 - 0.5 K/cumm [facility] Basophil abs 0.1 0.0 - 0.1 K/cumm [facility] Neutrophil pct 56.7 % [facility] Comment: Interpretive Data Percent cell count [...] revised on 2018. Blood 12/02/2024 9:02 PM MARKETING ANALYST 12/02/2024 9:02 PM MARKETING ANALYST Fady Amaral MD LAB BLOOD ORDERABLES Fi nal Result Performing Organization Address [facility] Co de Phone Number [facility] [address] [address] [facility] [place] [address] * Thyroid Function [place] (12/02/2024 9:02 PM MARKETING ANALYST) TSH 1.33 0.30 - 4.20 mcIUnit/mL Blood 12/02/2024 9:02 PM MARKETING ANALYST 12/02/2024 9:02 PM MARKETING ANALYST Fady Amaral MD LAB BLOOD ORDERABLES Fi nal Result Performing Organization Address [facility] Co de Phone Number [facility] [address] [address] [place] [address] * (ABNORMAL) CBC with auto differential (12/02/2024 9:02 PM MARKETING ANALYST) WBC 9.6 3.8 - 9.9 K/cumm Hgb [...] K/cumm [facility] Blood 12/02/2024 9:02 PM MARKETING ANALYST 12/02/2024 9:02 PM MARKETING ANALYST Fady Amaral MD LAB BLOOD ORDERABLES Fi nal Result Performing Organization Address City/[facility] Co de Phone Number [facility] [address] [employer] [place] [address] * (ABNORMAL) Bile acids (12/02/2024 9:02 PM MARKETING ANALYST) Bile acids 12(H) <=10 mcmol/L [facility] Comment: Test Performed by: [address] [address] Women'S Garment Fitter: Maximo Duran Ph.D.; CLIA# [id number] Blood 12/02/2024 9:02 PM MARKETING ANALYST 12/03/2024 9:13 AM MARKETING ANALYST Fady Amaral MD LAB BLOOD ORDERABLES Fi nal Result Performing Organization Address [facility] Co de Phone Number [facility] [address] [address] [facility] [place] [address] [facility] * Folate (12/02/2024 9:02 PM MARKETING ANALYST) Pathologist [facility] Folic acid 6.4 >=5.0 ng/mL Blood 12/02/2024 9:02 PM MARKETING ANALYST 12/02/2024 9:02 PM MARKETING ANALYST Fady Amaral MD LAB BLOOD ORDERABLES Fi nal Result Performing Organization Address [facility] Co de Phone Number [facility] [address] [address] [place] [address] * Vitamin B12 (12/02/2024 9:02 PM MARKETING ANALYST) Pathologist [facility] Vitamin B12 670 230 - 1,250 pg/mL Blood 12/02/2024 9:02 PM MARKETING ANALYST 12/02/2024 9:02 PM MARKETING ANALYST Fady Amaral MD LAB BLOOD ORDERABLES Fi nal Result Performing Organization Address [facility] de Phone Number [facility] [address] [address] [facility] [place] [address] * (ABNORMAL) Lipid panel (12/02/2024 9:02 PM MARKETING ANALYST) Pathologist [facility] Cholesterol 197 30 - 199 mg/dL [...] on 2018. HDL 42 >=40 mg/dL [facility] Comment: Interpretive Data Ages < [...] last revised on 2018. [facility] Blood 12/02/2024 9:02 PM MARKETING ANALYST 12/02/2024 9:02 PM MARKETING ANALYST Narrative [facility] - 12/02/2024 9:37 PM MARKETING ANALYST Has the patient been fasting for 8 hours or more?->No us Fady Amaral MD LAB BLOOD ORDERABLES Fi nal Result [facility] [address] Department [place] [address] * (ABNORMAL) Comprehensive metabolic panel (12/02/2024 9:02 PM MARKETING ANALYST) Sodium 140 135 - 145 mmol/L Potassium, pl 4.6 3.3 - 4.9 mmol/L [facility] Chloride 105 97 - 110 mmol/L [facility] CO2 26 22 - 32 mmol/L [facility] Anion gap 9 2 - 15 mmol/L [facility] BUN 5(L) 6 - 25 mg/dL [facility] Creatinine 0.64 0.60 - 1.10 mg/dL [facility] Glucose 156 70 - 199 mg/dL [facility] Comment: Interpretive Data Fasting glucose >/= [...] Units/L [facility] Blood 12/02/2024 9:02 PM MARKETING ANALYST 12/02/2024 9:02 PM MARKETING ANALYST Fady Amaral MD LAB BLOOD ORDERABLES Fi nal Result Performing Organization Address City/[facility]/ZIP Co de Phone Number [facility] [address] [address] [place] [address] * Hepatitis B core antibody, total Blood (12/02/2024 8:31 PM MARKETING ANALYST) Pathologist [facility] Hep B core IgG/IgM Nonreactive Nonreactive Comment:Testing performed by : [facility], [address] [facility], [place]., [address] Blood 12/02/2024 8:31 PM MARKETING ANALYST 12/03/2024 10:07 AM MARKETING ANALYST Fady Amaral MD LAB MICROBIOLOGY - GENE RAL ORDERABLES Final Result [facility] [address] [address] [place] [address] * (ABNORMAL) Vitamin D 25 hydroxy (12/02/2024 8:31 PM MARKETING ANALYST) Pathologist [facility] Vitamin D 25-OH 29(L) 30 - 80 ng/mL Blood 12/02/2024 8:31 PM MARKETING ANALYST 12/02/2024 9:51 PM MARKETING ANALYST Fady Amaral MD LAB BLOOD ORDERABLES Fi nal Result Performing Organization Address [facility] de Phone Number [facility] [address] [address] [facility] [place] [address] * Hepatitis B surface antibody (immune status) Blood (12/02/2024 8:31 PM MARKETING ANALYST) [facility] HBsAb (immune status) Nonreactive Comment: Interpretive Data [...] revised on 20. Blood 12/02/2024 8:31 PM MARKETING ANALYST 12/02/2024 9:51 PM MARKETING ANALYST Fady Amaral MD LAB MICROBIOLOGY - GENE RAL ORDERABLES Final Result Performing Organization Address [facility] [place] [address] [address] [facility] [place] [address] * Hepatitis B Surface Antigen Blood (12/02/2024 8:31 PM MARKETING ANALYST) [facility] HepBsAg Nonreactive Nonreactive Blood 12/02/2024 8:31 PM MARKETING ANALYST 12/02/2024 9:51 PM MARKETING ANALYST Fady Amaral MD LAB MICROBIOLOGY - GENE RAL ORDERABLES Final Result Performing Organization Address [facility] de Phone Number [facility] [place] [place] [address] [address] [facility] [place] [address] * Vitamin B1 (12/02/2024 2:35 PM MARKETING ANALYST) Pathologist [facility] Thiamine (Vit B1) 139 70 - 180 nmol/L [facility] Comment: ADDITIONAL INFORMATION This test was developed and its performance characteristics determined by [facility] in a manner consistent with CLIA requirements. This test has not been cleared or approved by the U.S. Food and Drug Administration. Test Performed by: [facility] [address] [place] [address] Women'S Garment Fitter: Maximo Duran Ph.D.; CLIA# [id number] Blood 12/02/2024 2:35 PM MARKETING ANALYST 12/03/2024 11:10 AM MARKETING ANALYST Fady Amaral MD LAB BLOOD ORDERABLES Fi nal Result Performing Organization Address [facility] Co de Phone Number [facility]AK[facility] [address] [address] [place] [address] [facility] * Albumin Creatinine Ratio, Urine (05/06/2024 4:47 PM CDT) Albumin Ur <12.0 mg/L Comment: Interpretive Data No reference range established. Current interpretive data was last revised 2019. Creatinine Ur 10.6 mg/dL [facility] Comment: Interpretive Data No reference range established. Current interpretive data was last revised 2019. Albumin Creatinine Ratio, Ur See Comment 1 - 29 [facility] Comment:Unable to calculate Urine 05/06/2024 4:47 PM CDT 05/06/2024 6:43 PM CDT Megha Orr MD LAB URINE ORDERABLES F inal Result Performing Organization Address [facility] Co de Phone Number [facility] [address] [address] [place] [address] * COLONOSCOPY (09/22/2023 9:12 AM MARKETING ANALYST) Anatomical Region Laterality Modality Other Narrative Procedure Note Omega Dhaliwal MD - 09/22/2023 9:12 AM CST [facility] Patient Name: Lynn Ascencio Procedure Date: 09/22/2023 9:12 AM Date of : 1960 Admit Type: Outpatient Age: 62 Gender: Female Attending MD: Omega Dhaliwal M.D. Room: [facility] 3 Note Status: Guest Relations Agent Override Patient Profile: This is a 62 [...] procedure were verified by the physician, the med admin and the computer support technician in the endoscopy suite. Mental Status [...] scope was passed under direct vision. TheColonoscope [id number] was introduced through the anus and advanced [...] 9:12 AM Procedure Code(s): --- Professional --- 58519, Colonoscopy, flexible; with removal of tumor(s), polyp(s), or other lesion(s) by snare technique --- Technical --- 54771, Colonoscopy, flexible; with removal of tumor(s), polyp(s), [...] perforation orabscess without bleeding CPT copyright 2020 [employer]. All rights reserved. The codes documented in this report are preliminary and upon lumber marker reviewmay be revised to meet current compliance requirements. Recognized by the [employer] for promoting quality in endoscopy Omega Dhaliwal MD ENDOSCOPY PROCEDURES Edited Resu lt - Final * MAMMOGRAPHY (08/05/2022) Historical Provider HEALTH MAINTENANCE Final Result * PAP SMEAR WITH HPV (07/24/2022) [facility] Provider HEALTH MAINTENANCE Final Result * HEPATITIS C SCREENING (07/12/2022) Historical Provider HEALTH MAINTENANCE Final Result from Last 3 Months or Most Recently Relevant to Health Maintenance Insurance [facility] MEDICARE [facility] MEDICARE [facility] Address: [address] [address] [place] [address] [employer] MEDICARE PPO MEDICARE [facility] Address: [facility] [address] [place] [address] Advance Directives For more information, please contact: [phone] * Full Code (Latest Code Status on [...] 1:01 AM 03/03/2020 2:45 PM Care Teams Geographical Historian Relationship Specialty Start Date End Date Fady Amaral MD [address] [place] [address] [address] PCP - General Family Medicine 12/02/24 Mukund Roche MD [address] [facility] [address] [place] [address] Referring Physician Gastroenterology 12/02/24
[2024-12-12] MEDS: IPRATROPIUM 0.5 MG/ALBUTEROL SULFATE 2.5 MG AMPUL.NEB 3 ML 12 ML INHALATION (05:28)
[2024-12-12 05:40] LABS: Basophils Percent Auto 0.3 % (0.2-1.2); Eosinophils Percent Auto 0.2 % (0-4.4); Hemoglobin 14.2 g/dL (12.0-15.0); Immature Granulocyte Absolute 0.02 K/mm3 (0.00-0.031); Immature Granulocyte Percent A 0.2 % (0-0.5); Lymphocytes Absolute Auto 1.47 K/mm3 (0.9-3.2); Lymphocytes Percent Auto 15.7 % (18.3-44.2); Mean Corpuscular HGB Conc 33.8 g/dl (32-36); Mean Corpuscular Hemoglobin 30.9 pg (26-34); Mean Corpuscular Volume 91.3 fl (80-100); Mean Platelet Volume 12.1 fl (7.4-10.4); Monocytes Absolute Auto 0.6 K/mm3 (0.1-0.6); Monocytes Percent Auto 6.7 % (2.6-8.5); Neutrophils Absolute Auto 7.2 K/mm3 (1.3-6.7); Neutrophils Percent Auto 76.9 % (45.5-73.1); Platelet Count Result 151 k/mm3 (150-375); Red Cell Distribution Width 14.2 % (11.5-14.5); White Blood Count 9.4 K/mm3 (4.5-10.0)
[2024-12-12 05:49] LABS: Lactic Acid Reflex 0.9 mmol/L (0.7-2.0)
[2024-12-12 05:50] LABS: Alveolar/Arterial O2 Gradient 77.8 mmHg; Base Excess ABG 0.1 mEq/l (+/-2.0); Fractional Inspired Oxygen 28 %; HCO3 ABG 24.1 mEq/l (22.0-26.0); Oxygen Content ABG 19.7 %vol (16.0-22.0); Oxygen Saturation ABG 95.9 % (95.0-100.0); PCO2 ABG 37.2 mmHg (35.0-45.0); PO2 ABG 77.9 mmHg (80.0-100.0); PO2 FiO2 Ratio Arterial Blood 2.78 %; Total Hemoglobin 14.9 g/dL (12.0-18.0); pH ABG 7.429 (7.350-7.450)
[2024-12-12 05:50] LABS: Alanine Aminotransferase 24 U/L (6-35); Albumin Level 3.7 g/dL (3.5-5.1); Alkaline Phosphatase 101 U/L (38-126); Anion Gap 9 mmol/L (4-12); Aspartate Amino Transferase 28 U/L (14-36); Bilirubin,Total 1.4 mg/dL (0.2-1.3); Calcium 8.9 mg/dL (8.4-10.2); Carbon Dioxide 23 mmol/L (22-30); Chloride 106 mmol/L (98-107); Estimated CRCL calculation 141 ml/min; Estimated Glomerular Filt Rate > 60; Glucose 145 mg/dL (65-110); Lipase 24 U/L (23-300); Magnesium 1.7 mg/dL (1.6-2.3); Phosphorus 2.7 mg/dL (2.5-4.5); Potassium 3.6 mmol/L (3.4-5.0); Sodium 138 mmol/L (137-145)
[2024-12-12 05:51] LABS: Device NASAL CANNULA; Site Drawn RIGHT BRACHIAL
[2024-12-12 05:51] LABS: Blood Urea Nitrogen < 2 mg/dL (7-17)
[2024-12-12 05:52] LABS: INR 1.2; Prothrombin Time 15.4 Seconds (11.1-14.7)
[2024-12-12 05:53] LABS: Partial Thromboplastin Time 29.4 Seconds (22.3-36.8)
[2024-12-12 05:57] LABS: D Dimer < 0.27 ug/mL (<0.48)
[2024-12-12 06:01] LABS: NT Pro B Type Natriuretic Pept 442 pg/mL (19.9-100); Troponin I < 0.012 ng/mL (0.000-0.034)
[2024-12-12 06:27] LABS: Influenza A QL RT-PCR Positive (Negative); Influenza B QL RT-PCR Negative (Negative); RSV RNA, RT-PCR Negative (Negative); SARS-CoV-2 RNA PCR Negative (Negative)
--- NOTE | 2024-12-12 06:49 | ED_ITS ---
HPI - General Adult General Chief complaint: Shortness of Breath/Dyspnea Stated complaint: sob, copd Time Seen by Provider: 12/12/24 04:53 History of Present Illness HPI narrative: This is a 64-year-old female history of COPD presenting for chest pain and shortness of breath. Patient was recently exposed to influenza in her household. Her breathing has gotten progressively worse over the last several days. She has had a productive cough with clear sputum. She denies fevers, nausea vomiting or diarrhea. No lower extremity edema or history of blood clots. Related Data Allergies Allergy/AdvReac Type Severity Reaction Status Date / Time VICOMYCIN Allergy Mild Hives / Uncoded 12/12/24 04:48 Red Face Exam 2 Narrative: APPEARANCE: No apparent distress. Head: atraumatic. EYES: EOMI, NOSE: Atraumatic NECK: Trachea midline RESPIRATORY: Hypoxic on room air, coarse lung sounds, CARDIOVASCULAR: RRR, no peripheral edema ABDOMINAL: Non-distended MUSCULOSKELETAl: No obvious deformities NEURO: Alert. Moving 4/4 extremities SKIN:: Warm, dry. Normal color PSYCHIATRIC: Normal affect Course Vital Signs Vital signs: Vital Signs Temperature 98.4 F 12/12/24 04:38 Pulse Rate 117 H 12/12/24 04:38 Respiratory Rate 24 H 12/12/24 04:38 Blood Pressure 129/75 12/12/24 04:38 Pulse Oximetry 89 L 12/12/24 04:38 Oxygen Delivery Room Air 12/12/24 04:38 Temperature 98.4 F 12/12/24 04:38 Pulse Rate 88 12/12/24 05:53 Respiratory Rate 24 H 12/12/24 05:53 Blood Pressure 158/86 H 12/12/24 04:54 Pulse Oximetry 95 12/12/24 04:54 Oxygen Delivery Nasal Cannula 12/12/24 04:53 Oxygen Flow Rate 2 12/12/24 04:53 Medical Decision Making MDM Narrative Medical decision making narrative: -Course: 64-year-old female presenting chest pain/shortness of breath. She is hypoxic on room air placed on 2 L nasal cannula. Patient positive for influenza. He started on Tamiflu. Given a breathing treatment for COPD. Chest x-ray with course interstitial markings - likely viral pneumonia. Patient will be admitted the hospital for further management of her hypoxic respiratory failure secondary to influenza infection. -DDX includes but is not limited to: Viral illness, COPD exacerbation, pneumonia Independent EKG interpretation: Rhythm [sinus], Rate [86], [place] -[normal], CT -[normal], QRS [narrow], QTC [normal], T waves -[negative for concerning inversions], ST Segments - [Negative for concerning elevations] Final interpretations: [Normal Sinus Rhythm] Vital Signs Vital Signs: Vital Signs Temperature 98.4 F 12/12/24 04:38 Pulse Rate 117 H 12/12/24 04:38 Respiratory Rate 24 H 12/12/24 04:38 Blood Pressure 129/75 12/12/24 04:38 Pulse Oximetry 89 L 12/12/24 04:38 Oxygen Delivery Room Air 12/12/24 04:38 Temperature 98.4 F 12/12/24 04:38 Pulse Rate 88 12/12/24 05:53 Respiratory Rate 24 H 12/12/24 05:53 Blood Pressure 158/86 H 12/12/24 04:54 Pulse Oximetry 95 12/12/24 04:54 Oxygen Delivery Nasal Cannula 12/12/24 04:53 Oxygen Flow Rate 2 12/12/24 04:53 Lab Data 12/12/24 05:34 12/12/24 05:34 Labs: Lab Results 12/12/24 12/12/24 Range/Units 05:34 05:47 WBC 9.4 (4.5-10.0) K/mm3 RBC 4.60 (4.2-5.4) M/mm3 Hgb 14.2 (12.0-15.0) g/dL Hct 42.0 (37.0-47.0) % MCV 91.3 (80-100) fl MCH 30.9 (26-34) pg MCHC 33.8 (32-36) g/dl RDW 14.2 (11.5-14.5) % Plt Count 151 (150-375) k/mm3 MPV 12.1 H (7.4-10.4) fl Immature Gran % (Auto) 0.2 (0-0.5) % Neut % (Auto) 76.9 H (45.5-73.1) % Lymph % (Auto) 15.7 L (18.3-44.2) % [place] % (Auto) 6.7 (2.6-8.5) % Eos % (Auto) 0.2 (0-4.4) % Baso % (Auto) 0.3 (0.2-1.2) % Lymph # (Auto) 1.47 (0.9-3.2) K/mm3 [place] # (Auto) 0.6 (0.1-0.6) K/mm3 Eos # (Auto) 0.0 (0-0.3) K/mm3 Baso # (Auto) 0.0 (0.0-0.1) K/mm3 Abs Immat Gran (auto) 0.02 (0.00-0.031) K/mm3 Absolute Neuts (auto) 7.2 H (1.3-6.7) K/mm3 Absolute Nucleated RBC 0.000 (0.0-0.012) K/mm3 Nucleated RBC % 0.0 (0.0-0.2) % PT 15.4 H (11.1-14.7) Seconds INR 1.2 APTT 29.4 (22.3-36.8) Seconds D-Dimer < 0.27 (<0.48) ug/mL Sodium 138 (137-145) mmol/L Potassium 3.6 (3.4-5.0) mmol/L Chloride 106 (98-107) mmol/L Carbon Dioxide 23 (22-30) mmol/L Anion Gap 9 (4-12) mmol/L BUN < 2 L (7-17) mg/dL Creatinine 0.44 L (0.7-1.0) mg/dL Estim Creat Clear Calc 141 ml/min Estimated GFR > 60 (59 - ) Glucose 145 H (65-110) mg/dL Lactic Acid 0.9 (0.7-2.0) mmol/L Calcium 8.9 (8.4-10.2) mg/dL Phosphorus 2.7 (2.5-4.5) mg/dL Magnesium 1.7 (1.6-2.3) mg/dL Total Bilirubin 1.4 H (0.2-1.3) mg/dL AST 28 (14-36) U/L ALT 24 (6-35) U/L Alkaline Phosphatase 101 (38-126) U/L Troponin I < 0.012 (0.000-0.034) ng/mL NT-Pro-B Natriuret Pep 442 H (19.9-100) pg/mL Total Protein 7.0 (6.3-8.2) g/dL Albumin 3.7 (3.5-5.1) g/dL Lipase 24 (23-300) U/L Influenza A (RT-PCR) Positive A (Negative) Influenza B (RT-PCR) Negative (Negative) RSV (RT-PCR) Negative (Negative) SARS-CoV-2 RNA (RT-PCR) Negative (Negative) ABG Data ABG results: 12/12/24 05:27 Puncture Site Right brachial ABG pH 7.429 ABG pCO2 37.2 ABG pO2 77.9 L ABG PO2/FiO2 Ratio 2.78 ABG HCO3 24.1 ABG O2 Saturation 95.9 ABG O2 Content 19.7 ABG Base Excess 0.1 A-a Gradient 77.8 Oxyhemoglobin 94.0 Total Hemoglobin 14.9 O2 Delivery Device Nasal cannula O2 Liters/Min 2.0 FiO2 28 Discharge Plan Discharge Clinical Impression: Acute hypoxic respiratory failure, Influenza Patient Disposition: Still a Patient Condition: Stable Patient Language: Spanish Follow-up/Referrals: Munir,Fady Claros MD [Primary Care Provider] -
[2024-12-12] MEDS: methylPREDNISolone SOD SUCC 125 MG VIAL 60 MG IV PUSH (08:30)
[2024-12-12] MEDS: OSELTAMIVIR PHOSPHATE 75 MG CAPSULE PO ×2 (08:31→21:03)
[2024-12-12] MEDS: LACTATED RINGERS 1,000 ML 125 ML IV CONT ×2 (08:31→17:41)
[2024-12-12 08:59] LABS: Add Urine Microscopic? NO; Appearance Urine Clear (Clear); Bilirubin Urine Negative (Negative); Blood Urine Negative (Negative); Color Urine Yellow (Yellow); Glucose Urine UA Negative (Negative); Ketones Urine Negative (Negative); Leukocyte Esterase Ur Negative LEU/UL (Negative); Nitrate Urine Negative (Negative); Protein Urine Negative (Negative); Specific Grav Ur 1.003 (1.001-1.035); pH Urine 6.5 (5.0-9.0)
[2024-12-12 09:21] LABS: Troponin I < 0.012 ng/mL (0.000-0.034)
--- NOTE | 2024-12-12 11:11 | P.HP_ITS ---
H&P: HPI History of Present Illness Date/Time: 12/12/24 11:11 Chief Complaint: Chest pain/ Shortness of breath Narrative: Patient is a 64 year old female that presented to the ER with chest pain and shortness of breath. Patient reports that she has not been feeling good for the past couple of weeks. Patient report that when she goes upstairs to go to the restroom she gets short of breath. Patient reports a cough with clear sputum. Patient was exposed to influenza in her household. Patient denies palpitations, headache, dizziness, nausea, or vomiting. Patient reports chronic back pain that is an 8, constant, and aching. Patient reports that she has smoked 1 pack a day for 40 years with last cigarette 5 days ago. Patient reports numbness in feet from neuropathy. Patient was 89% RA in the ER and placed on 02@2LNC with Sa02 95%. WBC 9.4, lactic acid 0.9, blood gas P02 77.9, BNP 442. Troponin negative x 2. D dimer <0.27. UA negative. Respiratory panel showed Influenza A positive. ECG SR 86 with occasional supraventricular premature complexes QTc 478. Blood culture x 2 obtained. Chest X-ray: FINDINGS The cardiomediastinal silhouette is unremarkable. Increased interstitial markings are identified bilaterally, findings suggesting mild pulmonary vascular congestion. Coarse interstitial lung markings are present, likely chronic. The remainder of the lungs are clear. IMPRESSION: Mild pulmonary vascular congestion with coarse interstitial lung (likely chronic) without focal infiltrate or effusion. Review of Systems Review of Systems: All systems reviewed & are unremarkable except as noted in HPI and below PMFSH Social History Social History Smoking status: Current every day smoker Tobacco type: cigarettes Second hand tobacco smoke exposure: No Alcohol intake: former Substance use: former Substance use type: marijuana Do You Feel Safe in your Home?: Yes Lack of Transportation: No Lack of Food: Never True Current Housing: I Have Housing Concerned About Future Housing: No Difficulty Paying Gas/Electric Bills: No Difficulty Paying for Meds: No Currently Unemployed: No Education: High School Diploma/GED Difficulty w/ Childcare or Family Care: No Spiritual care concerns: No Meds Home Medications and Allergies Home Medications ?Medication ?Instructions ?Recorded ?Confirmed ?Type albuterol sulfate 90 mcg/actuation 2 inh inhalation Q8H PRN shortness 12/12/24 12/12/24 History aerosol inhaler (Ventolin HFA) of breath or wheezing ergocalciferol (vitamin D2) 1,250 5,000 mcg PO WEEKLY PRN low vit d 12/12/24 12/12/24 History mcg (50,000 unit) capsule levels fluticasone 500 mcg-salmeterol 50 1 inh inhalation Q12H 12/12/24 12/12/24 History mcg/dose blistr powdr for inhalation (Wixela Inhub) gabapentin 300 mg capsule 300 mg PO TID 12/12/24 12/12/24 History lactulose 10 gram/15 mL oral 30 ml PO Q6H PRN laxative effect 12/12/24 12/12/24 History solution losartan 25 mg tablet 25 mg PO DAILY 12/12/24 12/12/24 History metformin 500 mg tablet,extended 500 mg PO QPM 12/12/24 12/12/24 History release 24 hr nicotine 21 mg/24 hr daily 1 patch topical Q24H 12/12/24 12/12/24 History transdermal patch pantoprazole 40 mg tablet,delayed 40 mg PO DAILY 12/12/24 12/12/24 History release rosuvastatin 10 mg tablet 10 mg PO DAILY 12/12/24 12/12/24 History trazodone 150 mg tablet 150 mg PO HS 12/12/24 12/12/24 History Allergies Allergy/AdvReac Type Severity Reaction Status Date / Time vancomycin Allergy Intermediate Hives and Verified 12/12/24 14:13 red face Vital Signs Vital Signs - 24 hr 12/12/24 04:38 12/12/24 04:52 12/12/24 04:52 Temperature 98.4 F Pulse Rate 117 H 110 H Respiratory Rate 24 H Blood Pressure 129/75 Pulse Oximetry 89 L 88 L Oxygen Delivery Room Air Room Air Oxygen Flow Rate 12/12/24 04:53 12/12/24 04:54 12/12/24 05:53 Temperature Pulse Rate 108 H 88 Respiratory Rate 20 24 H Blood Pressure 158/86 H Pulse Oximetry 95 95 Oxygen Delivery Nasal Cannula Oxygen Flow Rate 2 12/12/24 06:56 12/12/24 06:57 12/12/24 08:30 Temperature 98.0 F Pulse Rate 83 87 82 Respiratory Rate 20 20 19 Blood Pressure 145/82 H 116/96 H Pulse Oximetry 95 100 Oxygen Delivery Oxygen Flow Rate 12/12/24 08:30 12/12/24 08:30 Temperature Pulse Rate 82 Respiratory Rate Blood Pressure Pulse Oximetry 95 Oxygen Delivery Nasal Cannula Oxygen Flow Rate 2.0 Exam Const: General: no acute distress and uncomfortable Eyes: Sclera: sclerae normal Neck: Neck: supple Resp: Effort & Inspection: normal respiratory effort Auscultation: rhonchi Cardio: Rate: regular rate Rhythm: regular rhythm GI: GI Palp: Yes Soft to palpation Auscultation: normal bowel sounds Skin: General skin exam: no rashes or lesions noted Neuro: Speech: normal speech Extrem: General: no pedal edema Psych: Mental Status: mental status grossly normal Affect: normal affect H&P: Results Labs Labs: Short CBC 12/12/24 Range/Units 05:34 WBC 9.4 (4.5-10.0) K/mm3 Hgb 14.2 (12.0-15.0) g/dL Hct 42.0 (37.0-47.0) % Plt Count 151 (150-375) k/mm3 BMP 12/12/24 05:34 Sodium 138 Potassium 3.6 Chloride 106 Carbon Dioxide 23 BUN < 2 L Creatinine 0.44 L Glucose 145 H Calcium 8.9 Cardiac Enzymes 12/12/24 12/12/24 Range/Units 05:34 08:53 Troponin I < 0.012 < 0.012 (0.000-0.034) ng/mL Liver Function 12/12/24 Range/Units 05:34 Total Bilirubin 1.4 H (0.2-1.3) mg/dL AST 28 (14-36) U/L ALT 24 (6-35) U/L Alkaline Phosphatase 101 (38-126) U/L Albumin 3.7 (3.5-5.1) g/dL Urine 12/12/24 Range/Units 08:36 Urine Color Yellow (Yellow) Urine Appearance Clear (Clear) Urine pH 6.5 (5.0-9.0) Ur Specific [place] 1.003 (1.001-1.035) Urine Protein Negative (Negative) mg/dL Urine Glucose (UA) Negative (Negative) mg/dL Assessment and Plan Assessment and plan (1) Influenza A: Code(s): J10.1 - Influenza due to other identified influenza virus with other respiratory manifestations Status: Acute Assessment and Plan: * Oseltamivir 75 mg PO q 12. * Guaifenesin 600 mg PO q 12. * LR @ 75 ml/hr. * 02@2LNC. (2) Acute hypoxic respiratory failure: Code(s): J96.01 - Acute respiratory failure with hypoxia Status: Acute Assessment and Plan: * 02@2LNC with Sa02 95%. (3) COPD (chronic obstructive pulmonary disease): Code(s): J44.9 - Chronic obstructive pulmonary disease, unspecified Status: Acute Assessment and Plan: * Duoneb q 6. * 02@2LNC. (4) Diabetes: Code(s): E11.9 - Type 2 diabetes mellitus without complications Status: Acute Assessment and Plan: * Hypoglycemic protocol. * SSI. * HgbA1c 8.1%. * Monitor blood sugars. Quality VTE Prophylaxis VTE prophylaxis: mechanical ordered Hospitalist MIPS Advance Care Plan I have confirmed that the patient's Advanced Care Plan is present, code status is documented, or surrogate decision maker is listed in patient medical record.: Yes Medication Reconciliation I have utilized all available resources to obtain, update and review the patients current medications (includes all prescriptions, OTC, herbals, cannabis, and nutritional supplements).: Yes
--- NOTE | 2024-12-12 11:12 | ADMGEN ---
This patient, Lynn Armenta, was admitted to [facility] Surg Room 321-02. Patient/family oriented to hospital policies and general routines including ID bracelet, bed and alarms, visiting hours, pain management, procedures, bathroom and other care routines, personal items, smoking policy, room service/diet, and visiting hours. Information on how to activate the Rapid Response Team has been discussed. Patient/Family are encouraged to report perceived risks to care and to ask questions if they do not understand what they are told or what they should do.
[2024-12-12] MEDS: guaiFENesin 12 HR 600 MG TABCR PO ×2 (12:49→21:03)
[2024-12-12 15:10] LABS: Hemoglobin A1C 8.1 % (<5.7)
[2024-12-12 17:22] LABS: Glucose Point of Care 238 mg/dl (65-105)
[2024-12-12] MEDS: GABAPENTIN 300 MG CAPSULE PO (17:38)
[2024-12-12] MEDS: INSULIN ASPART (*BKC) 100 UNITS/ML SUB-Q ×2 (17:38→21:03)
[2024-12-12] MEDS: ERGOCALCIFEROL 50,000 UNITS CAPSULE 50000 UNITS PO (17:38)
[2024-12-12] MEDS: NICOTINE (*PBKC) 21 MG PATCH 1 PATCH TOPICAL (17:38)
[2024-12-12 20:14] LABS: Glucose Point of Care 204 mg/dl (65-105)
[2024-12-12] MEDS: IPRATROPIUM 0.5 MG/ALBUTEROL SULFATE 2.5 MG AMPUL.NEB 3 ML INHALATION (20:16)
[2024-12-12] MEDS: traZODone HCL 50 MG TABLET 150 MG PO (21:03)
[2024-12-13] VITALS (12 sets, daily range): BP systolic 116–145; BP diastolic 56–79; PULSE 65–86; RESP 18–20; TEMP 36.1–36.5; O2SAT 92–97
[2024-12-13] MEDS: IPRATROPIUM 0.5 MG/ALBUTEROL SULFATE 2.5 MG AMPUL.NEB 3 ML INHALATION ×4 (02:00→21:26)
[2024-12-13 07:52] LABS: Glucose Point of Care 166 mg/dl (65-105)
[2024-12-13 08:16] LABS: Basophils Percent Auto 0.2 % (0.2-1.2); Hematocrit 41.3 % (37.0-47.0); Hemoglobin 13.5 g/dL (12.0-15.0); Immature Granulocyte Absolute 0.08 K/mm3 (0.00-0.031); Immature Granulocyte Percent A 0.8 % (0-0.5); Lymphocytes Absolute Auto 1.26 K/mm3 (0.9-3.2); Lymphocytes Percent Auto 13.4 % (18.3-44.2); Mean Corpuscular HGB Conc 32.7 g/dl (32-36); Mean Corpuscular Volume 94.7 fl (80-100); Monocytes Absolute Auto 0.8 K/mm3 (0.1-0.6); Monocytes Percent Auto 8.5 % (2.6-8.5); Neutrophils Absolute Auto 7.3 K/mm3 (1.3-6.7); Neutrophils Percent Auto 77.1 % (45.5-73.1); Platelet Count Result 154 k/mm3 (150-375); Red Blood Count 4.36 M/mm3 (4.2-5.4); Red Cell Distribution Width 14.1 % (11.5-14.5); White Blood Count 9.4 K/mm3 (4.5-10.0)
[2024-12-13 08:30] LABS: Alanine Aminotransferase 21 U/L (6-35); Albumin Level 3.6 g/dL (3.5-5.1); Alkaline Phosphatase 98 U/L (38-126); Anion Gap 7 mmol/L (4-12); Aspartate Amino Transferase 22 U/L (14-36); Bilirubin,Total 0.9 mg/dL (0.2-1.3); Blood Urea Nitrogen 8 mg/dL (7-17); Calcium 9.3 mg/dL (8.4-10.2); Carbon Dioxide 26 mmol/L (22-30); Chloride 107 mmol/L (98-107); Estimated CRCL calculation 135 ml/min; Estimated Glomerular Filt Rate > 60; Glucose 152 mg/dL (65-110); Magnesium 2.1 mg/dL (1.6-2.3); Sodium 140 mmol/L (137-145)
[2024-12-13] MEDS: LACTATED RINGERS 1,000 ML 125 ML IV CONT (08:58)
[2024-12-13] MEDS: ROSUVASTATIN 10 MG TABLET PO (08:59)
[2024-12-13] MEDS: GABAPENTIN 300 MG CAPSULE PO ×3 (08:59→18:06)
[2024-12-13] MEDS: PANTOPRAZOLE 40 MG TABLET PO (08:59)
[2024-12-13] MEDS: LOSARTAN POTASSIUM 25 MG TABLET PO (08:59)
[2024-12-13] MEDS: guaiFENesin 12 HR 600 MG TABCR PO ×2 (08:59→20:36)
[2024-12-13] MEDS: OSELTAMIVIR PHOSPHATE 75 MG CAPSULE PO ×2 (08:59→20:36)
--- NOTE | 2024-12-13 11:12 | P.PNIM_ITS ---
Progress Note: A&P Assessment and Plan (1) Influenza A: Code(s): J10.1 - Influenza due to other identified influenza virus with other respiratory manifestations Status: Acute Assessment and Plan: * Oseltamivir 75 mg PO q 12. * Guaifenesin 600 mg PO q 12. * 02@2LNC with Sa02 92%. * Incentive spirometer. * Blood culture no growth to date. (2) Acute hypoxic respiratory failure: Code(s): J96.01 - Acute respiratory failure with hypoxia Status: Acute Assessment and Plan: * 02@2LNC with Sa02 92%. (3) COPD (chronic obstructive pulmonary disease): Code(s): J44.9 - Chronic obstructive pulmonary disease, unspecified Status: Acute Assessment and Plan: * Duoneb q 6. * 02@2LNC with Sa02 92%. (4) Diabetes: Code(s): E11.9 - Type 2 diabetes mellitus without complications Status: Acute Assessment and Plan: * Hypoglycemic protocol. * SSI. * HgbA1c 8.1%. * Monitor blood sugars. Subjective Date/time seen: 12/13/24 11:12 Interval history: Patient reports that breathing is a little better today. Patient denies palpitations, headache, dizziness, nausea, or vomiting. Appetite is good. Review of Systems Review of Systems: All systems reviewed & are unremarkable except as noted in HPI and below Exam Const: General: comfortable and no acute distress Resp: Auscultation: rhonchi and wheezes expiratory wheezes and inspiratory wheezes Cardio: Rate: regular rate Rhythm: regular rhythm GI: GI Palp: Yes Soft to palpation Auscultation: normal bowel sounds Neuro: Speech: normal speech Extrem: General: no pedal edema Psych: Mental Status: mental status grossly normal Affect: normal affect Objective Data Vital Signs Vital Signs: Vital Signs - 24 hr 12/12/24 14:00 12/12/24 16:13 12/12/24 20:00 Temperature 98.1 F Pulse Rate 100 68 Respiratory Rate 18 14 Blood Pressure 161/83 H Pulse Oximetry 95 96 95 Oxygen Delivery Nasal Cannula Nasal Cannula Oxygen Flow Rate 2 2 12/12/24 20:16 12/12/24 20:16 12/12/24 20:25 Temperature Pulse Rate 80 83 Respiratory Rate 20 20 Blood Pressure Pulse Oximetry 95 Oxygen Delivery Nasal Cannula Oxygen Flow Rate 2 12/12/24 21:27 12/13/24 02:00 12/13/24 02:10 Temperature 97.1 F L Pulse Rate 68 82 86 Respiratory Rate 14 18 18 Blood Pressure 136/63 Pulse Oximetry 95 Oxygen Delivery Oxygen Flow Rate 12/13/24 05:57 12/13/24 09:03 12/13/24 09:03 Temperature 97 F L Pulse Rate 65 76 76 Respiratory Rate 18 20 20 Blood Pressure 143/79 H Pulse Oximetry 97 92 Oxygen Delivery Nasal Cannula Oxygen Flow Rate 2 12/13/24 09:11 Temperature Pulse Rate 78 Respiratory Rate 20 Blood Pressure Pulse Oximetry Oxygen Delivery Oxygen Flow Rate Intake/Output Intake/Output: Intake & Output 12/10/24 12/11/24 12/12/24 12/13/24 23:59 23:59 23:59 23:59 Intake Total 1240 1340 Balance 1240 1340 Meds/Results Medications: Active Medications Generic Name Dose Route Start Last Admin Trade Name Freq PRN Reason Stop Dose Admin Albuterol 2 puff 12/13/24 09:05 Albuterol Sulfate (*Sp) Aerosol 1 Puff INHALATION Q8HRT PRN shortness of breath or wheezing Albuterol/Ipratropium 3 ml 12/12/24 08:00 12/13/24 09:02 Ipratropium 0.5 Mg/Albuterol Sulfate 2.5 Mg Ampul.Neb 3 Ml INHALATION 3 ml Q6HRT MARY ELLEN Administration Dextrose 12.5 gm 12/12/24 13:50 Dextrose 50% 25 Gm/50 Ml Syringe IV PUSH PRN PRN Hypoglycemia Protocol Ergocalciferol 50,000 units 12/12/24 15:05 12/12/24 17:38 Ergocalciferol 50,000 Units Capsule PO 50,000 units Torres@0900 MARY ELLEN Administration Gabapentin 300 mg 12/12/24 17:00 12/13/24 08:59 Gabapentin 300 Mg Capsule PO 300 mg TID MARY ELLEN Administration Glucagon 1 mg 12/12/24 13:50 Glucagon For Inj 1 Mg Vial IM PRN PRN Hypoglycemia Protocol Glucose 15 gm 12/12/24 13:50 Glucose Oral Gel 15 Gm Of Glucse In 37.5 Gm Tube PO PRN PRN Hypoglycemia Protocol Guaifenesin 600 mg 12/12/24 11:25 12/13/24 08:59 Guaifenesin 12 Hr 600 Mg Tabcr PO 600 mg Q12HR MARY ELLEN Administration Lactated Ringer's 1,000 mls @ 75 mls/hr 12/12/24 06:55 12/13/24 08:58 Lr - Lactated Ringers Iv IV CONT 125 mls/hr .[id number] MARY ELLEN Administration Dextrose 1,000 mls @ 100 mls/hr 12/12/24 13:50 Dextrose 5% 1,000 Ml IVPB PRN PRN Hypoglycemia Protocol Insulin Aspart 4 - 8 units 12/12/24 17:00 12/13/24 08:57 Insulin Aspart (*Bkc) 100 Units/Ml SUB-Q Not Given TIDWM MARY ELLEN Protocol Insulin Aspart 2 - 4 units 12/12/24 21:00 12/12/24 21:03 Insulin Aspart (*Bkc) 100 Units/Ml SUB-Q 2 units HS MARY ELLEN Administration Protocol Lactulose 30 gm 12/12/24 13:51 Lactulose 20 Gm/30 Ml Udc PO Q6H PRN laxative effect Losartan Potassium 25 mg 12/13/24 09:00 12/13/24 08:59 Losartan Potassium 25 Mg Tablet PO 25 mg DAILY MARY ELLEN Administration Nicotine 1 patch 12/12/24 13:45 12/12/24 17:38 Nicotine (*Pbkc) 21 Mg Patch TOPICAL 1 patch Q24H MARY ELLEN Administration Oseltamivir Phosphate 75 mg 12/12/24 09:00 12/13/24 08:59 Oseltamivir Phosphate 75 Mg Capsule PO 12/17/24 08:59 75 mg Q12HR MARY ELLEN Administration Pantoprazole Sodium 40 mg 12/13/24 09:00 12/13/24 08:59 Pantoprazole 40 Mg Tablet PO 40 mg DAILY MARY ELLEN Administration Rosuvastatin Calcium 10 mg 12/13/24 09:00 12/13/24 08:59 Rosuvastatin 10 Mg Tablet PO 10 mg DAILY MARY ELLEN Administration Trazodone HCl 150 mg 12/12/24 21:00 12/12/24 21:03 Trazodone Hcl 50 Mg Tablet PO 150 mg HS MARY ELLEN Administration Radiology Results: ITS Impressions Chest X-Ray 12/12/24 06:10 IMPRESSION: Mild pulmonary vascular congestion with coarse interstitial lung (likely chronic) without focal infiltrate or effusion. Labs Labs: Laboratory Results - last 24 hr 12/12/24 12/12/24 12/12/24 05:34 17:18 19:55 WBC RBC Hgb Hct MCV MCH MCHC RDW Plt Count MPV Immature Gran % (Auto) Neut % (Auto) Lymph % (Auto) [place] % (Auto) Eos % (Auto) Baso % (Auto) Lymph # (Auto) [place] # (Auto) Eos # (Auto) Baso # (Auto) Abs Immat Gran (auto) Absolute Neuts (auto) Absolute Nucleated RBC Nucleated RBC % Sodium Potassium Chloride Carbon Dioxide Anion Gap BUN Creatinine Estim Creat Clear Calc Estimated GFR Glucose POC Capillary Glucose 238 H 204 H Hemoglobin A1c 8.1 H Calcium Magnesium Total Bilirubin AST ALT Alkaline Phosphatase Total Protein Albumin 12/13/24 12/13/24 07:11 07:42 WBC 9.4 RBC 4.36 Hgb 13.5 Hct 41.3 MCV 94.7 MCH 31.0 MCHC 32.7 RDW 14.1 Plt Count 154 MPV 12.0 H Immature Gran % (Auto) 0.8 H Neut % (Auto) 77.1 H Lymph % (Auto) 13.4 L [place] % (Auto) 8.5 Eos % (Auto) 0.0 Baso % (Auto) 0.2 Lymph # (Auto) 1.26 [place] # (Auto) 0.8 H Eos # (Auto) 0.0 Baso # (Auto) 0.0 Abs Immat Gran (auto) 0.08 H Absolute Neuts (auto) 7.3 H Absolute Nucleated RBC 0.000 Nucleated RBC % 0.0 Sodium 140 Potassium 4.0 Chloride 107 Carbon Dioxide 26 Anion Gap 7 BUN 8 D Creatinine 0.46 L Estim Creat Clear Calc 135 Estimated GFR > 60 Glucose 152 H POC Capillary Glucose 166 H Hemoglobin A1c Calcium 9.3 Magnesium 2.1 Total Bilirubin 0.9 AST 22 ALT 21 Alkaline Phosphatase 98 Total Protein 7.0 Albumin 3.6 Quality VTE Prophylaxis VTE prophylaxis: mechanical ordered
[2024-12-13 11:42] LABS: Glucose Point of Care 150 mg/dl (65-105)
[2024-12-13] MEDS: NICOTINE (*PBKC) 21 MG PATCH 1 PATCH TOPICAL (12:58)
[2024-12-13 17:09] LABS: Glucose Point of Care 155 mg/dl (65-105)
[2024-12-13] MEDS: traZODone HCL 50 MG TABLET 150 MG PO (20:36)
[2024-12-13 20:53] LABS: Glucose Point of Care 179 mg/dl (65-105)
[2024-12-14] VITALS (13 sets, daily range): BP systolic 112–172; BP diastolic 41–86; PULSE 78–102; RESP 13–20; TEMP 36.2–36.6; O2SAT 88–95
[2024-12-14] MEDS: IPRATROPIUM 0.5 MG/ALBUTEROL SULFATE 2.5 MG AMPUL.NEB 3 ML INHALATION ×4 (02:43→21:52)
[2024-12-14] MEDS: LACTATED RINGERS 1,000 ML 125 ML IV CONT (05:00)
[2024-12-14 07:13] LABS: Basophils Percent Auto 0.4 % (0.2-1.2); Eosinophils Percent Auto 0.4 % (0-4.4); Hematocrit 38.3 % (37.0-47.0); Hemoglobin 12.5 g/dL (12.0-15.0); Immature Granulocyte Absolute 0.05 K/mm3 (0.00-0.031); Immature Granulocyte Percent A 0.6 % (0-0.5); Lymphocytes Absolute Auto 1.46 K/mm3 (0.9-3.2); Lymphocytes Percent Auto 17.7 % (18.3-44.2); Mean Corpuscular HGB Conc 32.6 g/dl (32-36); Mean Corpuscular Hemoglobin 31.2 pg (26-34); Mean Corpuscular Volume 95.5 fl (80-100); Mean Platelet Volume 11.5 fl (7.4-10.4); Monocytes Absolute Auto 0.6 K/mm3 (0.1-0.6); Monocytes Percent Auto 7.3 % (2.6-8.5); Neutrophils Absolute Auto 6.1 K/mm3 (1.3-6.7); Neutrophils Percent Auto 73.6 % (45.5-73.1); Platelet Count Result 146 k/mm3 (150-375); Red Blood Count 4.01 M/mm3 (4.2-5.4); Red Cell Distribution Width 14.2 % (11.5-14.5); White Blood Count 8.3 K/mm3 (4.5-10.0)
[2024-12-14 07:24] LABS: Alanine Aminotransferase 21 U/L (6-35); Albumin Level 3.2 g/dL (3.5-5.1); Alkaline Phosphatase 86 U/L (38-126); Anion Gap 8 mmol/L (4-12); Aspartate Amino Transferase 21 U/L (14-36); Bilirubin,Total 0.9 mg/dL (0.2-1.3); Blood Urea Nitrogen 8 mg/dL (7-17); Calcium 8.3 mg/dL (8.4-10.2); Carbon Dioxide 25 mmol/L (22-30); Chloride 105 mmol/L (98-107); Estimated CRCL calculation 131 ml/min; Estimated Glomerular Filt Rate > 60; Glucose 128 mg/dL (65-110); Magnesium 1.7 mg/dL (1.6-2.3); Potassium 3.8 mmol/L (3.4-5.0); Sodium 138 mmol/L (137-145)
[2024-12-14 08:33] LABS: Glucose Point of Care 142 mg/dl (65-105)
[2024-12-14] MEDS: ROSUVASTATIN 10 MG TABLET PO (08:52)
[2024-12-14] MEDS: GABAPENTIN 300 MG CAPSULE PO ×3 (08:52→17:25)
[2024-12-14] MEDS: OSELTAMIVIR PHOSPHATE 75 MG CAPSULE PO ×2 (08:52→21:48)
[2024-12-14] MEDS: LOSARTAN POTASSIUM 25 MG TABLET PO (08:52)
[2024-12-14] MEDS: PANTOPRAZOLE 40 MG TABLET PO (08:53)
[2024-12-14] MEDS: guaiFENesin 12 HR 600 MG TABCR PO ×2 (09:39→21:48)
--- NOTE | 2024-12-14 11:39 | P.PNIM_ITS ---
Progress Note: A&P Assessment and Plan (1) Influenza A: Code(s): J10.1 - Influenza due to other identified influenza virus with other respiratory manifestations Status: Acute Assessment and Plan: * Oseltamivir 75 mg PO q 12. * Guaifenesin 600 mg PO q 12. * 02@1LNC with Sa02 93%. * Incentive spirometer. * Blood culture no growth to date. (2) Acute hypoxic respiratory failure: Code(s): J96.01 - Acute respiratory failure with hypoxia Status: Acute Assessment and Plan: * 02@1LNC with Sa02 93%. (3) COPD (chronic obstructive pulmonary disease): Code(s): J44.9 - Chronic obstructive pulmonary disease, unspecified Status: Acute Assessment and Plan: * Duoneb q 6. * 02@1LNC with Sa02 93%. (4) Diabetes: Code(s): E11.9 - Type 2 diabetes mellitus without complications Status: Acute Assessment and Plan: * Hypoglycemic protocol. * SSI. * HgbA1c 8.1%. * Monitor blood sugars. Subjective Date/time seen: 12/14/24 11:39 Interval history: Patient reports that breathing is a little better today. Patient denies palpitations, headache, dizziness, nausea, or vomiting. Appetite is good. Patient wanting to go home but having trouble keeping oxygen up when taking oxygen off. Review of Systems Review of Systems: All systems reviewed & are unremarkable except as noted in HPI and below Exam Const: General: comfortable and no acute distress Resp: Effort & Inspection: normal respiratory effort Auscultation: rhonchi throughout Cardio: Rate: regular rate Rhythm: regular rhythm GI: GI Palp: Yes Soft to palpation Auscultation: normal bowel sounds Neuro: Speech: normal speech Extrem: General: no pedal edema Psych: Mental Status: mental status grossly normal Affect: normal affect Objective Data Vital Signs Vital Signs: Vital Signs - 24 hr 12/13/24 14:00 12/13/24 14:21 12/13/24 14:21 Temperature 97.7 F Pulse Rate 77 77 77 Respiratory Rate 18 20 20 Blood Pressure 116/56 L Pulse Oximetry 95 92 Oxygen Delivery Nasal Cannula Oxygen Flow Rate 2 12/13/24 14:32 12/13/24 21:27 12/13/24 21:37 Temperature Pulse Rate 83 78 80 Respiratory Rate 20 20 20 Blood Pressure Pulse Oximetry Oxygen Delivery Oxygen Flow Rate 12/13/24 22:00 12/14/24 02:44 12/14/24 02:50 Temperature 97.0 F L Pulse Rate 83 78 78 Respiratory Rate 20 20 20 Blood Pressure 145/69 H Pulse Oximetry 95 Oxygen Delivery Oxygen Flow Rate 12/14/24 02:50 12/14/24 05:49 12/14/24 07:36 Temperature 97.9 F Pulse Rate 80 92 80 Respiratory Rate 20 13 20 Blood Pressure 172/79 H Pulse Oximetry 94 Oxygen Delivery Oxygen Flow Rate 12/14/24 08:59 Temperature Pulse Rate Respiratory Rate Blood Pressure Pulse Oximetry 91 Oxygen Delivery Nasal Cannula Oxygen Flow Rate 2 Intake/Output Intake/Output: Intake & Output 12/11/24 12/12/24 12/13/24 12/14/24 23:59 23:59 23:59 23:59 Intake Total 1240 2820 1060 Output Total 1 Balance 1240 2819 1060 Meds/Results Medications: Active Medications Generic Name Dose Route Start Last Admin Trade Name Freq PRN Reason Stop Dose Admin Albuterol 2 puff 12/13/24 09:05 Albuterol Sulfate (*Sp) Aerosol 1 Puff INHALATION Q8HRT PRN shortness of breath or wheezing Albuterol/Ipratropium 3 ml 12/12/24 08:00 12/14/24 07:36 Ipratropium 0.5 Mg/Albuterol Sulfate 2.5 Mg Ampul.Neb 3 Ml INHALATION 3 ml Q6HRT MARY ELLEN Administration Dextrose 12.5 gm 12/12/24 13:50 Dextrose 50% 25 Gm/50 Ml Syringe IV PUSH PRN PRN Hypoglycemia Protocol Ergocalciferol 50,000 units 12/12/24 15:05 12/12/24 17:38 Ergocalciferol 50,000 Units Capsule PO 50,000 units Torres@0900 MARY ELLEN Administration Gabapentin 300 mg 12/12/24 17:00 12/14/24 08:52 Gabapentin 300 Mg Capsule PO 300 mg TID MARY ELLEN Administration Glucagon 1 mg 12/12/24 13:50 Glucagon For Inj 1 Mg Vial IM PRN PRN Hypoglycemia Protocol Glucose 15 gm 12/12/24 13:50 Glucose Oral Gel 15 Gm Of Glucse In 37.5 Gm Tube PO PRN PRN Hypoglycemia Protocol Guaifenesin 600 mg 12/12/24 11:25 12/14/24 09:39 Guaifenesin 12 Hr 600 Mg Tabcr PO 600 mg Q12HR MARY ELLEN Administration Dextrose 1,000 mls @ 100 mls/hr 12/12/24 13:50 Dextrose 5% 1,000 Ml IVPB PRN PRN Hypoglycemia Protocol Insulin Aspart 4 - 8 units 12/12/24 17:00 12/14/24 08:46 Insulin Aspart (*Bkc) 100 Units/Ml SUB-Q Not Given TIDWM MARY ELLEN Protocol Insulin Aspart 2 - 4 units 12/12/24 21:00 12/13/24 20:25 Insulin Aspart (*Bkc) 100 Units/Ml SUB-Q Not Given HS MARY ELLEN Protocol Lactulose 30 gm 12/12/24 13:51 Lactulose 20 Gm/30 Ml Udc PO Q6H PRN laxative effect Losartan Potassium 25 mg 12/13/24 09:00 12/14/24 08:52 Losartan Potassium 25 Mg Tablet PO 25 mg DAILY MARY ELLEN Administration Nicotine 1 patch 12/12/24 13:45 12/13/24 12:58 Nicotine (*Pbkc) 21 Mg Patch TOPICAL 1 patch Q24H MARY ELLEN Administration Oseltamivir Phosphate 75 mg 12/12/24 09:00 12/14/24 08:52 Oseltamivir Phosphate 75 Mg Capsule PO 12/17/24 08:59 75 mg Q12HR MARY ELLEN Administration Pantoprazole Sodium 40 mg 12/13/24 09:00 12/14/24 08:53 Pantoprazole 40 Mg Tablet PO 40 mg DAILY MARY ELLEN Administration Rosuvastatin Calcium 10 mg 12/13/24 09:00 12/14/24 08:52 Rosuvastatin 10 Mg Tablet PO 10 mg DAILY MARY ELLEN Administration Trazodone HCl 150 mg 12/12/24 21:00 12/13/24 20:36 Trazodone Hcl 50 Mg Tablet PO 150 mg HS MARY ELLEN Administration Radiology Results: ITS Impressions Chest X-Ray 12/12/24 06:10 IMPRESSION: Mild pulmonary vascular congestion with coarse interstitial lung (likely chronic) without focal infiltrate or effusion. Labs Labs: Laboratory Results - last 24 hr 12/13/24 12/13/24 12/13/24 11:30 16:39 20:23 WBC RBC Hgb Hct MCV MCH MCHC RDW Plt Count MPV Immature Gran % (Auto) Neut % (Auto) Lymph % (Auto) [place] % (Auto) Eos % (Auto) Baso % (Auto) Lymph # (Auto) [place] # (Auto) Eos # (Auto) Baso # (Auto) Abs Immat Gran (auto) Absolute Neuts (auto) Absolute Nucleated RBC Nucleated RBC % Sodium Potassium Chloride Carbon Dioxide Anion Gap BUN Creatinine Estim Creat Clear Calc Estimated GFR Glucose POC Capillary Glucose 150 H 155 H 179 H Calcium Magnesium Total Bilirubin AST ALT Alkaline Phosphatase Total Protein Albumin 12/14/24 12/14/24 06:57 08:21 WBC 8.3 RBC 4.01 L Hgb 12.5 Hct 38.3 MCV 95.5 MCH 31.2 MCHC 32.6 RDW 14.2 Plt Count 146 L MPV 11.5 H Immature Gran % (Auto) 0.6 H Neut % (Auto) 73.6 H Lymph % (Auto) 17.7 L [place] % (Auto) 7.3 Eos % (Auto) 0.4 Baso % (Auto) 0.4 Lymph # (Auto) 1.46 [place] # (Auto) 0.6 Eos # (Auto) 0.0 Baso # (Auto) 0.0 Abs Immat Gran (auto) 0.05 H Absolute Neuts (auto) 6.1 Absolute Nucleated RBC 0.000 Nucleated RBC % 0.0 Sodium 138 Potassium 3.8 Chloride 105 Carbon Dioxide 25 Anion Gap 8 BUN 8 Creatinine 0.48 L Estim Creat Clear Calc 131 Estimated GFR > 60 Glucose 128 H POC Capillary Glucose 142 H Calcium 8.3 L Magnesium 1.7 Total Bilirubin 0.9 AST 21 ALT 21 Alkaline Phosphatase 86 Total Protein 6.0 L Albumin 3.2 L Quality VTE Prophylaxis VTE prophylaxis: mechanical ordered
[2024-12-14 11:59] LABS: Glucose Point of Care 151 mg/dl (65-105)
[2024-12-14] MEDS: NICOTINE (*PBKC) 21 MG PATCH 1 PATCH TOPICAL (12:37)
[2024-12-14 17:07] LABS: Glucose Point of Care 223 mg/dl (65-105)
[2024-12-14] MEDS: INSULIN ASPART (*BKC) 100 UNITS/ML SUB-Q (17:25)
[2024-12-14] MEDS: traZODone HCL 50 MG TABLET 150 MG PO (21:48)
[2024-12-14 22:16] LABS: Glucose Point of Care 130 mg/dl (65-105)
[2024-12-15] VITALS (12 sets, daily range): BP systolic 101–150; BP diastolic 61–83; PULSE 78–99; RESP 18–22; TEMP 35.6–36.6; O2SAT 90–99
--- NOTE | 2024-12-15 05:28 | PCRCNOTE ---
Window of time for administration has passed. See next scheduled administration.
[2024-12-15 07:50] LABS: Glucose Point of Care 141 mg/dl (65-105)
[2024-12-15] MEDS: IPRATROPIUM 0.5 MG/ALBUTEROL SULFATE 2.5 MG AMPUL.NEB 3 ML INHALATION ×3 (08:30→19:30)
[2024-12-15] MEDS: guaiFENesin 12 HR 600 MG TABCR PO ×2 (08:37→20:36)
[2024-12-15] MEDS: ROSUVASTATIN 10 MG TABLET PO (08:37)
[2024-12-15] MEDS: PANTOPRAZOLE 40 MG TABLET PO (08:37)
[2024-12-15] MEDS: LOSARTAN POTASSIUM 25 MG TABLET PO (08:37)
[2024-12-15] MEDS: GABAPENTIN 300 MG CAPSULE PO ×3 (08:37→17:36)
[2024-12-15] MEDS: OSELTAMIVIR PHOSPHATE 75 MG CAPSULE PO ×2 (08:38→20:36)
[2024-12-15 09:05] LABS: Basophils Percent Auto 0.3 % (0.2-1.2); Eosinophils Percent Auto 0.5 % (0-4.4); Hematocrit 43.2 % (37.0-47.0); Hemoglobin 14.4 g/dL (12.0-15.0); Immature Granulocyte Absolute 0.05 K/mm3 (0.00-0.031); Immature Granulocyte Percent A 0.6 % (0-0.5); Lymphocytes Absolute Auto 1.85 K/mm3 (0.9-3.2); Lymphocytes Percent Auto 21.4 % (18.3-44.2); Mean Corpuscular HGB Conc 33.3 g/dl (32-36); Mean Corpuscular Hemoglobin 30.5 pg (26-34); Mean Corpuscular Volume 91.5 fl (80-100); Mean Platelet Volume 11.1 fl (7.4-10.4); Neutrophils Absolute Auto 5.7 K/mm3 (1.3-6.7); Neutrophils Percent Auto 66.2 % (45.5-73.1); Platelet Count Result 190 k/mm3 (150-375); Red Blood Count 4.72 M/mm3 (4.2-5.4); Red Cell Distribution Width 13.8 % (11.5-14.5); White Blood Count 8.6 K/mm3 (4.5-10.0)
[2024-12-15 09:21] LABS: Alanine Aminotransferase 25 U/L (6-35); Albumin Level 3.6 g/dL (3.5-5.1); Alkaline Phosphatase 94 U/L (38-126); Anion Gap 5 mmol/L (4-12); Aspartate Amino Transferase 25 U/L (14-36); Bilirubin,Total 1.4 mg/dL (0.2-1.3); Blood Urea Nitrogen 7 mg/dL (7-17); Calcium 8.5 mg/dL (8.4-10.2); Carbon Dioxide 29 mmol/L (22-30); Chloride 102 mmol/L (98-107); Estimated CRCL calculation 144 ml/min; Estimated Glomerular Filt Rate > 60; Glucose 181 mg/dL (65-110); Magnesium 1.8 mg/dL (1.6-2.3); Sodium 136 mmol/L (137-145)
--- NOTE | 2024-12-15 09:23 | P.PNIM_ITS ---
Progress Note: A&P Assessment and Plan (1) Influenza A: Code(s): J10.1 - Influenza due to other identified influenza virus with other respiratory manifestations Status: Acute Assessment and Plan: * Oseltamivir 75 mg PO q 12. * Guaifenesin 600 mg PO q 12. * 02@1LNC with Sa02 93%. * Incentive spirometer. * Blood culture no growth to date. (2) Pulmonary edema: Code(s): J81.1 - Chronic pulmonary edema Status: Acute Assessment and Plan: Echocardiogram pending BNP 2109 (3) Acute hypoxic respiratory failure: Code(s): J96.01 - Acute respiratory failure with hypoxia Status: Acute Assessment and Plan: Improving * 02@1LNC with Sa02 93%. (4) COPD (chronic obstructive pulmonary disease): Code(s): J44.9 - Chronic obstructive pulmonary disease, unspecified Status: Acute Assessment and Plan: * Duoneb q 6. * 02@1LNC with Sa02 93%. (5) Diabetes: Code(s): E11.9 - Type 2 diabetes mellitus without complications Status: Acute Assessment and Plan: * Hypoglycemic protocol. * SSI. * HgbA1c 8.1%. * Monitor blood sugars. Plan Lingular nodule. Follow-up CT chest recommended. Time Spent With Patient Time with patient: Greater than 35 minutes Subjective Date/time seen: 12/15/24 09:23 Interval history: 64 year old female that presented to the ER with chest pain and shortness of breath found to have influenza. Patient is pulmonary edema on chest x-ray she says she has no history of CHF will order echo Review of Systems Review of Systems: All systems reviewed & are unremarkable except as noted in HPI and below Exam Narrative: General: well appearing, appears stated age. HEENT: normocephalic, atraumatic. Mucous membranes moist. EOMI, PERRLA, bilateral sclera anicteric, no conjunctival injection. Neck supple without JVD, lymphadenopathy, or bruit. Respiratory: [place] ascultation bilaterally. No rales/rhonic/wheezes. Cardiovascular: Regular rate and rhythm, normal S1-S2 upon ascultation. No murmurs, rubs, or clicks. PMI is nondisplaced, capillary refill less than 3 second. Abdomen: Soft, round, no pulsatile masses, nondistended and nontender. No rebound, no guarding. No CVA tenderness, no hepatosplenomegaly. Bowel sounds present to all four quadrants. No high pitch or tinkling sounds, resonant to percussion. Extremities: No cyanosis, clubbing, or edema present. Pulses are palpable 2/2. Active ROM to all four extremities. Neuro: Alert and orientated x 4. PERRLA. Cranial nerves 2-12 intact without focal deficit. Skin: Warm, dry, and intact, without rash, erythema, or lesion. Psych: pleasant, cooperative, normal speech, normal affect, no hallucinations, no dysarthia Objective Data Vital Signs Vital Signs: Vital Signs - 24 hr 12/14/24 12:41 12/14/24 12:42 12/14/24 13:49 Temperature Pulse Rate Respiratory Rate Blood Pressure Pulse Oximetry 93 88 L 93 Oxygen Delivery Nasal Cannula Room Air Nasal Cannula Oxygen Flow Rate 1 1 12/14/24 13:49 12/14/24 14:00 12/14/24 15:41 Temperature 97.8 F Pulse Rate 94 102 H Respiratory Rate 20 19 Blood Pressure 121/41 L 112/42 L Pulse Oximetry 95 Oxygen Delivery Oxygen Flow Rate 12/14/24 21:30 12/14/24 21:54 12/14/24 21:55 Temperature 97.1 F L Pulse Rate 78 83 Respiratory Rate 20 20 Blood Pressure 147/86 H Pulse Oximetry 95 93 Oxygen Delivery Nasal Cannula Oxygen Flow Rate 1 12/15/24 05:00 12/15/24 08:31 12/15/24 08:31 Temperature 96.1 F L Pulse Rate 78 90 Respiratory Rate 20 22 H Blood Pressure 150/83 H Pulse Oximetry 95 90 Oxygen Delivery Nasal Cannula Oxygen Flow Rate 2 12/15/24 08:43 Temperature Pulse Rate 99 Respiratory Rate 20 Blood Pressure Pulse Oximetry Oxygen Delivery Oxygen Flow Rate Intake/Output Intake/Output: Intake & Output 12/12/24 12/13/24 12/14/24 12/15/24 23:59 23:59 23:59 23:59 Intake Total 1240 2820 2580 1500 Output Total 1 Balance 1240 2819 2580 1500 Meds/Results Medications: Active Medications Generic Name Dose Route Start Last Admin Trade Name Freq PRN Reason Stop Dose Admin Albuterol 2 puff 12/13/24 09:05 Albuterol Sulfate (*Sp) Aerosol 1 Puff INHALATION Q8HRT PRN shortness of breath or wheezing Albuterol/Ipratropium 3 ml 12/12/24 08:00 12/15/24 08:30 Ipratropium 0.5 Mg/Albuterol Sulfate 2.5 Mg Ampul.Neb 3 Ml INHALATION 3 ml Q6HRT MARY ELLEN Administration Dextrose 12.5 gm 12/12/24 13:50 Dextrose 50% 25 Gm/50 Ml Syringe IV PUSH PRN PRN Hypoglycemia Protocol Ergocalciferol 50,000 units 12/12/24 15:05 12/12/24 17:38 Ergocalciferol 50,000 Units Capsule PO 50,000 units Torres@0900 MARY ELLEN Administration Gabapentin 300 mg 12/12/24 17:00 12/15/24 08:37 Gabapentin 300 Mg Capsule PO 300 mg TID MARY ELLEN Administration Glucagon 1 mg 12/12/24 13:50 Glucagon For Inj 1 Mg Vial IM PRN PRN Hypoglycemia Protocol Glucose 15 gm 12/12/24 13:50 Glucose Oral Gel 15 Gm Of Glucse In 37.5 Gm Tube PO PRN PRN Hypoglycemia Protocol Guaifenesin 600 mg 12/12/24 11:25 12/15/24 08:37 Guaifenesin 12 Hr 600 Mg Tabcr PO 600 mg Q12HR MARY ELLEN Administration Dextrose 1,000 mls @ 100 mls/hr 12/12/24 13:50 Dextrose 5% 1,000 Ml IVPB PRN PRN Hypoglycemia Protocol Insulin Aspart 4 - 8 units 12/12/24 17:00 12/15/24 08:36 Insulin Aspart (*Bkc) 100 Units/Ml SUB-Q Not Given TIDWM [facility] Protocol Insulin Aspart 2 - 4 units 12/12/24 21:00 12/14/24 21:48 Insulin Aspart (*Bkc) 100 Units/Ml SUB-Q Not Given HS [facility] Protocol Lactulose 30 gm 12/12/24 13:51 Lactulose 20 Gm/30 Ml Udc PO Q6H PRN laxative effect Losartan Potassium 25 mg 12/13/24 09:00 12/15/24 08:37 Losartan Potassium 25 Mg Tablet PO 25 mg DAILY MARY ELLEN Administration Nicotine 1 patch 12/12/24 13:45 12/14/24 12:37 Nicotine (*Pbkc) 21 Mg Patch TOPICAL 1 patch Q24H MARY ELLEN Administration Oseltamivir Phosphate 75 mg 12/12/24 09:00 12/15/24 08:38 Oseltamivir Phosphate 75 Mg Capsule PO 12/17/24 08:59 75 mg Q12HR MARY ELLEN Administration Pantoprazole Sodium 40 mg 12/13/24 09:00 12/15/24 08:37 Pantoprazole 40 Mg Tablet PO 40 mg DAILY MARY ELLEN Administration Rosuvastatin Calcium 10 mg 12/13/24 09:00 12/15/24 08:37 Rosuvastatin 10 Mg Tablet PO 10 mg DAILY MARY ELLEN Administration Trazodone HCl 150 mg 12/12/24 21:00 12/14/24 21:48 Trazodone Hcl 50 Mg Tablet PO 150 mg HS MARY ELLEN Administration Radiology Results: ITS Impressions Chest X-Ray 12/12/24 06:10 IMPRESSION: Mild pulmonary vascular congestion with coarse interstitial lung (likely chronic) without focal infiltrate or effusion. Labs Labs: Laboratory Results - last 24 hr 12/14/24 12/14/24 12/14/24 11:56 17:04 21:34 WBC RBC Hgb Hct MCV MCH MCHC RDW Plt Count MPV Immature Gran % (Auto) Neut % (Auto) Lymph % (Auto) [place] % (Auto) Eos % (Auto) Baso % (Auto) Lymph # (Auto) [place] # (Auto) Eos # (Auto) Baso # (Auto) Abs Immat Gran (auto) Absolute Neuts (auto) Absolute Nucleated RBC Nucleated RBC % Sodium Potassium Chloride Carbon Dioxide Anion Gap BUN Creatinine Estim Creat Clear Calc Estimated GFR Glucose POC Capillary Glucose 151 H 223 H 130 H Calcium Magnesium Total Bilirubin AST ALT Alkaline Phosphatase Total Protein Albumin 12/15/24 12/15/24 07:46 08:54 WBC 8.6 RBC 4.72 Hgb 14.4 Hct 43.2 MCV 91.5 MCH 30.5 MCHC 33.3 RDW 13.8 Plt Count 190 MPV 11.1 H Immature Gran % (Auto) 0.6 H Neut % (Auto) 66.2 Lymph % (Auto) 21.4 [place] % (Auto) 11.0 H Eos % (Auto) 0.5 Baso % (Auto) 0.3 Lymph # (Auto) 1.85 [place] # (Auto) 1.0 H Eos # (Auto) 0.0 Baso # (Auto) 0.0 Abs Immat Gran (auto) 0.05 H Absolute Neuts (auto) 5.7 Absolute Nucleated RBC 0.000 Nucleated RBC % 0.0 Sodium 136 L Potassium 4.0 Chloride 102 Carbon Dioxide 29 Anion Gap 5 BUN 7 Creatinine 0.43 L Estim Creat Clear Calc 144 Estimated GFR > 60 Glucose 181 H POC Capillary Glucose 141 H Calcium 8.5 Magnesium 1.8 Total Bilirubin 1.4 H AST 25 ALT 25 Alkaline Phosphatase 94 Total Protein 7.0 Albumin 3.6 Quality VTE Prophylaxis VTE prophylaxis: mechanical ordered
--- NOTE | 2024-12-15 09:39 | ECHO_ITS ---
Patient Info Name: Lynn Armenta Age: 64 years : 1960 Gender: Female Ht: 68 in Wt: 240 lbs BSA: 2.33 m2 HR: 99 bpm BP: 150 / 83 mmHg Technical Quality: Poor Exam Date: 12/15/2024 12:18 PM Exam Location: Echo Lab Patient Status: Inpatient Admit Date: 12/12/2024 Staff Ordering Physician: Becca Connolly APRN Vehicle Glass Technician: Sofie Anne RDCS Attending Provider: Jennifer Lewis DO Referring Physician: Mohsen WHITTEN; Exam Type: CA echo dop color flow w con Study Info Indications - PULMONARY EDEMA Complete two-dimensional, color flow and Doppler transthoracic echocardiogram is performed with contrast to opacify the left ventricle and to improve the deliniation of the left ventricle endocardial borders. Contrast/Agitated Saline Contrast/Ag. Saline: Definity Amount: 2.00 ml Existing IV Access: Yes Reason for Poor Study: poor echocardiographic windows Summary 1. Very technically difficult study with limited views. 2. Left ventricular chamber dimension is normal. 3. Left ventricular systolic function is normal, estimated at 65-70%. 4. There is mildly increased left ventricular wall thickness. 5. Right ventricular systolic function is normal. Left Ventricle Left ventricular chamber dimension is normal. Left ventricular systolic function is normal, estimated at 65-70%. There is mildly increased left ventricular wall thickness. Right Ventricle Right ventricular chamber dimension is normal. Right ventricular systolic function is normal. Left Atria Left atrial chamber dimension is normal. Right Atria Right atrial chamber dimension is normal. Aortic Valve The aortic valve is not well visualized. There is no aortic valve regurgitation. Pulmonic Valve The pulmonic valve is not well visualized. Mitral Valve The mitral valve has not well visualized. There is trace mitral valve regurgitation. The mitral valve annulus is moderately calcified. Tricuspid Valve The tricuspid valve leaflets are not well visualized. There is trace tricuspid valve regurgitation. Pericardium/Pleural There is no pericardial effusion. Inferior Vena Cava Normal inferior vena cava with >50% collapse upon inspiration consistent with normal right atrial pressure, 3 mmHg. Aorta The aortic root size at the sinus of Valsalva is normal. Left Ventricular Outflow Tract Name Value Normal LVOT 2D LVOT Diameter 1.71 cm LVOT Doppler LVOT Peak Velocity 105.44 cm/s LVOT Peak Gradient 3 mmHg LVOT Mean Gradient 1 mmHg LVOT VTI 18.69 cm LVOT VTI/AV VTI Ratio 0.80 LVOT Stroke Volume 43.02 ml LVOT CO 7.76 l/min LVOT CI 3.33 L/min/m2 Mitral Valve Name Value Normal MV Doppler MV Decel [place] 541.13 cm/s2 MV PHT 0 s MV Area (PHT) 4.36 cm2 4.00-5.00 MV Diastolic Function MV E Peak Velocity 94.08 cm/s MV A Peak Velocity 24.22 cm/s MV E/A 3.88 MV Decel Time 0 s MV Annular TDI MV Septal e' Velocity 10.95 cm/s >=8.00 MV E/e' (Septal) 8.59 <=8.00 MV Lateral e' Velocity 14.75 cm/s >=10.00 MV E/e' (Lateral) 6.38 <=8.00 MV e' Average 12.85 MV E/e' (Average) 7.49 Tricuspid Valve Name Value Normal Estimated PAP/RSVP RA Pressure 3 mmHg <=5 TV Annular TDI TV Lateral Marli s' Velocity 13.98 cm/s 9.50-18.70 Aorta Name Value Normal Ascending Aorta Ao Root Diameter (MM) 2.79 cm Ao Root Diam Index (MM) 1.20 cm/m2 Aortic Valve Name Value Normal AV Doppler AV Peak Velocity 132.60 cm/s AV Peak Gradient 7 mmHg AV Mean Gradient 4 mmHg AV VTI 23.31 cm AV Area (Cont Eq VTI) 1.85 cm2 >=3.00 AV Area (Cont Eq Ronan) 1.83 cm2 AV V1/V2 Ratio 0.80 AV Regurgitation 2D LVOT Area 2.30 cm2 Ventricles Name Value Normal LV Dimensions 2D/MM IVS Diastolic Thickness (2D) 0.92 cm 0.60-1.00 LVID Diastole (2D) 3.93 cm 3.80-5.20 LVIW Diastolic Thickness (2D) 1.76 cm 0.60-0.90 LVID Systole (2D) 2.12 cm 2.20-3.50 LVOT Diameter 1.71 cm LV Mass (2D Cubed) 190.95 g 67.00-162.00 LV Mass Index (2D Cubed) 0.01 g/cm2 0.00-0.01 Relative Wall Thickness (2D) 0.90 LV Fractional Shortening/Ejection Fraction 2D/MM LV Fractional Shortening (2D) 40 % 27-45 LV EF (2D Teicholz) 71 % 54-74 LV Diastolic Volume (4C MOD) 81.95 ml LV EF (4C MOD) 78 % LV Diastolic Volume (2C MOD) 74.16 ml LV EF (2C MOD) 74 % LV Diastolic Volume (BP MOD) 82.06 ml 46.00-106.00 LV Diastolic Volume Index (BP MOD) 0.04 l/m2 0.03-0.06 LV Systolic Volume (BP MOD) 18.88 ml 14.00-42.00 LV Systolic Volume Index (BP MOD) 0.01 l/m2 0.01-0.02 LV EF (BP MOD) 77 % 54-74 LV Diastolic Length (4C) 7.00 cm LV Systolic Length (4C) 5.46 cm LV Stroke Volume (4C MOD) 64.24 ml Atria Name Value Normal LA Dimensions LA Dimension (MM) 4.28 cm 2.70-3.80 Report Signatures
[2024-12-15 10:50] LABS: NT Pro B Type Natriuretic Pept 2110 pg/mL (19.9-100)
[2024-12-15 11:36] LABS: Glucose Point of Care 173 mg/dl (65-105)
[2024-12-15] MEDS: LORATADINE 10 MG TABLET PO (12:14)
[2024-12-15] MEDS: PERFLUTREN LIPID MICROSPHERES 1.5 ML VIAL DILUTED TO 10 ML TOTAL VOLUME IV PUSH (12:50)
[2024-12-15] MEDS: NICOTINE (*PBKC) 21 MG PATCH 1 PATCH TOPICAL (12:57)
--- NOTE | 2024-12-15 13:30 | IVDEFINITY ---
Prior to administration of IV Definity the patient was educated on the risks and benefits of the imaging enhancing agent including potential adverse side effects. The patient verbalized understanding. Allergies were verified. No exclusion criteria were identified and at least one of the following inclusion criteria were met: 1) physician request, 2) patient technically difficult to image (per the [place] [employer] guidelines of two or more segments not discernable within the apical view), or 3) questionable left ventricular function. ?
[2024-12-15 16:38] LABS: Glucose Point of Care 153 mg/dl (65-105)
[2024-12-15] MEDS: traZODone HCL 50 MG TABLET 150 MG PO (20:36)
[2024-12-15 21:23] LABS: Glucose Point of Care 166 mg/dl (65-105)
[2024-12-16] VITALS (18 sets, daily range): BP systolic 128–141; BP diastolic 62–75; PULSE 72–114; RESP 18–20; TEMP 35.9–36.2; O2SAT 86–98
[2024-12-16] MEDS: IPRATROPIUM 0.5 MG/ALBUTEROL SULFATE 2.5 MG AMPUL.NEB 3 ML INHALATION ×4 (02:56→20:52)
[2024-12-16 07:38] LABS: Basophils Percent Auto 0.5 % (0.2-1.2); Eosinophils Absolute Auto 0.1 K/mm3 (0-0.3); Eosinophils Percent Auto 1.5 % (0-4.4); Hematocrit 39.5 % (37.0-47.0); Hemoglobin 13.1 g/dL (12.0-15.0); Immature Granulocyte Absolute 0.03 K/mm3 (0.00-0.031); Immature Granulocyte Percent A 0.4 % (0-0.5); Lymphocytes Absolute Auto 1.84 K/mm3 (0.9-3.2); Lymphocytes Percent Auto 23.4 % (18.3-44.2); Mean Corpuscular HGB Conc 33.2 g/dl (32-36); Mean Corpuscular Hemoglobin 30.7 pg (26-34); Mean Corpuscular Volume 92.5 fl (80-100); Mean Platelet Volume 11.5 fl (7.4-10.4); Monocytes Absolute Auto 0.8 K/mm3 (0.1-0.6); Monocytes Percent Auto 9.7 % (2.6-8.5); Neutrophils Absolute Auto 5.1 K/mm3 (1.3-6.7); Neutrophils Percent Auto 64.5 % (45.5-73.1); Platelet Count Result 196 k/mm3 (150-375); Red Blood Count 4.27 M/mm3 (4.2-5.4); Red Cell Distribution Width 13.7 % (11.5-14.5); White Blood Count 7.9 K/mm3 (4.5-10.0)
[2024-12-16 07:53] LABS: Alanine Aminotransferase 26 U/L (6-35); Albumin Level 3.2 g/dL (3.5-5.1); Alkaline Phosphatase 95 U/L (38-126); Anion Gap 5 mmol/L (4-12); Aspartate Amino Transferase 25 U/L (14-36); Bilirubin,Total 1.1 mg/dL (0.2-1.3); Blood Urea Nitrogen 7 mg/dL (7-17); Calcium 8.4 mg/dL (8.4-10.2); Carbon Dioxide 28 mmol/L (22-30); Chloride 106 mmol/L (98-107); Estimated CRCL calculation 128 ml/min; Estimated Glomerular Filt Rate > 60; Glucose 129 mg/dL (65-110); Magnesium 1.9 mg/dL (1.6-2.3); Potassium 3.6 mmol/L (3.4-5.0); Sodium 139 mmol/L (137-145)
[2024-12-16 08:02] LABS: Glucose Point of Care 151 mg/dl (65-105)
--- NOTE | 2024-12-16 08:34 | P.PNIM_ITS ---
Progress Note: A&P Assessment and Plan (1) Influenza A: Code(s): J10.1 - Influenza due to other identified influenza virus with other respiratory manifestations Status: Acute Assessment and Plan: * Oseltamivir 75 mg PO q 12. * Guaifenesin 600 mg PO q 12. * 02@1LNC with Sa02 93%. * Incentive spirometer. * Blood culture no growth to date. * Home O2 study (2) Pulmonary edema: Code(s): J81.1 - Chronic pulmonary edema Status: Acute Assessment and Plan: Echocardiogram EF 65-70% BNP 2109 Repeat chest x-ray (3) Acute hypoxic respiratory failure: Code(s): J96.01 - Acute respiratory failure with hypoxia Status: Acute Assessment and Plan: Improving * Once patient is weaned off oxygen she may DC (4) COPD (chronic obstructive pulmonary disease): Code(s): J44.9 - Chronic obstructive pulmonary disease, unspecified Status: Acute Assessment and Plan: * Duoneb q 6. * 02@1LNC with Sa02 93%. * Chest CT (5) Diabetes: Code(s): E11.9 - Type 2 diabetes mellitus without complications Status: Acute Assessment and Plan: * Hypoglycemic protocol. * SSI. * HgbA1c 8.1%. * Monitor blood sugars. (6) Pneumonia: Code(s): J18.9 - Pneumonia, unspecified organism Status: Acute Assessment and Plan: Pneumonia seen on chest x-ray Antibiotic started (7) Cirrhosis: Code(s): K74.60 - Unspecified cirrhosis of liver Status: Acute Assessment and Plan: Found on CT unknown if patient was aware Plan Lingular nodule. Follow-up out patient CT chest recommended. CT shows Calcified right lung nodules and calcified right hilar and mediastinal lymph nodes are consistent with old granulomatous disease. Time Spent With Patient Time with patient: Greater than 35 minutes Subjective Date/time seen: 12/16/24 08:34 Interval history: 64 year old female that presented to the ER with chest pain and shortness of breath found to have influenza. CT ordered for abnormal findings on chest x-ray, patient will have a home to oxygen study, moving towards discharge Review of Systems Review of Systems: All systems reviewed & are unremarkable except as noted in HPI and below Exam Narrative: General: well appearing, appears stated age. HEENT: normocephalic, atraumatic. Mucous membranes moist. EOMI, PERRLA, bilateral sclera anicteric, no conjunctival injection. Neck supple without JVD, lymphadenopathy, or bruit. Respiratory: [place] ascultation bilaterally. No rales/rhonic/wheezes. Cardiovascular: Regular rate and rhythm, normal S1-S2 upon ascultation. No murmurs, rubs, or clicks. PMI is nondisplaced, capillary refill less than 3 s econd. Abdomen: Soft, round, no pulsatile masses, nondistended and nontender. No rebound, no guarding. No CVA tenderness, no hepatosplenomegaly. Bowel sounds present to all four quadrants. No high pitch or tinkling sounds, resonant to percussion. Extremities: No cyanosis, clubbing, or edema present. Pulses are palpable 2/2. Active ROM to all four extremities. Neuro: Alert and orientated x 4. PERRLA. Cranial nerves 2-12 intact without focal deficit. Skin: Warm, dry, and intact, without rash, erythema, or lesion. Psych: pleasant, cooperative, normal speech, normal affect, no hallucinations, no dysarthia Objective Data Vital Signs Vital Signs: Vital Signs - 24 hr 12/15/24 08:37 12/15/24 08:43 12/15/24 13:18 Temperature Pulse Rate 94 99 92 Respiratory Rate 20 18 Blood Pressure 101/61 Pulse Oximetry 99 Oxygen Delivery Oxygen Flow Rate 12/15/24 13:30 12/15/24 13:47 12/15/24 15:55 Temperature 97.1 F L Pulse Rate 97 96 Respiratory Rate 20 20 Blood Pressure 123/68 Pulse Oximetry 97 94 Oxygen Delivery Nasal Cannula Oxygen Flow Rate 0.5 12/15/24 19:30 12/15/24 19:30 12/15/24 19:37 Temperature Pulse Rate 86 83 Respiratory Rate 20 20 Blood Pressure Pulse Oximetry 94 Oxygen Delivery Nasal Cannula Oxygen Flow Rate 1 12/15/24 20:00 12/15/24 20:00 12/16/24 02:57 Temperature 97.9 F Pulse Rate 89 84 Respiratory Rate 20 20 Blood Pressure 134/79 Pulse Oximetry 94 94 Oxygen Delivery Nasal Cannula Oxygen Flow Rate 1 12/16/24 03:09 12/16/24 05:00 12/16/24 07:28 Temperature 96.6 F L Pulse Rate 85 72 Respiratory Rate 20 20 Blood Pressure 128/62 Pulse Oximetry 98 94 Oxygen Delivery Nasal Cannula Oxygen Flow Rate 1 12/16/24 07:28 Temperature Pulse Rate 86 Respiratory Rate 20 Blood Pressure Pulse Oximetry Oxygen Delivery Oxygen Flow Rate Intake/Output Intake/Output: Intake & Output 12/13/24 12/14/24 12/15/24 12/16/24 23:59 23:59 23:59 23:59 Intake Total 2820 2580 2220 1197 Output Total 1 Balance 2819 2580 2220 1197 Meds/Results Medications: Active Medications Generic Name Dose Route Start Last Admin Trade Name Freq PRN Reason Stop Dose Admin Albuterol 2 puff 12/13/24 09:05 Albuterol Sulfate (*Sp) Aerosol 1 Puff INHALATION Q8HRT PRN shortness of breath or wheezing Albuterol/Ipratropium 3 ml 12/12/24 08:00 12/16/24 07:27 Ipratropium 0.5 Mg/Albuterol Sulfate 2.5 Mg Ampul.Neb 3 Ml INHALATION 3 ml Q6HRT MARY ELLEN Administration Dextrose 12.5 gm 12/12/24 13:50 Dextrose 50% 25 Gm/50 Ml Syringe IV PUSH PRN PRN Hypoglycemia Protocol Ergocalciferol 50,000 units 12/12/24 15:05 12/12/24 17:38 Ergocalciferol 50,000 Units Capsule PO 50,000 units Torres@0900 MARY ELLEN Administration Gabapentin 300 mg 12/12/24 17:00 12/15/24 17:36 Gabapentin 300 Mg Capsule PO 300 mg TID MARY ELLEN Administration Glucagon 1 mg 12/12/24 13:50 Glucagon For Inj 1 Mg Vial IM PRN PRN Hypoglycemia Protocol Glucose 15 gm 12/12/24 13:50 Glucose Oral Gel 15 Gm Of Glucse In 37.5 Gm Tube PO PRN PRN Hypoglycemia Protocol Guaifenesin 600 mg 12/12/24 11:25 12/15/24 20:36 Guaifenesin 12 Hr 600 Mg Tabcr PO 600 mg Q12HR MARY ELLEN Administration Dextrose 1,000 mls @ 100 mls/hr 12/12/24 13:50 Dextrose 5% 1,000 Ml IVPB PRN PRN Hypoglycemia Protocol Insulin Aspart 4 - 8 units 12/12/24 17:00 12/15/24 17:36 Insulin Aspart (*Bkc) 100 Units/Ml SUB-Q Not Given TIDWM [facility] Protocol Insulin Aspart 2 - 4 units 12/12/24 21:00 12/15/24 21:27 Insulin Aspart (*Bkc) 100 Units/Ml SUB-Q Not Given HS [facility] Protocol Lactulose 30 gm 12/12/24 13:51 Lactulose 20 Gm/30 Ml Udc PO Q6H PRN laxative effect Loratadine 10 mg 12/15/24 10:00 12/15/24 12:14 Loratadine 10 Mg Tablet PO 10 mg QAM MARY ELLEN Administration Losartan Potassium 25 mg 12/13/24 09:00 12/15/24 08:37 Losartan Potassium 25 Mg Tablet PO 25 mg DAILY MARY ELLEN Administration Nicotine 1 patch 12/12/24 13:45 12/15/24 12:57 Nicotine (*Pbkc) 21 Mg Patch TOPICAL 1 patch Q24H MARY ELLEN Administration Oseltamivir Phosphate 75 mg 12/12/24 09:00 12/15/24 20:36 Oseltamivir Phosphate 75 Mg Capsule PO 12/17/24 08:59 75 mg Q12HR MARY ELLEN Administration Pantoprazole Sodium 40 mg 12/13/24 09:00 12/15/24 08:37 Pantoprazole 40 Mg Tablet PO 40 mg DAILY MARY ELLEN Administration Rosuvastatin Calcium 10 mg 12/13/24 09:00 12/15/24 08:37 Rosuvastatin 10 Mg Tablet PO 10 mg DAILY MARY ELLEN Administration Trazodone HCl 150 mg 12/12/24 21:00 12/15/24 20:36 Trazodone Hcl 50 Mg Tablet PO 150 mg HS MARY ELLEN Administration Radiology Results: ITS Impressions Chest X-Ray 12/15/24 10:05 Impression: 1: Lingular nodule. Follow-up CT chest recommended. Labs Labs: Laboratory Results - last 24 hr 12/15/24 12/15/24 12/15/24 08:54 11:32 16:36 WBC 8.6 RBC 4.72 Hgb 14.4 Hct 43.2 MCV 91.5 MCH 30.5 MCHC 33.3 RDW 13.8 Plt Count 190 MPV 11.1 H Immature Gran % (Auto) 0.6 H Neut % (Auto) 66.2 Lymph % (Auto) 21.4 [place] % (Auto) 11.0 H Eos % (Auto) 0.5 Baso % (Auto) 0.3 Lymph # (Auto) 1.85 [place] # (Auto) 1.0 H Eos # (Auto) 0.0 Baso # (Auto) 0.0 Abs Immat Gran (auto) 0.05 H Absolute Neuts (auto) 5.7 Absolute Nucleated RBC 0.000 Nucleated RBC % 0.0 Sodium 136 L Potassium 4.0 Chloride 102 Carbon Dioxide 29 Anion Gap 5 BUN 7 Creatinine 0.43 L Estim Creat Clear Calc 144 Estimated GFR > 60 Glucose 181 H POC Capillary Glucose 173 H 153 H Calcium 8.5 Magnesium 1.8 Total Bilirubin 1.4 H AST 25 ALT 25 Alkaline Phosphatase 94 NT-Pro-B Natriuret Pep 2110 H Total Protein 7.0 Albumin 3.6 12/15/24 12/16/24 12/16/24 20:07 06:52 07:42 WBC 7.9 RBC 4.27 Hgb 13.1 Hct 39.5 MCV 92.5 MCH 30.7 MCHC 33.2 RDW 13.7 Plt Count 196 MPV 11.5 H Immature Gran % (Auto) 0.4 Neut % (Auto) 64.5 Lymph % (Auto) 23.4 [place] % (Auto) 9.7 H Eos % (Auto) 1.5 Baso % (Auto) 0.5 Lymph # (Auto) 1.84 [place] # (Auto) 0.8 H Eos # (Auto) 0.1 Baso # (Auto) 0.0 Abs Immat Gran (auto) 0.03 Absolute Neuts (auto) 5.1 Absolute Nucleated RBC 0.000 Nucleated RBC % 0.0 Sodium 139 Potassium 3.6 Chloride 106 Carbon Dioxide 28 Anion Gap 5 BUN 7 Creatinine 0.49 L Estim Creat Clear Calc 128 Estimated GFR > 60 Glucose 129 H POC Capillary Glucose 166 H 151 H Calcium 8.4 Magnesium 1.9 Total Bilirubin 1.1 AST 25 ALT 26 Alkaline Phosphatase 95 NT-Pro-B Natriuret Pep Total Protein 6.0 L Albumin 3.2 L Quality VTE Prophylaxis VTE prophylaxis: mechanical ordered
[2024-12-16] MEDS: LOSARTAN POTASSIUM 25 MG TABLET PO (08:35)
[2024-12-16] MEDS: LORATADINE 10 MG TABLET PO (08:35)
[2024-12-16] MEDS: GABAPENTIN 300 MG CAPSULE PO ×3 (08:35→16:46)
[2024-12-16] MEDS: guaiFENesin 12 HR 600 MG TABCR PO (08:35)
[2024-12-16] MEDS: ROSUVASTATIN 10 MG TABLET PO (08:35)
[2024-12-16] MEDS: OSELTAMIVIR PHOSPHATE 75 MG CAPSULE PO ×2 (08:35→21:39)
[2024-12-16] MEDS: PANTOPRAZOLE 40 MG TABLET PO (08:35)
[2024-12-16 11:43] LABS: Glucose Point of Care 136 mg/dl (65-105)
[2024-12-16] MEDS: NICOTINE (*PBKC) 21 MG PATCH 1 PATCH TOPICAL (13:01)
[2024-12-16] MEDS: AZITHROMYCIN 500 MG/NS 250 ML 500 MG/250 ML BAG 250 MG IVPB (16:45)
[2024-12-16 16:48] LABS: Glucose Point of Care 113 mg/dl (65-105)
[2024-12-16 21:35] LABS: Glucose Point of Care 130 mg/dl (65-105)
[2024-12-16] MEDS: guaiFENesin 12 HR 600 MG TABCR 1200 MG PO (21:39)
[2024-12-16] MEDS: traZODone HCL 50 MG TABLET 150 MG PO (21:39)
[2024-12-17 04:30] VITALS: BP 133/57; PULSE 76; RESP 16; TEMP 36.3; O2SAT 93
[2024-12-17 08:12] LABS: Glucose Point of Care 147 mg/dl (65-105)
[2024-12-17] MEDS: IPRATROPIUM 0.5 MG/ALBUTEROL SULFATE 2.5 MG AMPUL.NEB 3 ML INHALATION (09:05)
[2024-12-17 09:07] VITALS: PULSE 76; RESP 20; O2SAT 93
[2024-12-17 09:15] VITALS: PULSE 98; RESP 20
[2024-12-17] MEDS: PANTOPRAZOLE 40 MG TABLET PO (09:20)
[2024-12-17] MEDS: GABAPENTIN 300 MG CAPSULE PO (09:20)
[2024-12-17] MEDS: LOSARTAN POTASSIUM 25 MG TABLET PO (09:20)
[2024-12-17] MEDS: LORATADINE 10 MG TABLET PO (09:20)
[2024-12-17] MEDS: ROSUVASTATIN 10 MG TABLET PO (09:20)
[2024-12-17] MEDS: guaiFENesin 12 HR 600 MG TABCR 1200 MG PO (09:20)
--- NOTE | 2024-12-17 09:28 | P.DS_ITS ---
DS: Admitting Diagnosis Discharge Date 12/17/2023 Admitting Diagnosis Influenza DS: Discharge Diagnosis Discharge Diagnosis (1) Pneumonia: Code(s): J18.9 - Pneumonia, unspecified organism Status: Acute Assessment and Plan: Pneumonia seen on chest x-ray IV antibiotics transition to oral (2) Influenza A: Code(s): J10.1 - Influenza due to other identified influenza virus with other respiratory manifestations Status: Acute Assessment and Plan: * Oseltamivir 75 mg PO q 12. * Guaifenesin 600 mg PO q 12. * 1LNC with Sa02 93%. * Incentive spirometer. * Blood culture no growth to date. * Home O2 (3) Pulmonary edema: Code(s): J81.1 - Chronic pulmonary edema Status: Acute Assessment and Plan: Echocardiogram EF 65-70% BNP 2109 Repeat chest x-ray (4) Acute hypoxic respiratory failure: Code(s): J96.01 - Acute respiratory failure with hypoxia Status: Acute Assessment and Plan: Improving * Home O2 (5) COPD (chronic obstructive pulmonary disease): Code(s): J44.9 - Chronic obstructive pulmonary disease, unspecified Status: Acute Assessment and Plan: * Duoneb q 6. * 02@1LNC with Sa02 93%. * Chest CT (6) Diabetes: Code(s): E11.9 - Type 2 diabetes mellitus without complications Status: Acute Assessment and Plan: * Hypoglycemic protocol. * SSI. * HgbA1c 8.1%. * Monitor blood sugars. (7) Cirrhosis: Code(s): K74.60 - Unspecified cirrhosis of liver Status: Acute Assessment and Plan: Found on CT unknown if patient was aware Plan Lingular nodule. Follow-up out patient CT chest recommended. CT shows Calcified right lung nodules and calcified right hilar and mediastinal lymph nodes are consistent with old granulomatous disease. DS: Summary Hospital Course Reason for hospitalization: Influenza a and pneumonia Hospital Course: 64 year old female that presented to the ER with chest pain and shortness of breath. Patient reports that she has not been feeling good for the past couple of weeks. Patient report that when she goes upstairs to go to the restroom she gets short of breath. Patient reports a cough with clear sputum. Patient was exposed to influenza in her household. Patient denies palpitations, headache, dizziness, nausea, or vomiting. Patient was found to have influenza a and was started on Tamiflu, guaifenesin and breathing treatments. Patient had high oxygen requirements initially and was able to wean down to 2 L nasal cannula. Yesterday patient repeat chest x- ray which showed pneumonia and she is started on IV antibiotics. She had a home walking study for home O2. Patient states that she is feeling much better now after antibiotics have been started and she is ready to go home. Oxygen has been ordered. She would discharge on oral antibiotics. Hospital course uneventful. Time Spent with Patient Time attestation: Total time spent providing and/or coordinating discharge services: Time spent: Greater than 30 minutes Exam Narrative: General: well appearing, appears stated age. HEENT: normocephalic, atraumatic. Mucous membranes moist. EOMI, PERRLA, bilateral sclera anicteric, no conjunctival injection. Neck supple without JVD, lymphadenopathy, or bruit. Respiratory: [place] ascultation bilaterally. No rales/rhonic/wheezes. Cardiovascular: Regular rate and rhythm, normal S1-S2 upon ascultation. No murmurs, rubs, or clicks. PMI is nondisplaced, capillary refill less than 3 second. Abdomen: Soft, round, no pulsatile masses, nondistended and nontender. No rebound, no guarding. No CVA tenderness, no hepatosplenomegaly. Bowel sounds present to all four quadrants. No high pitch or tinkling sounds, resonant to percussion. Extremities: No cyanosis, clubbing, or edema present. Pulses are palpable 2/2. Active ROM to all four extremities. Neuro: Alert and orientated x 4. PERRLA. Cranial nerves 2-12 intact without focal deficit. Skin: Warm, dry, and intact, without rash, erythema, or lesion. Psych: pleasant, cooperative, normal speech, normal affect, no hallucinations, no dysarthia DS: Data Data Completed and Pending Labs on day of discharge: Labs from last 24 hours 12/17/24 12/16/24 12/16/24 08:09 20:44 16:34 POC Capillary Glucose 147 H 130 H 113 H 12/16/24 11:27 POC Capillary Glucose 136 H Preliminary micro results at discharge 12/12/24 05:47 Blood Culture - Preliminary Blood 12/12/24 05:34 Blood Culture - Preliminary Blood Discharge Plan Discharge Discharging Clinician: Becca Connolly Anticipated Discharge Date/Time: 12/17/24 09:31 Patient Disposition: Home, Self-Care Activity: may shower Diet: regular Discharge Instructions: Discharge instructions: Take medications as prescribed New medications prescribed: Antibiotics take as directed Oxygen 1 L with activities, you do not need to use at rest during the day Follow-up with PCP for weaning in 1 week You are activity as tolerated Monitor blood pressures Avoid social areas, you wear a mask when in social settings Encouraged to continue with yearly vaccinations Return to the emergency department if he developed sudden shortness of breath, chest pain, nausea, vomiting, upset stomach or intractable diarrhea Return to the emergency department if you develop fever greater than 101.5 Follow-up with: Your primary care physician within 1 weeks for post hospitalization check up Thank you for [facility] for your healthcare needs Patient Instructions: Antibiotic Form, Community Acquired Pneumonia (DC) Patient Language: Romansh Stand Alone Forms: General Discharge Information Follow-up/Referrals: Munir,Fday Claros MD [Primary Care Provider] - 1 Week Discharge Medications: New azithromycin [Zithromax] 250 mg Tablet 500 mg PO DAILY Qty: 8 0RF amoxicillin-pot clavulanate 875-125 mg tablet 1 tablet PO Q12H 5 Days Qty: 7 0RF Continued ergocalciferol (vitamin D2) 1,250 mcg (50,000 unit) capsule 5,000 mcg PO WEEKLY gabapentin 300 mg capsule 300 mg PO TID lactulose 10 gram/15 mL solution 30 ml PO Q6H PRN (Reason: laxative effect) losartan 25 mg tablet 25 mg PO DAILY metformin 500 mg tablet extended release 24 hr 500 mg PO QPM nicotine 21 mg/24 hr patch 24 hour 1 patch topical Q24H pantoprazole 40 mg tablet,delayed release (DR/EC) 40 mg PO DAILY rosuvastatin 10 mg tablet 10 mg PO DAILY trazodone 150 mg tablet 150 mg PO HS fluticasone propion-salmeterol [Wixela Inhub] 500-50 mcg/dose blister with device 1 inh INHALATION Q12H albuterol sulfate [Ventolin HFA] 90 mcg/actuation HFA aerosol inhaler 2 inh inhalation Q8H PRN (Reason: shortness of breath or wheezing) Date of admission: 12/12/24 06:52 Primary Care Provider: Munir,Fady Claros Admitting Provider: Jennifer Lewis Attending physician on admission: Jennifer Lewis Condition: Stable Hospitalist MIPS Heart Failure (Exclusion) Patient has history of Heart Transplant or Left Ventricular Assistive Device?: No IF YES, STOP HERE Heart Failure (Qualifier) Patient has current or prior documentation of LVEF less than or equal to 40%, or mod/servere depressed LVSF?: No IF NO, STOP HERE
[2024-12-17 09:30] VITALS: O2SAT 93
[2024-12-17] MEDS: AZITHROMYCIN 250 MG TABLET 500 MG PO (10:49)
[2024-12-17] MEDS: AMOXICILLIN/CLAVULANATE K 875-125 MG TAB 1 TABLET PO (10:49)
== END 2024-12-17 12:00 | disposition home or self-care (01) | DRG 194 ==
LOC: ANHED 06:55 → ANH3MEDSUR 07:30
PROVIDERS: Nurse Practitioner Family; Admitting Provider Internal Medicine; Emergency Provider Emergency Medicine; PCP Family Medicine; Visit Provider Nurse Practitioner Gerontology
DX: J10.08 Influenza due to other identified influenza virus with other specified pneumonia (principal); J81.1 Chronic pulmonary edema; J12.9 Viral pneumonia, unspecified; J44.0 Chronic obstructive pulmonary disease with (acute) lower respiratory infection; K74.60 Unspecified cirrhosis of liver; E11.9 Type 2 diabetes mellitus without complications; F17.210 Nicotine dependence, cigarettes, uncomplicated
CPT/HCPCS: 36415; 36600; 71045; 71250; 80053; 81003; 82805; 82948; 83036; 83605; 83690; 83735; 83880; 84100; 84484; 85018; 85025; 85380; 85610; 85730; 87040; 87637; 93005; 94618; 94640; 99285; A9270; C8929; J0456; J0696; J1815; J2919; J7120; Q9957